=== PATIENT | female | born 1960 | race Caucasian/White ===

== ENCOUNTER 2019-10-12 13:30 | Outpatient (RCR) | payer MEDICARE, BC, SELFPAY ==
--- NOTE | 2019-09-22 13:35 | PTOPEVAL ---
Thank you for referring this patient to [facility]. Please review, sign, date and return this plan of care AVERY. Pt seen for initial physical therapy evaluation to address impairments related to her left shoulder pain. She requires additional skilled therapy 2x/wk x 8 wk to achieve therapy goals and improve UE function. I agree with and certify that the following plan of care is medically necessary. 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 She is Family unable to note a specific injury to her left UE. She reports all movements and position cause increased pain. She reports radiating numbness and tingling of left UE with decreased light touch sensation. 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 The pain is waking her at night. She has tried various position of left UE without relief of symptoms . She is unable to victoria prone position due to shoulder pain. She is unable to sitting or being supine due to bladder pacemaker. She was getting monthly massages, but is unable to to
--- NOTE | 2019-10-03 14:50 | PCPTNOTE ---
Patient called & cancelled scheduled appointment this date.
--- NOTE | 2019-10-10 14:11 | PCPTNOTE ---
Patient called & cancelled scheduled appointment this date due to illness
--- NOTE | 2019-10-17 14:03 | PCPTNOTE ---
Patient called & cancelled scheduled appointment this date due to illness.
--- NOTE | 2019-11-11 10:09 | PCPTNOTE ---
Admitting Provider: Attending Provider: Luigi Mello MD Patient:Jennifer Martinez Date of :1960 Patient has not returned for any further treatments since 10/12/2019, therefore she will be discharged from therapy at this time. The goals have not been achieved due to pt seen for 4 therapy visits. Thank you for referring this patient to [facility]. Please review, sign, date and return this discharge summary AVERY. I have been updated about the patient's current status and I agree with discharge from the above service at this time. Referring Physician Date
== END 2019-11-11 10:43 | disposition home or self-care (01) ==
LOC: ANHPT 13:30
PROVIDERS: PCP Internal Medicine; Visit Provider Internal Medicine
DX: M25.512 Pain in left shoulder (principal)
CPT/HCPCS: 97014; 97110; 97140; 97162; G0283

== ENCOUNTER 2021-02-11 09:27 | Outpatient (CLI) | payer MEDICARE, BC, SELFPAY ==
--- NOTE | ~2021-02-11 | MM_ITS ---
EXAMINATION: MM screening [facility] BI w nga HISTORY: Screening mammogram TECHNIQUE: Craniocaudal and mediolateral oblique 3-D tomosynthesis images were obtained and synthetic 2-D images were generated. CAD analysis was submitted and interpreted. COMPARISON: 11/30/2018, 11/26/2017, 11/24/2016 BREAST PARENCHYMAL COMPOSITION: There are scattered areas of fibroglandular density. FINDINGS: Again noted is a stable mass in the posterior third outer left breast, considered benign gi catrina the lack of interval change. There is no evidence of suspicious mass, calcification, or biztalk architect ural distortion to suggest malignancy in either breast. There has been no suspicious interval change. IMPRESSION: 1. No mammographic evidence of malignancy. 2. Recommend routine screening mammography in one year. BI-RADS Category 2: Benign finding(s). Reviewed, dictated and finalized at location A.
--- NOTE | ~2021-02-11 | CT_ITS ---
EXAMINATION:CT lung screening DATE: 02/11/2021 10:44 INDICATION: Personal history of tobacco dependence. Current smoker with 40 pack year history. TECHNIQUE: Computed tomography (CT) of the chest was performed without intravenous contrast. Automate d exposure control and iterative reconstruction technique were employed. The dose-length product (DLP ) was 79.15 mGy-cm. COMPARISON: Chest CT 07/05/2019 FINDINGS: There is mild scarring at the lung apices. There is mild emphysema. There is mild atelectas is bilaterally. A calcified left lung nodule and calcified left hilar and mediastinal lymph nodes are consistent with old granulomatous disease. No pleural effusion. The heart size is normal. There are coronary artery calcifications. No pericardial effusion. There are changes of anterior fusion procedu re in cervical spine. Calcifications in the spleen are consistent with old granulomatous disease. The re is mild thoracic spondylosis. IMPRESSION: 1. Lung-RADS category 2: Benign appearance or behavior. Continue annual screening with noncontrast lo w-dose chest CT in 12 months. Reviewed, dictated and finalized at location B. IMPRESSION: 1. Lung-RADS category 2: Benign appearance or behavior. Continue annual screeni ng with noncontrast low-dose chest CT in 12 months.
== END 2021-02-11 09:28 | disposition home or self-care (01) ==
LOC: ANHIMG 09:29
PROVIDERS: PCP Internal Medicine; Visit Provider Internal Medicine
DX: Z12.31 Encounter for screening mammogram for malignant neoplasm of breast (principal); Z87.891 Personal history of nicotine dependence
CPT/HCPCS: 71271; 77063; 77067

== ENCOUNTER 2021-08-07 08:06 | Outpatient (CLI) | payer MEDICARE, BC, SELFPAY ==
--- NOTE | 2021-08-26 12:09 | WPDSLEEPSTUD ---
Sleep Study Date of Study: 08/07/21 <Jesusita Washington DO - Last Filed: 08/26/21 13:47> Ordering Provider: Mukesh Mederos APRN <Jesusita Washington DO - Last Filed: 08/26/21 13:47> Interpreting Physician: Jesusita Washington DO <Jesusita Washington DO - Last Filed: 08/26/21 13:47> Sleep Study Type: Polysomnogram <Jesusita Washington DO - Last Filed: 08/26/21 13:47> Height: 1.65 m <Jesusita Washington DO - Last Filed: 08/26/21 13:47> Weight: 66.224 kg <Jesusita Washington DO - Last Filed: 08/26/21 13:47> Body Mass Index: 24.3 <Jesusita Washington DO - Last Filed: 08/26/21 13:47> Neck Circumference (inches): 13.5 <Jesusita Washington DO - Last Filed: 08/26/21 13:47> [place]: 8 <Jesusita Washington DO - Last Filed: 08/26/21 13:47> Reason for Sleep Study Needs new CPAP equipment and Medicare needs her to requalify for PAP. Dancing legs at night. <Jesusita Washington DO - Last Filed: 08/26/21 13:47> Sleep History The patient is a 61-year-old female with non ischemic cardiomyopathy, hypertension, hyperlipidemia, Type 2 DM, Rheumatoid Arthritis, and ANYA on CPAP that needs a new machine. The patient states that she uses her CPAP every night. the patient states that her legs jump throughout the night. She was diagnosed with ANYA in [address] Abdi Lucas at [facility]. The patient states that she rarely awakens from sleep short of breath. She wears early awakens at night with heartburn, belching or cough. She constantly snores loud enough that others complain. She constantly has trouble sleeping when she has a cold. She rarely wakes up gasping for air throughout the night. She frequently has breathing problems at night observed by others. She constantly sweats of sessile E at night. She occasionally notices heart palpitations or irregular heartbeats throughout the night. She denies falling asleep during the day and while driving. She denies sleep paralysis. She rarely experiences loss of muscle tone when extremely emotional. She rarely experiences vivid dreamlike scenes upon awakening or falling asleep. She occasionally has nightmares. She frequently remembers her dreams. She occasionally has thoughts racing through her mind. She occasionally feels sad, depressed and anxious. She constantly notices parts of her body jerk as well as kicking throughout the night. She rarely experiences crawling and aching feelings in her legs. She rarely experiences leg pain during the night. She rarely grinds her teeth during sleep but will occasionally awaken with morning jaw pain. She is frequently bothered by pain during the day and is occasionally awakened by pain during the night. She constantly wakes up feeling stiff in the morning with sore and achy muscles. She does not have a set bedtime on weekdays. She will go to bed around midnight on the weekends. She does unsure how long it takes her to fall asleep. She will wake up 3 times throughout the night. When she wakes up, she will use the restroom or get something to drink. She wakes up between 8 and 9:00 a.m. on the weekdays and between 9 and 10:00 a.m. on the weekends. She typically gets 7 hours of sleep per night. She does not stay in bed after waking up in the morning. She is currently living with her . She is retired. She does not consume any caffeinated beverages within 2 hours of bedtime. She does not engage in physical exercise before bedtime. She will watch television before falling asleep. She does not take naps in the afternoon or the evening. She smokes 5 cigarettes per day. She drinks 2 caffeinated beverages per day. She will drink alcohol once per week. She denies recreational drug use. <Jesusita Washington DO - Last Filed: 08/26/21 13:47> [facility] Past Medical History Medical History: Medical History Abdominal discomf
[2021-08-26 13:45] VITALS: BMI 24.3
== END 2021-08-08 08:11 | disposition home or self-care (01) ==
LOC: ANHCSM 08:16
PROVIDERS: PCP Internal Medicine; Visit Provider Nurse Practitioner Family
DX: G47.10 Hypersomnia, unspecified (principal); G47.33 Obstructive sleep apnea (adult) (pediatric); Z99.89 Dependence on other enabling machines and devices; G47.61 Periodic limb movement disorder
CPT/HCPCS: 95810

== ENCOUNTER → 2021-10-24 02:26 | Outpatient (CLI) | payer MEDICARE, BC, SELFPAY ==
[2021-10-24 14:28] LABS: Influenza A QL RT-PCR Negative (Negative); Influenza B QL RT-PCR Negative (Negative)
[2021-10-24 21:12] LABS: SARS-CoV-2 RNA PCR Negative
== END ==
PROVIDERS: PCP Internal Medicine; Visit Provider Internal Medicine
DX: R68.89 Other general symptoms and signs (principal); Z20.822 Contact with and (suspected) exposure to COVID-19
CPT/HCPCS: 87502; C9803; U0003; U0005

== ENCOUNTER 2021-10-30 14:06 | Outpatient (CLI) | payer MEDICARE, BC, SELFPAY | END 2021-10-30 14:07 | disposition home or self-care (01) | PROVIDERS: PCP Internal Medicine; Visit Provider Nurse Practitioner Family | DX: G47.61 Periodic limb movement disorder (principal) | CPT/HCPCS: 36415; 82728 ==

== ENCOUNTER 2021-11-05 07:42 | Outpatient (CLI) | payer MEDICARE, BC, SELFPAY ==
--- NOTE | 2021-11-12 12:34 | WPDHOMESLEEP ---
Sleep Study - Home Unattended Date of Study: 11/05/21 <Jesusita Washington DO - Last Filed: 11/12/21 12:57> Ordering Provider: Mukesh Mederos APRN <Jesusita Washington DO - Last Filed: 11/12/21 12:57> Interpreting Provider: Jesusita Washington DO <Jesusita Washington, DO - Last Filed: 11/12/21 12:57> Home Sleep Study Type: Apnea Link Air <Jesusita Washington DO - Last Filed: 11/12/21 12:57> Height: 1.65 m <Jesusita Washington DO - Last Filed: 11/12/21 12:57> Weight: 62.142 kg <Jesusita Washington DO - Last Filed: 11/12/21 12:57> Body Mass Index: 22.8 <Jesusita Washington DO - Last Filed: 11/12/21 12:57> Neck Circumference (inches): 13.5 <Jesusita Washington DO - Last Filed: 11/12/21 12:57> [place]: 8 <Jesusita Washington DO - Last Filed: 11/12/21 12:57> Reason for Sleep Study Patient has known ANYA and needs new equipment. <Jesusita Washington DO - Last Filed: 11/12/21 12:57> Sleep History The patient is a 61-year-old female with hypertension, nonischemic cardiomyopathy, GERD, irritable bowel syndrome, rheumatoid arthritis, type 2 diabetes, asthma and known ANYA that had a home sleep test ordered by the pulmonary group so the patient could get new CPAP equipment. The patient states that she uses her CPAP every night. the patient states that her legs jump throughout the night. She was diagnosed with ANYA in [address] Abdi Lucas at [facility]. The patient states that she rarely awakens from sleep short of breath. She wears early awakens at night with heartburn, belching or cough. She constantly snores loud enough that others complain. She constantly has trouble sleeping when she has a cold. She rarely wakes up gasping for air throughout the night. She frequently has breathing problems at night observed by others. She constantly sweats of sessile E at night. She occasionally notices heart palpitations or irregular heartbeats throughout the night. She denies falling asleep during the day and while driving. She denies sleep paralysis. She rarely experiences loss of muscle tone when extremely emotional. She rarely experiences vivid dreamlike scenes upon awakening or falling asleep. She occasionally has nightmares. She frequently remembers her dreams. She occasionally has thoughts racing through her mind. She occasionally feels sad, depressed and anxious. She constantly notices parts of her body jerk as well as kicking throughout the night. She rarely experiences crawling and aching feelings in her legs. She rarely experiences leg pain during the night. She rarely grinds her teeth during sleep but will occasionally awaken with morning jaw pain. She is frequently bothered by pain during the day and is occasionally awakened by pain during the night. She constantly wakes up feeling stiff in the morning with sore and achy muscles. She does not have a set bedtime on weekdays. She will go to bed around midnight on the weekends. She does unsure how long it takes her to fall asleep. She will wake up 3 times throughout the night. When she wakes up, she will use the restroom or get something to drink. She wakes up between 8 and 9:00 a.m. on the weekdays and between 9 and 10:00 a.m. on the weekends. She typically gets 7 hours of sleep per night. She does not stay in bed after waking up in the morning. She is currently living with her . She is retired. She does not consume any caffeinated beverages within 2 hours of bedtime. She does not engage in physical exercise before bedtime. She will watch television before falling asleep. She does not take naps in the afternoon or the evening. She smokes 5 cigarettes per day. She drinks 2 caffeinated beverages per day. She will drink alcohol once per week. She denies recreational drug use. <Jesusita Washington, DO - Last Filed: 11/12/21 12:57> [facility] Past Medical History Medical History: Medical
[2021-11-12 12:40] VITALS: BMI 22.8
== END 2021-11-08 14:28 | disposition home or self-care (01) ==
PROVIDERS: PCP Internal Medicine; Visit Provider Nurse Practitioner Family
DX: G47.33 Obstructive sleep apnea (adult) (pediatric) (principal); G47.10 Hypersomnia, unspecified
CPT/HCPCS: 95806

== ENCOUNTER 2022-01-28 13:25 | Outpatient (CLI) | payer MEDICARE, BC, SELFPAY ==
--- NOTE | ~2022-01-28 | XR_ITS ---
EXAMINATION: XR sacrum coccyx min 2V INDICATION: Pain after fall TECHNIQUE: Three views of the sacrum and coccyx are obtained. COMPARISON: None available FINDINGS: Bone alignment is normal. No fracture is identified. An electronic stability device is impl anted in the posterior subcutaneous tissues on the right. Its lead enters the left pelvis through the left S3 neural foramen. A right pelvic phlebolith is noted. IMPRESSION: 1. No acute osseous abnormality. Reviewed, dictated and finalized at location F.
== END 2022-01-28 13:26 | disposition home or self-care (01) ==
PROVIDERS: PCP Internal Medicine; Visit Provider Internal Medicine
DX: M53.3 Sacrococcygeal disorders, not elsewhere classified (principal)
CPT/HCPCS: 72220

== ENCOUNTER 2022-04-16 10:23 | Outpatient (CLI) | payer MEDICARE, BC, SELFPAY ==
--- NOTE | ~2022-04-16 | DEXA_ITS ---
Bone Density Report Name: SHEILA ESCOBAR Age: 62 Sex: Female Ethnicity: White Date of : 1960 Indication: postmenopausal; screening for osteoporosis; height loss; hysterectomy; rheumatoid arthritis; Referring Provider: JEAN CARLOS CAMPBELL Study: Bone densitometry was performed. Exam Date: April 16, 2022 Accession number: [id number] Bone Density: Region BMD T-score Z-score Classification AP Spine(L1-L4) 1.093 0.4 2.0 Normal Femoral Neck (Left) 0.816 -0.3 1.1 Normal Total Hip (Left) 0.862 -0.7 0.5 Normal Femoral Neck (Right) 0.820 -0.3 1.2 Normal Total Hip (Right) 0.891 -0.4 0.7 Normal Total Hip Mean 0.876 -0.6 0.6 Normal World Health Organization criteria for BMD impression classify patients as: Normal (T-score at or above -1.0), Osteopenia (T-score between -1.0 and -2.5), or Osteoporosis (T-score at or below -2.5). 10-year Fracture Risk: FRAX not reported because: All T-scores for Spine Total, Hip Total, Femoral Neck at or above -1.0 Clinical Information Provided by Patient: Has rheumatoid arthritis Has used the following medications: Vitamin D, Calcium Has the following medical conditions: Hysterectomy Patient maximum height was 65 Menopause Age: 31 No regular weight bearing exercise Drinks caffeinated beverages Onset of menses at age 10 Number of children 1 Impression: The patient has normal bone mass. Discussion: BONE DENSITY IS ABOVE THE MINIMUM DESIRABLE LEVEL AT ALL SKELETAL SITES TESTED. This patient?s bone mineral density is above the minimum desirable level (T-score -1.0 or better) at all sites measured. The patient should follow a healthful lifestyle (good nutrition with adequate calcium and vitamin D, and appropriate weight-bearing exercise). Follow-Up: Consider repeating this study in 5 years or sooner if there is some new clinical indication. Reported by: [facility] on 04/16/2022 11:03:00 AM. Reviewed, dictated and finalized at location ABreann BERNSTEIN
--- NOTE | ~2022-04-16 | MM_ITS ---
EXAMINATION: MM screening [facility] BI w nga HISTORY: Screening mammogram TECHNIQUE: Craniocaudal and mediolateral oblique 3-D tomosynthesis images were obtained and synthetic 2-D images were generated. CAD analysis was submitted and interpreted. COMPARISON: 02/11/2021, 11/30/2018, 11/26/2017 BREAST PARENCHYMAL COMPOSITION: There are scattered areas of fibroglandular density. FINDINGS: A stable mass in the posterior third of the outer left breast is considered benign given th e lack of interval change. There is no suspicious mass, calcification, or architectural distortion to suggest malignancy in either breast. There has been no suspicious interval change. IMPRESSION: 1. No mammographic evidence of malignancy. 2. Recommend routine screening mammography in one year. BI-RADS Category 2: Benign finding(s). Reviewed, dictated and finalized at location A.
== END 2022-04-16 10:24 | disposition home or self-care (01) ==
PROVIDERS: PCP Internal Medicine; Visit Provider Internal Medicine
DX: Z12.31 Encounter for screening mammogram for malignant neoplasm of breast (principal); Z78.0 Asymptomatic menopausal state
CPT/HCPCS: 77063; 77067; 77080

== ENCOUNTER 2022-05-06 13:11 | Outpatient (CLI) | payer MEDICARE, BC, SELFPAY ==
--- NOTE | ~2022-05-06 | CT_ITS ---
EXAMINATION:CT lung screening DATE: 05/06/2022 13:29 INDICATION: Tobacco use. Smoker who quit 2 years ago with 42 pack year history. TECHNIQUE: Computed tomography (CT) of the chest was performed without intravenous contrast. Automate d exposure control and iterative reconstruction technique were employed. The dose-length product (DLP ) was 69.18 mGy-cm. COMPARISON: Chest CT 02/11/2021 FINDINGS: There is mild emphysema. There is chronic mild scarring at the lung apices. There is chroni c peripheral septal thickening in the lungs. Calcified left lung nodules and calcified left hilar and mediastinal lymph nodes are consistent with old granulomatous disease. There is a 2 mm nodule in rig ht upper lobe. No pleural effusion. The heart size is normal. There are coronary artery calcification s. No pericardial effusion. Calcifications in the liver and spleen are consistent with old granulomat ous disease. There is mild thoracic spondylosis. There are changes of anterior fusion procedure in ce rvical spine. IMPRESSION: 1. Lung-RADS category 2: Benign appearance or behavior. Continue annual screening with noncontrast lo w-dose chest CT in 12 months. Reviewed, dictated and finalized at location A. IMPRESSION: 1. Lung-RADS category 2: Benign appearance or behavior. Continue annual screeni ng with noncontrast low-dose chest CT in 12 months.
== END 2022-05-06 13:12 | disposition home or self-care (01) ==
PROVIDERS: PCP Internal Medicine; Visit Provider Physician Assistant
DX: Z12.2 Encounter for screening for malignant neoplasm of respiratory organs (principal); Z87.891 Personal history of nicotine dependence
CPT/HCPCS: 71271

== ENCOUNTER 2022-06-24 00:04 | Day surgery (SDC) | payer MEDICARE, BC, SELFPAY ==
--- NOTE | 2022-06-06 14:16 | PC.NURSE ---
pt denies any changes in medication or medical hx since last PAT phone call. verified new date and time of procedure. pt denies any questions.
[2022-06-24 07:13] VITALS: BP 117/76; PULSE 108; RESP 20; TEMP 36.7; O2SAT 99
[2022-06-24] MEDS: LACTATED RINGERS 1,000 ML 150 ML IV CONT (07:15)
[2022-06-24 07:22] LABS: Glucose Point of Care 182 mg/dl (65-105)
--- NOTE | 2022-06-24 07:41 | WPDANESEPPF ---
Anes - Initial Pre Proc Eval Procedure: Operation Date: 06/24/22 08:30 Proposed Procedures p Esophagogastroduodenoscopy & Screening Colonoscopy - Felix Easley MD Date/Time: 06/24/22 07:41 Surgeon: Felix Easley MD Pre Op Diagnosis: nausea, hx of colon polyps Patient Data Age: 62 Gender: F Height: 1.65 m Weight: 62.2 kg Last Vital Signs Temp 36.7 C 06/24/22 07:13 Pulse 108 H 06/24/22 07:13 Resp 20 06/24/22 07:13 BP 117/76 06/24/22 07:13 Pulse Ox 99 06/24/22 07:13 O2 Del Method Room Air 06/24/22 07:13 Allergies Allergy/AdvReac Type Severity Reaction Status Date / Time adhesive tape Allergy Intermediate Blister Verified 06/24/22 07:10 ALEERGY MEDS W DECONGESTANT Allergy Intermediate Palpitation Uncoded 05/14/22 10:48 s Home Medications Medication Instructions Recorded Confirmed Type metoprolol succinate 100 mg 100 mg PO DAILY #90 tabs 01/11/21 05/14/22 Rx tablet,extended release 24 hr alprazolam 0.5 mg tablet,extended 0.5 mg PO DAILY PRN anxiety #30 07/23/21 05/14/22 Rx release 24 hr (Xanax XR) tabs losartan 25 mg tablet 25 mg PO DAILY #1 tablet 07/23/21 05/14/22 Rx multivitamin (Multiple Vitamins 1 tablet PO DAILY 07/23/21 05/14/22 History tablet) vitamin B complex (B 1 tablet PO DAILY 07/23/21 05/14/22 History Complex-Vitamin B12 tablet) gabapentin 300 mg capsule 300 mg PO TID 90 days #270 caps 03/10/22 05/14/22 Rx atorvastatin 40 mg tablet 40 mg PO DAILY #90 tabs 03/25/22 05/14/22 Rx duloxetine 60 mg capsule,delayed 60 mg PO BID #180 caps 03/31/22 05/14/22 Rx release potassium chloride 20 mEq 20 meq PO BID #180 tabs 04/17/22 05/14/22 Rx tablet,extended release hydroxychloroquine 200 mg tablet 200 mg PO DAILY #90 tabs 05/12/22 05/14/22 Rx (Plaquenil) leflunomide 20 mg tablet 20 mg PO DAILY #90 tabs 05/12/22 05/14/22 Rx amlodipine 10 mg tablet 10 mg PO DAILY 05/14/22 05/14/22 History omeprazole 40 mg capsule,delayed 40 mg PO DAILY 05/14/22 05/14/22 History release Laboratory Tests 06/24/22 07:19 POC Capillary Glucose 182 mg/dl H mg/dl (65-105) Patient hx anesthesia problems: none Family hx anesthesia problems: none Results Review: All pre-operative results and documents have been reviewed as part of the pre-operative evaluation. [facility] Past Medical History Medical History Abdominal discomfort Abnormal echocardiogram Abnormal findings on esophagogastroduodenoscopy (EGD) Acute recurrent sinusitis Adenomatous polyp of colon Allergies RUMA positive Anxiety Arthralgia of both hands Arthritis Bilateral impacted cerumen Chronic diarrhea Colitis COPD exacerbation Diabetes Diarrhea, unspecified Dietary counseling and surveillance (01/08/17) Encounter for medication counseling Essential (primary) hypertension Establishing care with new doctor, encounter for Gastroesophageal reflux Health counseling HTN (hypertension) Irritable bowel syndrome with diarrhea Left anterior shoulder pain Loose stools Lung nodule Microscopic colitis Microscopic hematuria Nausea ANYA (obstructive sleep apnea) Osteoarthritis involving multiple joints on both sides of body Other chronic pain Other specified diabetes mellitus with diabetic polyneuropathy Pain in left hand (03/22/19) Pain in right hand (03/22/19) Postmenopausal Potassium (K) deficiency Rheumatoid arthritis (~1999) Rheumatoid arthritis involving multiple sites with positive rheumatoid factor Screening mammogram, encounter for Seropositive rheumatoid arthritis of hand Systolic dysfunction Systolic murmur Tobacco use Type 2 diabetes mellitus with complication, without long-term current use of insulin Type 2 diabetes mellitus with hyperglycemia Unspecified asthma, uncomplicated Weight loss Yeast infection Surgical History Surgical History (Updated 06/24/22 @ 07:44 by Jayjay Gao MD) H/O col
--- NOTE | 2022-06-24 08:17 | PM.HPGS ---
History of Present Illness History of Present Illness Consent: Risks, benefits, and alternatives have been discussed and questions answered. Patient agrees to proceed with procedure. Chief complaint: nausea, hx of colon polyps Narrative: Jennifer Martinez is a 62 year old female here for another egd and colonoscopy. She has h/o RA and SLE, she is not longer on rituxamab because weight loss 2018, now on leflunamide and plaquenil. I saw her on 2019 when had EGD that showed gastritis, normal duodenal bx, random colon bx with mild colitis and had 2cm TA polyp remover over submucosal injection with dysplasia. She has chronic diarrhea but worsened with accidents, last office visit prescribed budesonide. Review of Systems Constitutional: Constitutional: Denies headache(s) and Denies weakness Eyes: Eyes: Denies blurry vision ENT: Reports Normal hearing present, Denies headache(s) and Denies neck pain Cardiovascular: Cardiovascular: Denies chest pain and Denies dyspnea Respiratory: Respiratory: Denies dyspnea Gastrointestinal: Gastrointestinal: Reports no additional gastrointestinal complaints Genitourinary: Genitourinary: Denies dysuria Musculoskeletal: Musculoskeletal: Denies neck pain Integumentary/Breasts: Skin/Breast: Denies dry skin Neurologic: Reports Normal hearing present, Denies headache(s) and Denies weakness Psychiatric: Psychiatric: Denies anxiety Endocrine: Endocrine: Denies change in body appearance Hematologic/Lymphatic: Hematologic/Lymphatic: Denies easy bleeding Allergic/Immunologic: Allergic/Immunologic: Denies urticaria PMFSH Past Medical History Medical History Abdominal discomfort Abnormal echocardiogram Abnormal findings on esophagogastroduodenoscopy (EGD) Acute recurrent sinusitis Adenomatous polyp of colon Allergies RUMA positive Anxiety Arthralgia of both hands Arthritis Bilateral impacted cerumen Chronic diarrhea Colitis COPD exacerbation Diabetes Diarrhea, unspecified Dietary counseling and surveillance (01/08/17) Encounter for medication counseling Essential (primary) hypertension Establishing care with new doctor, encounter for Gastroesophageal reflux Health counseling HTN (hypertension) Irritable bowel syndrome with diarrhea Left anterior shoulder pain Loose stools Lung nodule Microscopic colitis Microscopic hematuria Nausea ANYA (obstructive sleep apnea) Osteoarthritis involving multiple joints on both sides of body Other chronic pain Other specified diabetes mellitus with diabetic polyneuropathy Pain in left hand (03/22/19) Pain in right hand (03/22/19) Postmenopausal Potassium (K) deficiency Rheumatoid arthritis (~1999) Rheumatoid arthritis involving multiple sites with positive rheumatoid factor Screening mammogram, encounter for Seropositive rheumatoid arthritis of hand Systolic dysfunction Systolic murmur Tobacco use Type 2 diabetes mellitus with complication, without long-term current use of insulin Type 2 diabetes mellitus with hyperglycemia Unspecified asthma, uncomplicated Weight loss Yeast infection Surgical History Surgical History (Updated 06/24/22 @ 07:44 by Jayjay Gao MD) H/O colonoscopy History of esophagogastroduodenoscopy (EGD) Family History Family History Mother Diabetes mellitus Family history of osteoporosis Family history of malignant neoplasm Father Cerebrovascular accident Family history of congestive heart failure Other Family history of cardiovascular disease Family history of mental disorder Hypertension Social History Social History Social History: Quit smoking 2019. Smoking packs per day: 0.5 Smoking cigarettes per day: 10.0 Years smoked: 40 Smoking pack-years: 20.00 Smoking status: Former smoker Tobacco type: cigarettes Second hand tobacco smok
--- NOTE | 2022-06-24 08:43 | SUR.OPER ---
EGD ended at 836. Colonoscopy started at 08.
[2022-06-24 08:53] VITALS: BP 86/56; PULSE 87; RESP 24; O2SAT 95
[2022-06-24 09:03] VITALS: BP 74/47; PULSE 80; RESP 24; O2SAT 96
--- NOTE | 2022-06-24 09:04 | SUR.PHASEII ---
Notified Dr. Gao that patient not responding and BP 70s/40s. Dr. Gao assessed patient and found response to painful stimuli. 0910 - patient responding to verbal stimuli now.
[2022-06-24 09:13] VITALS: BP 104/74; PULSE 82; RESP 24; O2SAT 99
== END 2022-06-24 09:38 | disposition home or self-care (01) ==
PROVIDERS: PCP Internal Medicine; Visit Provider Internal Medicine Gastroenterology
PROC: 0DJ08ZZ Inspection of Upper Intestinal Tract, Via Natural or Artificial Opening Endoscopic (ICD-10-PCS; CPT 43235; principal; 2022-06-24 08:30)
DX: K52.832 Lymphocytic colitis (principal); D12.3 Benign neoplasm of transverse colon; K64.8 Other hemorrhoids; K21.9 Gastro-esophageal reflux disease without esophagitis; K22.70 Barrett's esophagus without dysplasia; K29.70 Gastritis, unspecified, without bleeding; J44.9 Chronic obstructive pulmonary disease, unspecified; F41.9 Anxiety disorder, unspecified; G47.33 Obstructive sleep apnea (adult) (pediatric); E11.42 Type 2 diabetes mellitus with diabetic polyneuropathy; M06.9 Rheumatoid arthritis, unspecified; I11.9 Hypertensive heart disease without heart failure; Z87.891 Personal history of nicotine dependence
CPT/HCPCS: 45380; 45385; 43239; 82948; 88305; J2001; J2704; J7120

== ENCOUNTER 2022-09-06 20:24 | Emergency (ER) | payer MEDICARE, BC, SELFPAY ==
--- NOTE | ~2022-09-06 | XR_ITS ---
EXAMINATION: XR chest 1V portable Exam Date/Time: 09/06/2022 20:52 DIGITAL PHOTOGRAPHER HISTORY: flu like symptoms; hx of HTN, COPD, DM, prev smoker Comparison: 07/14/2019. RESULT: Lines, tubes, and devices: Cervical fusion hardware. Lungs and pleura: Clear. Cardiomediastinal silhouette: Stable. Other: No acute osseous or upper abdominal finding. IMPRESSION: No acute cardiopulmonary process. Reviewed, dictated and finalized at location K. TAL PHOTOGRAPHER
[2022-09-06 20:23] VITALS: BP 132/89; PULSE 100; RESP 20; TEMP 37.1; O2SAT 96
--- NOTE | 2022-09-06 20:35 | ECG_ITS ---
Measurements Intervals [place] Rate: 83 P: 2 IA: 141 QRS: 73 QRSD: 88 T: 100 QT: 383 QTc: 451 Interpretive Statements SINUS RHYTHM BASELINE ARTIFACT ST DEVIATION AND MODERATE T-WAVE ABNORMALITY, CONSIDER ANTEROLATERAL ISCHEMIA ABNORMAL ECG COMPARED TO ECG 07/14/2019 13:55:35 NO SIGNIFICANT CHANGES Electronically Signed On 09-07-2022 13:35:10 MOWING MACHINE OPERATOR by Michael Flores M.D.
--- NOTE | 2022-09-06 20:48 | ED.GENADULT ---
HPI - General Adult General Chief complaint: Dizziness Stated complaint: N/V, FEVER, BODYACHES 3 DAYS History of Present Illness HPI narrative: this is a 62-year-old female presenting ED with 3 days of flu-like symptoms. Symptoms included headache, body aches nausea vomiting diarrhea fever and chills. She has also had some diffuse abdominal pain that is related to her vomiting. Patient has been able to tolerate liquid but has not been able to tolerate food. She did get vaccinated against the flu on Thursday. She denies sick contacts at home. She is vaccinated induced against COVID. She denies chest pain, difficulty breathing or urinary symptoms. Related Data Home Medications Medication Instructions Recorded Confirmed multivitamin (Multiple Vitamins 1 tablet PO DAILY 07/23/21 08/05/22 tablet) vitamin B complex (B 1 tablet PO DAILY 07/23/21 08/05/22 Complex-Vitamin B12 tablet) Allergies Allergy/AdvReac Type Severity Reaction Status Date / Time adhesive tape Allergy Intermediate Blister Verified 08/05/22 10:12 ALEERGY MEDS W DECONGESTANT Allergy Intermediate Palpitation Uncoded 08/05/22 10:12 s Review of Systems Review of Systems: CONSTITUTIONAL: Denies night sweats. EYES: No eye pain ENT: Denies rhinorrhea CARDIOVASCULAR: Denies palpitations RESPIRATORY: Denies hemoptysis GASTROINTESTINAL: Denies hematemesis GENITOURINARY: Denies hematuria. SKIN: Denies rash MUSCULOSKELETAL: Denies myalgia. NEUROLOGIC: Denies weakness. PSYCHIATRIC: Denies delusions PMFSH Past Medical History Medical History Abdominal discomfort Abnormal echocardiogram Abnormal findings on esophagogastroduodenoscopy (EGD) Acute recurrent sinusitis Adenomatous polyp of colon Allergies RUMA positive Anxiety Arthralgia of both hands Arthritis Bilateral impacted cerumen Chronic diarrhea Colitis COPD exacerbation Diabetes Diarrhea, unspecified Dietary counseling and surveillance (01/08/17) Encounter for medication counseling Essential (primary) hypertension Establishing care with new doctor, encounter for Gastroesophageal reflux Health counseling HTN (hypertension) Irritable bowel syndrome with diarrhea Left anterior shoulder pain Loose stools Lung nodule Microscopic colitis Microscopic hematuria Nausea ANYA (obstructive sleep apnea) Osteoarthritis involving multiple joints on both sides of body Other chronic pain Other specified diabetes mellitus with diabetic polyneuropathy Pain in left hand (03/22/19) Pain in right hand (03/22/19) Postmenopausal Potassium (K) deficiency Rheumatoid arthritis (~1999) Rheumatoid arthritis involving multiple sites with positive rheumatoid factor Screening mammogram, encounter for Seropositive rheumatoid arthritis of hand Systolic dysfunction Systolic murmur Tobacco use Type 2 diabetes mellitus with complication, without long-term current use of insulin Type 2 diabetes mellitus with hyperglycemia Unspecified asthma, uncomplicated Weight loss Yeast infection Surgical History Surgical History H/O colonoscopy History of esophagogastroduodenoscopy (EGD) Family History Family History Mother Diabetes mellitus Family history of osteoporosis Family history of malignant neoplasm Father Cerebrovascular accident Family history of congestive heart failure Other Family history of cardiovascular disease Family history of mental disorder Hypertension Social History Social History (Updated 08/05/22 @ 10:23 by Trina Sage CMA) Social History: Quit smoking 2019. Smoking packs per day: 0.5 Smoking cigarettes per day: 10.0 Years smoked: 40 Smoking pack-years: 20.00 Smoking status: Former smoker Tobacco type: cigarettes Second hand tobacco smoke exposure: No Alcohol intake: current Drink
[2022-09-06] MEDS: IBUPROFEN 400 MG TABLET 800 MG PO (21:02)
[2022-09-06] MEDS: ACETAMINOPHEN 500 MG TABLET 1000 MG PO (21:02)
[2022-09-06] MEDS: SODIUM CHLORIDE 0.9% IV 2,000 ML 999 ML IV CONT (21:02)
[2022-09-06] MEDS: FAMOTIDINE 20 MG/2 ML VIAL IV PUSH (21:03)
[2022-09-06] MEDS: ONDANSETRON INJ 4 MG/2 ML VIAL IV PUSH (21:03)
[2022-09-06 21:19] LABS: Basophils Percent Auto 0.8 % (0.2-1.2); Eosinophils Percent Auto 0.8 % (0-4.4); Hematocrit 44.6 % (37.0-47.0); Hemoglobin 15.2 g/dL (12.0-15.0); Immature Granulocyte Absolute 0.03 K/mm3 (0.00-0.031); Immature Granulocyte Percent A 0.8 % (0-0.5); Lymphocytes Absolute Auto 0.72 K/mm3 (0.9-3.2); Lymphocytes Percent Auto 18.4 % (18.3-44.2); Mean Corpuscular HGB Conc 34.1 g/dl (32-36); Mean Corpuscular Hemoglobin 31.7 pg (26-34); Mean Corpuscular Volume 93.1 fl (80-100); Mean Platelet Volume 10.9 fl (7.4-10.4); Monocytes Absolute Auto 0.5 K/mm3 (0.1-0.6); Monocytes Percent Auto 12.8 % (2.6-8.5); Neutrophils Absolute Auto 2.6 K/mm3 (1.3-6.7); Neutrophils Percent Auto 66.4 % (45.5-73.1); Platelet Count Result 110 k/mm3 (150-375); Red Blood Count 4.79 M/mm3 (4.2-5.4); White Blood Count 3.9 K/mm3 (4.5-10.0)
[2022-09-06 21:30] LABS: Alanine Aminotransferase 36 U/L (6-35); Albumin Level 4.4 g/dL (3.5-5.1); Alkaline Phosphatase 110 U/L (38-126); Anion Gap 10 mmol/L (8-16); Aspartate Amino Transferase 58 U/L (14-36); Bilirubin,Total 0.7 mg/dL (0.2-1.3); Blood Urea Nitrogen 17 mg/dL (7-17); Carbon Dioxide 25 mmol/L (22-30); Chloride 96 mmol/L (98-107); Estimated CRCL calculation 39 ml/min; Estimated Glomerular Filt Rate 45; Glucose 122 mg/dL (65-110); Lipase 59 U/L (23-300); Magnesium 1.3 mg/dL (1.6-2.3); Sodium 131 mmol/L (137-145)
[2022-09-06 21:54] LABS: Influenza A QL RT-PCR Positive (Negative); Influenza B QL RT-PCR Negative (Negative); SARS-CoV-2 RNA PCR Negative
[2022-09-06] MEDS: POTASSIUM CHLORIDE 20 MEQ TABLET 40 MEQ PO (21:59)
[2022-09-06] MEDS: MAGNESIUM SULF 2 GM/WATER 50ML 2 GM/50 ML BAG IVPB (21:59)
[2022-09-06 22:00] VITALS: BP 121/60; PULSE 90; RESP 18; O2SAT 100
== END 2022-09-06 23:25 | disposition home or self-care (01) ==
PROVIDERS: Emergency Provider Emergency Medicine; PCP Internal Medicine
DX: J10.1 Influenza due to other identified influenza virus with other respiratory manifestations (principal); Z20.822 Contact with and (suspected) exposure to COVID-19; J44.9 Chronic obstructive pulmonary disease, unspecified; E11.42 Type 2 diabetes mellitus with diabetic polyneuropathy; I10 Essential (primary) hypertension; K21.9 Gastro-esophageal reflux disease without esophagitis; K58.0 Irritable bowel syndrome with diarrhea; M05.89 Other rheumatoid arthritis with rheumatoid factor of multiple sites; M19.90 Unspecified osteoarthritis, unspecified site; G47.33 Obstructive sleep apnea (adult) (pediatric); F41.9 Anxiety disorder, unspecified; Z86.010 Personal history of colon polyps; Z87.891 Personal history of nicotine dependence; R94.31 Abnormal electrocardiogram [ECG] [EKG]
CPT/HCPCS: 36415; 71045; 80053; 83690; 83735; 85025; 87636; 93005; 95864; 96361; 96365; 96375; 99284; A9270; J2405; J3475; J7030

== ENCOUNTER 2022-10-08 11:07 | Outpatient (CLI) | payer MEDICARE, BC, SELFPAY ==
--- NOTE | ~2022-10-08 | XR_ITS ---
XR chest 2V DATE: 10/08/2022 11:33 INDICATION: Shortness of breath. Recurrent falls. TECHNIQUE: AP and lateral views COMPARISON: 09/23/2022 portable AP chest at 2055 hours FINDINGS: Bilateral hyperinflation. No pulmonary infiltrate or consolidation, pleural effusion or pul monary vascular congestion or pneumothorax. There is old pulmonary granulomatous disease. No hilar or mediastinal enlargement. Normal heart size. Status post anterior cervical spine surgical fusion. There is osteopenia. IMPRESSION: Bilateral hyperinflation; no active cardiopulmonary disease Reviewed, dictated and finalized at location B. POCKET MACHINE OPERATOR
== END 2022-10-08 11:08 | disposition home or self-care (01) ==
PROVIDERS: PCP Internal Medicine; Visit Provider Nurse Practitioner
DX: R06.02 Shortness of breath (principal); R91.8 Other nonspecific abnormal finding of lung field
CPT/HCPCS: 71046

== ENCOUNTER 2022-10-10 13:36 | Outpatient (CLI) | payer MEDICARE, BC, SELFPAY ==
--- NOTE | ~2022-10-10 | CT_ITS ---
Non-contrast Head CT History: Head injury COMPARISON: 09/07/2017 Technique: Axial non-contrast imaging of the brain was performed. Dose reduction technique was used on this scan by utilizing automated exposure control and iterative reconstruction technique. The dose -length product (DLP) was 605.33 mGy-cm. Findings: There is no evidence of intracranial hemorrhage, mass lesion, or acute infarct. Brain par enchyma appears normal. The ventricles and subarachnoid spaces are normal in size. The calvarium ap pears normal. The visualized paranasal sinuses and mastoid air cells are clear. Impression: No significant abnormality seen. Reviewed, dictated and finalized at [facility]. REEL OPERATOR Impression: No significant abnormality seen.
== END 2022-10-10 13:37 | disposition home or self-care (01) ==
LOC: ANHIMG 13:38
PROVIDERS: PCP Internal Medicine; Visit Provider Nurse Practitioner
DX: S09.90XA Unspecified injury of head, initial encounter (principal); X58.XXXA Exposure to other specified factors, initial encounter
CPT/HCPCS: 70450

== ENCOUNTER 2022-10-11 03:16 | Inpatient (IN) | payer MEDICARE, BC, SELFPAY ==
[2022-10-11] VITALS (12 sets, daily range): BP systolic 90–143; BP diastolic 50–81; PULSE 58–74; RESP 15–20; TEMP 35.8–36.6; O2SAT 96–100; BMI 22.1
--- NOTE | ~2022-10-11 | US_ITS ---
EXAMINATION: US carotid duplex BI DATE: 10/12/2022 20:50 INDICATION: Syncope. TECHNIQUE: Grayscale, color Doppler, and pulsed Doppler images of the cervical carotid arteries were obtained. The degree of vessel stenosis is placed in one of the following categories: normal, <50%, 5 0-69%, >=70% but less than near-occlusion, near-occlusion, or total occlusion. Note that percent sten osis relative to normal distal artery lumen diameter is indirectly measured from velocity measurement s as described by Luis M, et al. Radiology 2003; 229:340-346. COMPARISON: Ultrasound 09/13/2018 FINDINGS: RIGHT: The right common carotid artery (CCA) peak systolic velocity (PSV) is 73 cm/s. The right internal car otid artery (ICA) PSV is 67 cm/s. The right ICA end-diastolic velocity (EDV) is 22 cm/s. The right IC A/CCA PSV ratio is 0.9. Grayscale and color Doppler images yield an estimate of <50% diameter reducti on from plaque in the ICA. There is antegrade flow in the right vertebral artery. LEFT: The left CCA PSV is 63 cm/s. The left ICA PSV is 68 cm/s. The left ICA EDV is 22 cm/s. The left ICA/C CA PSV ratio is 1.1. Grayscale and color Doppler images yield an estimate of <50% diameter reduction from plaque in the ICA. There is antegrade flow in the left vertebral artery. IMPRESSION: 1. <50% stenosis in the right internal carotid artery. 2. <50% stenosis in the left internal carotid artery. Reviewed, dictated and finalized at location A. [employer] ACCOUNT MANAGER
--- NOTE | 2022-10-11 03:32 | ECG_ITS ---
Measurements Intervals [place] Rate: 61 P: 40 MN: 168 QRS: 49 QRSD: 101 T: 66 QT: 436 QTc: 441 Interpretive Statements SINUS RHYTHM NONSPECIFIC T-WAVE ABNORMALITY- HIGH LATERAL LEADS BASELINE ARTIFACT- I, II, AVR, AVL, AVF BORDERLINE ECG COMPARED TO ECG 09/06/2022 21:13:29 ST-T WAVE ABNORMALITY RESOLVED Electronically Signed On 10-11-2022 9:46:06 LEGISLATIVE ANALYST by Navneet Gonzales D.O.
[2022-10-11] MEDS: SODIUM CHLORIDE 0.9% IV 1,000 ML 150 ML IV CONT (03:55)
[2022-10-11 03:56] LABS: Basophils Absolute Auto 0.1 K/mm3 (0.0-0.1); Basophils Percent Auto 0.9 % (0.2-1.2); Eosinophils Absolute Auto 0.6 K/mm3 (0-0.3); Eosinophils Percent Auto 10.2 % (0-4.4); Hematocrit 33.3 % (37.0-47.0); Hemoglobin 10.9 g/dL (12.0-15.0); Immature Granulocyte Absolute 0.02 K/mm3 (0.00-0.031); Immature Granulocyte Percent A 0.4 % (0-0.5); Lymphocytes Absolute Auto 1.66 K/mm3 (0.9-3.2); Lymphocytes Percent Auto 29.1 % (18.3-44.2); Mean Corpuscular HGB Conc 32.7 g/dl (32-36); Mean Corpuscular Hemoglobin 30.6 pg (26-34); Mean Corpuscular Volume 93.5 fl (80-100); Mean Platelet Volume 10.5 fl (7.4-10.4); Monocytes Absolute Auto 0.8 K/mm3 (0.1-0.6); Monocytes Percent Auto 13.9 % (2.6-8.5); Neutrophils Absolute Auto 2.6 K/mm3 (1.3-6.7); Neutrophils Percent Auto 45.5 % (45.5-73.1); Platelet Count Result 196 k/mm3 (150-375); Red Blood Count 3.56 M/mm3 (4.2-5.4); Red Cell Distribution Width 14.1 % (11.5-14.5); White Blood Count 5.7 K/mm3 (4.5-10.0)
[2022-10-11 04:08] LABS: Alanine Aminotransferase 27 U/L (6-35); Albumin Level 3.8 g/dL (3.5-5.1); Alkaline Phosphatase 94 U/L (38-126); Anion Gap 10 mmol/L (8-16); Aspartate Amino Transferase 37 U/L (14-36); Bilirubin,Total 0.7 mg/dL (0.2-1.3); Blood Urea Nitrogen 14 mg/dL (7-17); Carbon Dioxide 21 mmol/L (22-30); Chloride 106 mmol/L (98-107); Estimated Glomerular Filt Rate 30; Glucose 107 mg/dL (65-110); Potassium 3.1 mmol/L (3.4-5.0); Sodium 137 mmol/L (137-145)
--- NOTE | 2022-10-11 04:25 | ED.GENADULT ---
HPI - General Adult General Chief complaint: Recheck/Abnormal Lab/Rx Stated complaint: dizziness Time Seen by Provider: 10/11/22 03:31 Source: patient and family Mode of arrival: ambulatory Limitations: no limitations History of Present Illness HPI narrative: 62-year-old with a history of hypertension, diabetes, recurrent history of hypokalemia and hypomagnesemia was sent by her primary doctor for recurrent syncopal episodes. Patient states that for past several weeks she has been passing out. Patient states that ever since she was diagnosed with influenza and month of September 2022 she has been not feeling well. Complains of extreme fatigue. She states that gets headache with just sudden onset and followed by she loses her strength in her lower extremities. Patient mentions that she had a CAT scan of her head yesterday which was unremarkable. She was called by her primary care doctor last night and was told to go to the emergency room for admission. She presently denies any headache, chest pain or abdominal pain. No history of nausea or vomiting. Patient also mentions that she is unable to get a Holter monitor till Thursday of next week Related Data Home Medications Medication Instructions Recorded Confirmed multivitamin (Multiple Vitamins 1 tablet PO DAILY 07/23/21 10/08/22 tablet) vitamin B complex (B 1 tablet PO DAILY 07/23/21 10/08/22 Complex-Vitamin B12 tablet) Allergies Allergy/AdvReac Type Severity Reaction Status Date / Time adhesive tape Allergy Intermediate Blister Verified 10/07/22 14:00 ALEERGY MEDS W DECONGESTANT Allergy Intermediate Palpitation Uncoded 10/07/22 14:00 s Review of Systems Constitutional: Constitutional: Reports as per HPI Eyes: Eyes: Reports no additional eye complaints ENT: Reports system reviewed and no additional complaints, except as documented Cardiovascular: Cardiovascular: Reports no additional cardiovascular complaints Respiratory: Respiratory: Reports no additional respiratory complaints Gastrointestinal: Gastrointestinal: Reports no additional gastrointestinal complaints Musculoskeletal: Musculoskeletal: Reports no additional musculoskeletal complaints Integumentary/Breasts: Skin/Breast: Reports system reviewed and no additional complaints, except as docu Neurologic: Reports system reviewed and no additional complaints, except as documented Psychiatric: Psychiatric: Reports no additional psychiatric complaints PMFSH Past Medical History Medical History Abdominal discomfort Abnormal echocardiogram Abnormal findings on esophagogastroduodenoscopy (EGD) Acute recurrent sinusitis Adenomatous polyp of colon Allergies RUMA positive Anxiety Arthralgia of both hands Arthritis Bilateral impacted cerumen Chronic diarrhea Colitis COPD exacerbation Diabetes Diarrhea, unspecified Dietary counseling and surveillance (01/08/17) Encounter for medication counseling Essential (primary) hypertension Establishing care with new doctor, encounter for Gastroesophageal reflux Health counseling HTN (hypertension) Irritable bowel syndrome with diarrhea Left anterior shoulder pain Loose stools Lung nodule Microscopic colitis Microscopic hematuria Nausea ANYA (obstructive sleep apnea) Osteoarthritis involving multiple joints on both sides of body Other chronic pain Other specified diabetes mellitus with diabetic polyneuropathy Pain in left hand (03/22/19) Pain in right hand (03/22/19) Postmenopausal Potassium (K) deficiency Rheumatoid arthritis (~1999) Rheumatoid arthritis involving multiple sites with positive rheumatoid factor Screening mammogram, encounter for Seropositive rheumatoid arthritis of hand Systolic dysfunction Systolic murmur Tobacco use Type 2 diabetes mellitus with complication, without long-term current use of insulin Type 2 diabetes mellitus with hyperglycemia Unspecified asthma, uncomplicated Justice
[2022-10-11] MEDS: POTASSIUM CHLORIDE 20 MEQ PACKET (FOR LIQUID) 40 MEQ PO (04:27)
[2022-10-11] MEDS: MAGNESIUM SULF 1 GM/D5W 100 ML 1 GM/100 ML BAG IVPB (04:30)
[2022-10-11] MEDS: MAGNESIUM SULFATE 3GM/D5W100ML 3 GM/100 ML BAG IVPB (05:29)
[2022-10-11 05:47] LABS: Influenza A QL RT-PCR Negative (Negative); Influenza B QL RT-PCR Negative (Negative); SARS-CoV-2 RNA PCR Negative
--- NOTE | 2022-10-11 06:26 | PM.IMHP ---
H&P: HPI History of Present Illness Date/Time: 10/11/22 06:26 Chief Complaint: Weakness, fall Narrative: 62-year-old female with past medical history of rheumatoid arthritis, lupus, lymphocytic colitis result in chronic diarrhea and chronic immunosuppressive therapy who presented to the ER with diarrhea, weakness and multiple falls since she had the flu September 07. The patient reports that for the last several weeks when she is up and walking she will disc fall and does not realize that she fell. She does not realize that she has passed out in will wake up on the floor. She denies having any injury. But whenever she actually gets up off the floor she will hurt all over. She reports that this is been ongoing since she had influenza she has never returned back to her baseline. She has had extreme fatigue in feels as if her muscles are shaking when she stands up. She stands up and and has a headache and a rushing sensation to her head and her lower extremities and arms will collapsed. She does not recall actually falling. Her says that she has the floor quite hard. She she had a CT of her head as outpatient which was negative for any acute process. Her primary care physician had ordered outpatient labs which demonstrated hypokalemia and hypomagnesia. She was directed to come to the ER. She does have some abdominal cramping when she has diarrhea but otherwise has no abdominal pain. She denies any headache or chest pain. She denies any shortness of breath. She has not had any cough or congestion. She stated that when she had the flu she did have some sensation of having a catch her breath for 4 5 days but those symptoms resolved. Her primary care physician ordered a Holter monitor as outpatient but she could not arrange until next Thursday. She has not had any lower extremity swelling, orthopnea or paroxysmal nocturnal dyspnea. She reports multiple watery brown stools a day. Her stools are sometimes mucousy. Review of Systems Review of Systems: 12 systems were reviewed with pertinent positives and negatives per HPI. Except as documented in the HPI, all other systems were reviewed and are negative. [facility] Past Medical History Medical History (Updated 10/12/22 @ 09:20 by Sarahy Rockwell DO) Anxiety Arthritis Batres's esophagus Diabetic neuropathy Diastolic dysfunction Echocardiogram 11/2020: Normal left ventricular systolic function, mild concentric left ventricular hypertrophy, impaired diastolic relaxation grade 1, EF of 55-60, mild tricuspid regurgitation Essential (primary) hypertension Essential hypertension Gastroesophageal reflux Lung nodule Lupus (systemic lupus erythematosus) Lymphocytic colitis Resulting in chronic diarrhea Microscopic hematuria Nonischemic cardiomyopathy Mild left ventricular enlargement ANYA (obstructive sleep apnea) Polysomnogram 11/2021: Mild obstructive sleep apnea with a HI 12.1. CPAP with previous settings versus auto PAP 5-15 Postmenopausal Rheumatoid arthritis (~1999) Tobacco use Type 2 diabetes mellitus Surgical History Surgical History History of colonoscopy with polypectomy (06/2022) Tubular adenoma History of esophagogastroduodenoscopy (EGD) (06/2022) Family History Family History Mother Diabetes mellitus Family history of osteoporosis Family history of malignant neoplasm Father Cerebrovascular accident Family history of congestive heart failure Other Family history of cardiovascular disease Family history of mental disorder Hypertension Social History Social History (Updated 10/12/22 @ 09:16 by Sarahy Rockwell DO) Social History: Code status: Full code Surrogate decision maker: Smoking packs per day: 0.5 Smoking cigarettes per day: 10.0 Years smoked: 40 Smoking pack-years: 20.00 Smoking status: Former smoker
--- NOTE | 2022-10-11 06:35 | PC.NURSE ---
This patient, Jennifer Martinez, was admitted to [facility] Surg Room 314-01. Patient/family oriented to hospital policies and general routines including ID bracelet, bed and alarms, visiting hours, pain management, procedures, bathroom and other care routines, personal items, smoking policy, room service/diet, and visiting hours. Information on how to activate the Rapid Response Team has been discussed. Patient/Family are encouraged to report perceived risks to care and to ask questions if they do not understand what they are told or what they should do.
[2022-10-11 08:26] LABS: Glucose Point of Care 97 mg/dl (65-105)
[2022-10-11 08:29] LABS: Iron 123 ug/dL (37-170)
[2022-10-11 08:40] LABS: Percent Iron Saturation 35 % (20-50)
[2022-10-11 08:45] LABS: Folic Acid 6.5 ng/mL (2.76->20)
[2022-10-11] MEDS: WATER FOR IRRIGATION, STERILE 1,000 ML BOTTLE 1000 ML (11:05)
[2022-10-11 11:38] LABS: Glucose Point of Care 121 mg/dl (65-105)
--- NOTE | 2022-10-11 15:54 | PM.IMPN ---
Progress Note: A&P Assessment and Plan (1) Recurrent syncope: Code(s): R55 - Syncope and collapse Status: Acute Assessment and Plan: Suspect due to recent influenza A causing poor p.o. intake with continued use of antihypertensives in the presence of weight loss and lower blood pressure symptoms have improve since holding antihypertensives at admission October 10 monitor orthostatic blood pressures and symptoms with increased p.o. intake (2) Hypomagnesemia: Code(s): E83.42 - Hypomagnesemia Status: Acute Assessment and Plan: due to poor oral intake hydrochlorothiazide and chronic diarrhea (3) Hypokalemia: Code(s): E87.6 - Hypokalemia Status: Acute Assessment and Plan: due to poor oral intake hydrochlorothiazide and chronic diarrhea (4) Anemia: Qualifiers: Anemia type: unspecified type Qualified Code(s): D64.9 - Anemia, unspecified Code(s): D64.9 - Anemia, unspecified Status: Acute Assessment and Plan: appears to be anemia of chronic disease with normal iron B12 folic acid and indices (5) Acute kidney injury: Code(s): N17.9 - Acute kidney failure, unspecified Status: Acute Assessment and Plan: likely due to dehydration caused by poor oral intake during influenza a, chronic diarrhea, diuretic use, hypotension, and NSAID use 10/11 creatinine 1.7 continue to monitor with increased oral intake Plan Multiple episodes of syncope versus near-syncope. The patient does have acute kidney injury and electrolyte abnormalities. I suspect that the patient's symptoms are due to volume depletion and dehydration resulting in orthostatic changes. Orthostatic blood pressures and pulses have been ordered. Will monitor urine output closely and avoid nephrotoxic medications. The patient also has chronic diarrhea which would contribute to the symptoms. A total of 4 g of magnesium sulfate was given in the ER. The patient also received 40 mEq of potassium chloride to replace electrolyte abnormalities. Patient does have type 2 diabetes mellitus but glucoses are currently stable. Patient's home med rec is not yet available for my review to determine the patient's home medication regimen. But it appears the patient is likely diet-controlled diabetes. Consistent carbohydrate diet has been ordered. The patient does have acute on chronic anemia. Will check stool for occult blood. Patient did have recent ferritin in October that was normal. Will also check iron and TIBC as well as B12 and folic acid. Subjective Date/time seen: 10/11/22 15:54 Interval history: 62-year-old female admitted October 10 with orthostatic syncope. Had influenza a diagnosed in emergency department September 07. Lost about 10-15 lb since then. Was not eating or drinking well. Was on 3 antihypertensives. Blood pressure was low at presentation. Patient states that she only fainted when she stood up and she felt weak and shaking her legs will give out and she would not what happened wake up with bruising and injuries. She has had 7 such episodes. Since hospitalization she has been eating and drinking well and says no further episodes. She has occasional heart palpitations that her chronic. She takes metoprolol ER for that. She has no chest pain. No shortness of breath. No history of seizures. No incontinence with the episodes. She has chronic diarrhea 3 to 4 times a day last colonoscopy was in August 2022 and was unrevealing. She is treated symptomatically with loperamide. She has no blood in the stool or black tarry stools. 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 She has not been on steroids for over 10 years likely closer to 20 years. Review of Systems Review of Systems: All systems reviewed & are unremarkable except as noted in HPI and below Exam Narrative: HEENT: PERRL, sclerae efra
[2022-10-11 16:53] LABS: Glucose Point of Care 98 mg/dl (65-105)
[2022-10-11 16:59] LABS: IFOB Positive Control Positive; Immunochemical Fecal Occult Bl Positive (N)
[2022-10-11] MEDS: POTASSIUM CHLORIDE 20 MEQ TABLET.ER PO (17:19)
[2022-10-11] MEDS: MAGNESIUM OXIDE 400 MG TABLET PO (17:19)
[2022-10-11] MEDS: DULoxetine HCL 60 MG CAPSULE.DR PO (17:20)
[2022-10-11] MEDS: ACETAMINOPHEN 500 MG TABLET 1000 MG PO (18:46)
--- NOTE | 2022-10-11 19:22 | PCRCNOTE ---
Transport arrived, pt 34-RR, SP02 100%, OPTIFLOW 25L/ 100% Fi02.
[2022-10-11 19:27] LABS: IFOB Positive Control Positive; Immunochemical Fecal Occult Bl Positive (N)
[2022-10-11] MEDS: GABAPENTIN 300 MG CAPSULE PO (21:07)
[2022-10-11 21:14] LABS: Glucose Point of Care 108 mg/dl (65-105)
[2022-10-12] VITALS (12 sets, daily range): BP systolic 82–145; BP diastolic 51–69; PULSE 70–115; RESP 14–18; TEMP 36.4–37.1; O2SAT 95–100
[2022-10-12 06:34] LABS: Hematocrit 30.3 % (37.0-47.0); Hemoglobin 10.1 g/dL (12.0-15.0); Mean Corpuscular HGB Conc 33.3 g/dl (32-36); Mean Corpuscular Hemoglobin 30.5 pg (26-34); Mean Corpuscular Volume 91.5 fl (80-100); Platelet Count Result 181 k/mm3 (150-375); Red Blood Count 3.31 M/mm3 (4.2-5.4); Red Cell Distribution Width 14.2 % (11.5-14.5); White Blood Count 4.9 K/mm3 (4.5-10.0)
[2022-10-12 06:54] LABS: Albumin Level 3.5 g/dL (3.5-5.1); Anion Gap 5 mmol/L (8-16); Blood Urea Nitrogen 15 mg/dL (7-17); Calcium 8.7 mg/dL (8.4-10.2); Carbon Dioxide 24 mmol/L (22-30); Chloride 109 mmol/L (98-107); Estimated CRCL calculation 39 ml/min; Estimated Glomerular Filt Rate 45; Glucose 85 mg/dL (65-110); Magnesium 1.9 mg/dL (1.6-2.3); Phosphorus 2.9 mg/dL (2.5-4.5); Potassium 3.3 mmol/L (3.4-5.0); Sodium 138 mmol/L (137-145)
[2022-10-12 08:18] LABS: Cortisol Random 7.98 ug/dL
[2022-10-12 08:19] LABS: Glucose Point of Care 68 mg/dl (65-105)
[2022-10-12] MEDS: LEFLUNOMIDE 20 MG TABLET PO (08:31)
[2022-10-12] MEDS: MAGNESIUM OXIDE 400 MG TABLET PO ×2 (08:31→16:25)
[2022-10-12] MEDS: POTASSIUM CHLORIDE 20 MEQ TABLET.ER PO ×3 (08:31→16:25)
[2022-10-12] MEDS: PANTOPRAZOLE 40 MG TABLET PO (08:32)
[2022-10-12] MEDS: HYDROXYCHLOROQUINE SULFATE 200 MG TABLET PO (08:32)
[2022-10-12] MEDS: MULTIVITAMINS THERAPEUTIC TAB (*BKC) 1 TABLET PO (08:32)
[2022-10-12] MEDS: VITAMIN B COMPLEX CAPSULE 1 CAP PO (08:32)
[2022-10-12] MEDS: ATORVASTATIN 40 MG TABLET PO (08:32)
[2022-10-12] MEDS: DULoxetine HCL 60 MG CAPSULE.DR PO ×2 (08:47→16:25)
--- NOTE | 2022-10-12 09:32 | PM.IMPN ---
Progress Note: A&P Assessment and Plan (1) Recurrent syncope: Code(s): R55 - Syncope and collapse Status: Acute Assessment and Plan: Etiology unknown Possibly secondary to viral infection versus dehydration versus orthostatic blood pressure Continue daily orthostatic blood pressure readings I&Os review more than likely results are incorrect Patient hydrated patient's p.o. intake has improved has discontinue IV and hydration will encourage fluid intake Echo and ultrasound of the carotid arteries pending Her manager plan has been consulted (2) Hypomagnesemia: Code(s): E83.42 - Hypomagnesemia Status: Acute Assessment and Plan: Magnesium 1.0>1.9 Patient will more than likely have to go magnesium supplements Patient appears to be chronically low (3) Hypokalemia: Code(s): E87.6 - Hypokalemia Status: Acute Assessment and Plan: Potassium3.1>3.3 Continue supplements (4) Acute kidney injury: Code(s): N17.9 - Acute kidney failure, unspecified Status: Acute Assessment and Plan: Possibly secondary to dehydration versus viral illness Creatinine 1.70>1.20 baseline appears to be between1.20-1.30 Avoid nephrotoxins agents Will renal dose all medication (5) Acute anemia: Code(s): D64.9 - Anemia, unspecified Status: Acute Assessment and Plan: H&H10.9/33.3 , 10.1/ 30.0 baseline appears to be within normal limits Patient occult blood positive x2 Will consult GI after iron study has been completed No active bleeding noted Subjective Date/time seen: 10/12/22 09:32 Interval history: Patient is really concerned that she has had syncopal episode for approximately 1 month. Patient notes that she continues to experience dizziness and lightheadedness when she stands. Patient is also requesting to see her manager plan Dr. Sánchez. A consult has been placed. The patient denies SOB, CP, palpitation, extremity numbness, constipation, diarrhea, chills, or fever. Patient had a restless night she notes that she usually takes melatonin at home to assist with sleeping. Will add this medication to her regimen. Review of Systems Review of Systems: A 14 organ system Review of Systems was performed and pertinent positives included in the HPI, otherwise remaining ROS is negative. Exam Narrative: GENERAL: This is a well-nourished, well-developed patient, in no apparent distress. HEAD: normocephalic, atraumatic. EYES: PERRL. Sclera clear/white. Vision is grossly intact. EARS: External ears normal, auditory canals clear and without drainage, TMs normal without perforation. Hearing grossly intact. NOSE: External nose normal with no obvious nasal discharge, nares without redness, no rhinorrhea. THROAT: Mucous membranes moist, posterior pharynx clear. NECK: Neck supple, non-tender without lymphadenopathy, masses or thyromegaly. CARDIOVASCULAR: Regular rate and rhythm without murmurs, gallops, or rubs. RESPIRATORY: Clear to auscultation. Breath sounds equal bilaterally. No wheezes, rales, or rhonchi. GASTROINTESTINAL: Abdomen soft, non-tender, nondistended. Bowel sounds are active. No hepato-splenomegaly, or palpable masses. No guarding. SKIN: warm, intact with no suspicious lesions or rash, good texture and turgor. NEURO: awake, alert, and oriented to person, place and time. There were no obvious focal neurologic abnormalities. EXTREMITIES: Normal range of motion. No edema. No calf tenderness. Objective Data Vital Signs Vital Signs: Vital Signs - 24 hr 10/11/22 11:41 10/11/22 11:42 10/11/22 12:00 Temperature 96.8 F L 96.8 F L Pulse Rate 63 66 61 Respiratory Rate 16 16 Blood Pressure 104/70 90/65 L Pulse Oximetry 99 100 Oxygen Delivery 10/11/22 14:00 10/11/22 16:00 10/11/22 20:00 Temperature 96.5 F L Pulse Rate 61 65 Respiratory Rate 16 Blood Pressure 118/56 L Pulse Oximetry 96 Oxygen Delivery Room Air
[2022-10-12 11:28] LABS: Immature Reticulocyte Fraction 9.1 % (3.0-15.9); Reticulocyte Hemoglobin Conten 34.1 pg (28.2-35.7); Reticulocytes Absolute 0.06 B/L (32.2-175.7)
[2022-10-12 11:41] LABS: Bilirubin,Total 0.8 mg/dL (0.2-1.3)
[2022-10-12 11:48] LABS: Transferrin 273 mg/dL (206-381)
[2022-10-12 12:08] LABS: Glucose Point of Care 51 mg/dl (65-105)
[2022-10-12 12:13] LABS: Iron 128 ug/dL (37-170)
[2022-10-12 12:23] LABS: Percent Iron Saturation 35 % (20-50)
[2022-10-12 13:14] LABS: Toxigenic C. Diff NEGATIVE (NEGATIVE)
[2022-10-12] MEDS: GABAPENTIN 300 MG CAPSULE PO ×2 (14:05→21:27)
[2022-10-12 17:16] LABS: Glucose Point of Care 108 mg/dl (65-105)
[2022-10-12 20:02] LABS: Glucose Point of Care 133 mg/dl (65-105)
[2022-10-12] MEDS: MELATONIN 5 MG TABLET 10 MG PO (21:27)
[2022-10-13] VITALS (13 sets, daily range): BP systolic 90–141; BP diastolic 56–88; PULSE 86–113; RESP 14–18; TEMP 36.3–36.6; O2SAT 96–100; BMI 22.1
--- NOTE | 2022-10-13 | ECHO_ITS ---
Patient Info Name: Jennifer Martinez Age: 62 years : 1960 Gender: Female Ht: 65 in Wt: 133 lbs BSA: 1.67 m2 HR: 78 bpm BP: 123 / 56 mmHg Heart Rhythm: Sinus Rhythm Technical Quality: Good Exam Date: 10/13/2022 10:33 AM Exam Location: [facility] Exam Room: 314 Patient Status: Inpatient Admit Date: 10/12/2022 Staff Ordering Physician: Shubham Dorman Construction Pit Worker: Mahsa Zepeda RCS Attending Provider: Jesusita Davis Referring Physician: Dandy CONLEY; Exam Type: CA echo doppler color flow Study Info Complete two-dimensional, color flow and Doppler transthoracic echocardiogram is performed. Summary 1. Complete two-dimensional, color flow and Doppler transthoracic echocardiogram is performed. 2. Normal left ventricular size thickness and systolic contractility with grade 1 diastolic noncompliance. 3. Otherwise unremarkable echocardiogram. Left Ventricle Left ventricular chamber dimension is normal. Left ventricular systolic function is normal, estimated at 60-65%. The left ventricular diastolic function is grade I diastolic dysfunction. Right Ventricle Right ventricular chamber dimension is normal. Left Atria Left atrial chamber dimension is normal. Right Atria Right atrial chamber dimension is normal. Aortic Valve The aortic valve is normal. Pulmonic Valve The pulmonic valve is normal. Mitral Valve The mitral valve has normal leaflets. Tricuspid Valve The tricuspid valve leaflets are normal. Pericardium/Pleural The pericardium appears normal. Aorta The aortic root size at the sinus of Valsalva is normal. Left Ventricular Outflow Tract Name Value Normal LVOT 2D LVOT Diameter 2.0 cm LVOT Doppler LVOT Peak Gradient 7 mmHg LVOT Mean Gradient 4 mmHg LVOT VTI 21 cm LVOT VTI/AV VTI Ratio 0.7 LVOT Stroke Volume 66 ml LVOT CO 17.7 l/min LVOT CI 10.6 l/min/m2 Pulmonic Valve Name Value Normal PV Doppler PV Peak Gradient 3 mmHg Mitral Valve Name Value Normal MV Doppler MV Decel [place] 328 cm/s2 MV PHT 65 ms MV Area (PHT) 3.4 cm2 4.0-5.0 MV Diastolic Function MV E Peak Velocity 74 cm/s MV A Peak Velocity 100
[2022-10-13] MEDS: ALPRAZolam (*CRX) 0.5 MG TABLET PO ×2 (02:32→16:46)
[2022-10-13 06:39] LABS: Hematocrit 28.4 % (37.0-47.0); Hemoglobin 9.4 g/dL (12.0-15.0); Mean Corpuscular HGB Conc 33.1 g/dl (32-36); Mean Corpuscular Hemoglobin 30.5 pg (26-34); Mean Corpuscular Volume 92.2 fl (80-100); Mean Platelet Volume 10.4 fl (7.4-10.4); Platelet Count Result 181 k/mm3 (150-375); Red Blood Count 3.08 M/mm3 (4.2-5.4); Red Cell Distribution Width 14.3 % (11.5-14.5); White Blood Count 4.5 K/mm3 (4.5-10.0)
[2022-10-13 06:43] LABS: Albumin Level 3.3 g/dL (3.5-5.1); Anion Gap 4 mmol/L (8-16); Blood Urea Nitrogen 11 mg/dL (7-17); Calcium 8.9 mg/dL (8.4-10.2); Carbon Dioxide 24 mmol/L (22-30); Chloride 109 mmol/L (98-107); Estimated CRCL calculation 39 ml/min; Estimated Glomerular Filt Rate 45; Glucose 98 mg/dL (65-110); Magnesium 1.7 mg/dL (1.6-2.3); Phosphorus 2.7 mg/dL (2.5-4.5); Potassium 3.3 mmol/L (3.4-5.0); Sodium 137 mmol/L (137-145)
[2022-10-13] MEDS: GABAPENTIN 300 MG CAPSULE PO ×3 (06:59→22:13)
[2022-10-13 08:09] LABS: Glucose Point of Care 96 mg/dl (65-105)
[2022-10-13] MEDS: DULoxetine HCL 60 MG CAPSULE.DR PO ×2 (09:16→18:06)
[2022-10-13] MEDS: PANTOPRAZOLE 40 MG TABLET PO (09:16)
[2022-10-13] MEDS: POTASSIUM CHLORIDE 20 MEQ TABLET.ER PO ×3 (09:16→18:06)
[2022-10-13] MEDS: VITAMIN B COMPLEX CAPSULE 1 CAP PO (09:16)
[2022-10-13] MEDS: LEFLUNOMIDE 20 MG TABLET PO (09:17)
[2022-10-13] MEDS: ATORVASTATIN 40 MG TABLET PO (09:17)
[2022-10-13] MEDS: MAGNESIUM OXIDE 400 MG TABLET PO ×2 (09:17→18:06)
[2022-10-13] MEDS: HYDROXYCHLOROQUINE SULFATE 200 MG TABLET PO (09:17)
[2022-10-13] MEDS: MULTIVITAMINS THERAPEUTIC TAB (*BKC) 1 TABLET PO (09:17)
--- NOTE | 2022-10-13 10:27 | PM.CNCAR ---
Assessment and Plan Assessment and plan (1) Recurrent syncope: Code(s): R55 - Syncope and collapse Status: Acute Assessment and Plan: her syncopal episodes most surely related to orthostatic hypotension. Blood pressures dropping by 40 points systolic upon standing. The rule question is why she sore status. She has had chronic diarrhea for years. She had recent influenza And has felt very weak since that time. she is likely markedly dehydrated. this is also coupled with marked electrolyte imbalance with severe hypokalemia and hypomagnesemia on top of previous BP regimen. At this point I recommend that she hold all of her blood pressure medications. Will a 2D echocardiogram with Doppler. I will have IV fluid started and initiate normal saline at 100 cc Per hour. I do not think that this is arrhythmogenic will have her wear a surveillance system monitor GI should see her again to give an opinion recommend regarding her chronic diarrhea. (2) Hypomagnesemia: Code(s): E83.42 - Hypomagnesemia Status: Acute Assessment and Plan: Will replacement additional 2 g of IV magnesium x1 now (3) Hypokalemia: Code(s): E87.6 - Hypokalemia Status: Acute Assessment and Plan: KCL 40 mg p.o. x1 (4) Chronic diarrhea: Code(s): K52.9 - Noninfective gastroenteritis and colitis, unspecified Status: Acute Assessment and Plan: unexplained. GI to see (5) HTN (hypertension): Qualifiers: Hypertension type: essential hypertension Qualified Code(s): I10 - Essential (primary) hypertension Code(s): I10 - Essential (primary) hypertension Status: Acute Assessment and Plan: will hold (6) Tobacco use: Code(s): Z72.0 - Tobacco use Status: Acute (7) Nonischemic cardiomyopathy: Code(s): I42.8 - Other cardiomyopathies Status: Acute Assessment and Plan: last EF was 55% in the office. Will repeat a 2D echocardiogram with Doppler. History of Present Illness History of Present Illness Consult date/time: 10/13/22 10:27 Requesting physician: Shubham Dorman, CHECKER-C Consult reason: Other ( syncope) Reason For Visit: Recurrent Syncope,Hypokalemia,Hypomagnesemia Narrative: date of service 10/13/2022 Reason consultation syncope Requesting provider: matilde Dorman history: Patient is a 62-year-old female who has a history of not giving cardiomyopathy with echocardiogram most recent showing ejection fraction 55%. She also has a history of tobacco use, hypertension, rheumatoid arthritis, ANYA and PVCs. She also has hypertension hyperlipidemia and diabetes. She presented hospital with worsening episodes of syncope. Patient stated that she started to feel poorly in early September. She felt sick and had diarrhea as well as dry heaves. She felt a couple of times and eventually came to the hospital where she tested positive for influenza a. She was given some IV fluids and sent home. Since that time she has continued to feel very poorly. She has had diarrhea up to 60 times daily. She has felt very weak. She will became extremely dizzy and shaky prior to falling . She does not remember hitting the ground. She has lost 14 lb since September. She denies any chest pain but does have a headache. She has shortness of breath with activity. She does describe some paroxysmal nocturnal dyspnea. No edema. She has occasional palpitations which is not new or different. She has noticed today that if she is able to sit down quickly or even lay down she can abort her syncopal episodes. She only has these episodes upon standing. She has had diarrhea for about 3 years and reportedly has had GI evaluation without diagnosis. Review of Systems Review of Systems: All systems reviewed & are unremarkable except as noted in HPI and below Constitutional: Constitutional: Denies body ache(s), Reports fatigue, Reports lethargy and Report
[2022-10-13] MEDS: SODIUM CHLORIDE 0.9% IV 1,000 ML 100 ML IV CONT (11:57)
[2022-10-13] MEDS: POTASSIUM CHLORIDE 20 MEQ TABLET 40 MEQ PO (11:58)
[2022-10-13 12:03] LABS: Glucose Point of Care 105 mg/dl (65-105)
[2022-10-13] MEDS: MAGNESIUM SULF 2 GM/WATER 50ML 2 GM/50 ML BAG IVPB (12:34)
--- NOTE | 2022-10-13 12:59 | PM.IMPN ---
Progress Note: A&P Assessment and Plan (1) Recurrent syncope: Code(s): R55 - Syncope and collapse Status: Acute Assessment and Plan: Exact etiology is unknown, but Cardiology has opinion that it is most likely secondary to Orthostatic Hypotension and has recommended discontinuing her BP meds. Continue daily orthostatic blood pressure readings, she does appear to continue to be Orthostatic. IVF ordered per Cardiology. ECHO results pending. Carotid doppler demonstrates <50% bilaterally in the internal carotid arteries. (2) Hypomagnesemia: Code(s): E83.42 - Hypomagnesemia Status: Acute Assessment and Plan: Magnesium 1.0>1.9 Magnesium supplementation IV ordered. (3) Hypokalemia: Code(s): E87.6 - Hypokalemia Status: Acute Assessment and Plan: Potassium3.1>3.3 Continue supplements Still at 3.3, but is slowly rising. (4) Acute kidney injury: Code(s): N17.9 - Acute kidney failure, unspecified Status: Acute Assessment and Plan: Possibly secondary to dehydration versus viral illness Creatinine stable today at 1.2 with BUN of 11 and GFR of 45. Avoid nephrotoxins agents (5) Acute anemia: Code(s): D64.9 - Anemia, unspecified Status: Acute Assessment and Plan: H&H10.9/33.3 , 10.1/ 30.0 baseline appears to be within normal limits Patient occult blood positive x2 Will consult GI as she has had two positive occult blood. No active bleeding noted Time Spent With Patient Time with patient: 15 - 25 minutes Subjective Date/time seen: 10/13/22 12:45 This pt. was examined at the bedside today in interval assessment. She has complaints of continued weakness. She does not any longer feel that she is going to syncopize as she has previously. She reports that she has no headache but does still have some dizziness and lightheadedness. Movement and changing positions makes it worse. ECHO results are pending. Pt. has been evaluated by Cardiology and they have ordered fluid resuscitation and further monitoring along with Magnesium replacement. She has been evaluated by PT who recommends that she discharge to a SNF when she is ready, but she does not want to. She prefers to go home on discharge with her spouse. Review of Systems Review of Systems: All systems reviewed & are unremarkable except as noted in HPI and below Exam Const: General: comfortable and no acute distress Other: Appears frail HENMT: Mouth: Yes moist mucous membranes Eyes: General: appearance normal, both eyes and all related structures Sclera: sclerae normal Pupils: Equal, round and reactive pupils present EOM: EOMs intact bilaterally Neck: Neck: supple and no JVD Resp: Effort & Inspection: normal respiratory effort Auscultation: clear to auscultation bilaterally Cardio: Rate: regular rate Rhythm: regular rhythm Heart sounds: no gallops, no murmurs and no rubs GI: Inspection: non-distended GI Palp: Yes Soft to palpation and No Tenderness to palpation present (GI) Auscultation: normal bowel sounds Skin: General skin exam: normal color, no rashes or lesions noted and no erythema Lesions: no lesions noted Rashes: no rashes noted Wounds: no wounds Neuro: Speech: normal speech Motor exam (neuro): Abnormal motor strength present (3/5 throughout all four extremities.) Sensory Exam: normal sensation Extrem: General: normal to inspection, no edema and no pedal edema Psych: Mental Status: mental status grossly normal Affect: normal affect Objective Data Vital Signs Vital Signs: Vital Signs - 24 hr 10/12/22 15:00 10/12/22 15:00 10/12/22 15:03 Temperature 98.2 F 98.2 F 98.2 F Pulse Rate 85 85 88 Respiratory Rate 18 18 18 Blood Pressure 145/66 H 145/66 H 125/62 Pulse Oximetry 98 98 98 10/12/22 15:24 10/12/22 16:00 10/12/22 19:25 Temperature 98.2 F Pulse Rate 106 H 104 H 96 Respiratory Rate 18 Blood Pressure 83/54 L 126/69 Puls
--- NOTE | 2022-10-13 15:13 | PCPTNOTE ---
The patient treatment was not able to be completed this afternoon. Attempted to see patient 2x this afternoon and patient sleeping soundly. Will plan to continue treatment per plan of care.
[2022-10-13 17:26] LABS: Glucose Point of Care 99 mg/dl (65-105)
[2022-10-13 21:01] LABS: Glucose Point of Care 111 mg/dl (65-105)
[2022-10-13] MEDS: MELATONIN 5 MG TABLET 10 MG PO (21:20)
[2022-10-14] VITALS (15 sets, daily range): BP systolic 116–149; BP diastolic 67–99; PULSE 78–98; RESP 18–20; TEMP 36.3–36.8; O2SAT 93–100
[2022-10-14] MEDS: SODIUM CHLORIDE 0.9% IV 1,000 ML 100 ML IV CONT ×2 (00:15→12:04)
[2022-10-14] MEDS: ALPRAZolam (*CRX) 0.5 MG TABLET PO ×3 (00:15→21:25)
[2022-10-14] MEDS: GABAPENTIN 300 MG CAPSULE PO ×3 (06:08→21:26)
[2022-10-14 07:33] LABS: Hematocrit 27.4 % (37.0-47.0); Hemoglobin 9.1 g/dL (12.0-15.0); Mean Corpuscular HGB Conc 33.2 g/dl (32-36); Mean Corpuscular Hemoglobin 30.8 pg (26-34); Mean Corpuscular Volume 92.9 fl (80-100); Mean Platelet Volume 9.9 fl (7.4-10.4); Platelet Count Result 163 k/mm3 (150-375); Red Blood Count 2.95 M/mm3 (4.2-5.4); Red Cell Distribution Width 14.6 % (11.5-14.5)
[2022-10-14 07:45] LABS: Alanine Aminotransferase 23 U/L (6-35); Alkaline Phosphatase 85 U/L (38-126); Anion Gap 1 mmol/L (8-16); Aspartate Amino Transferase 31 U/L (14-36); Bilirubin,Total 0.7 mg/dL (0.2-1.3); Blood Urea Nitrogen 8 mg/dL (7-17); Calcium 8.4 mg/dL (8.4-10.2); Carbon Dioxide 23 mmol/L (22-30); Chloride 111 mmol/L (98-107); Estimated CRCL calculation 51 ml/min; Estimated Glomerular Filt Rate > 60; Glucose 81 mg/dL (65-110); Magnesium 1.9 mg/dL (1.6-2.3); Phosphorus 2.7 mg/dL (2.5-4.5); Potassium 3.4 mmol/L (3.4-5.0); Sodium 135 mmol/L (137-145)
[2022-10-14 08:23] LABS: Glucose Point of Care 83 mg/dl (65-105)
[2022-10-14] MEDS: VITAMIN B COMPLEX CAPSULE 1 CAP PO (09:45)
[2022-10-14] MEDS: DULoxetine HCL 60 MG CAPSULE.DR PO ×2 (09:45→17:21)
[2022-10-14] MEDS: LEFLUNOMIDE 20 MG TABLET PO (09:45)
[2022-10-14] MEDS: POTASSIUM CHLORIDE 20 MEQ TABLET.ER PO ×3 (09:46→17:20)
[2022-10-14] MEDS: MAGNESIUM OXIDE 400 MG TABLET PO ×2 (09:46→17:21)
[2022-10-14] MEDS: ATORVASTATIN 40 MG TABLET PO (09:46)
[2022-10-14] MEDS: MULTIVITAMINS THERAPEUTIC TAB (*BKC) 1 TABLET PO (09:46)
[2022-10-14] MEDS: PANTOPRAZOLE 40 MG TABLET PO (09:46)
[2022-10-14] MEDS: HYDROXYCHLOROQUINE SULFATE 200 MG TABLET PO (09:46)
--- NOTE | 2022-10-14 10:01 | PM.PNCARD ---
Progress Note: A&P Assessment and Plan (1) Recurrent syncope: Code(s): R55 - Syncope and collapse Status: Acute Assessment and Plan: her syncopal episodes most surely related to orthostatic hypotension. Blood pressures dropping by 40 points systolic upon standing. She is still orthostatic by vitals from yesterday. Awaiting orthostatic BP today. Will start midodrine 2.5 mg p.o. t.i.d. Continue IV fluids. Hold BP meds. Echocardiogram showed preserved ejection fraction 60-65% and no valvular pathology. GI should see her again to give an opinion recommend regarding her chronic diarrhea. (2) Hypomagnesemia: Code(s): E83.42 - Hypomagnesemia Status: Acute Assessment and Plan: Electrolytes are better (3) Hypokalemia: Code(s): E87.6 - Hypokalemia Status: Acute Assessment and Plan: Still hypokalemic but better. Will again replace with KCL 40 mg p.o. x1 (4) Chronic diarrhea: Code(s): K52.9 - Noninfective gastroenteritis and colitis, unspecified Status: Acute Assessment and Plan: unexplained. GI to see (5) HTN (hypertension): Qualifiers: Hypertension type: essential hypertension Qualified Code(s): I10 - Essential (primary) hypertension Code(s): I10 - Essential (primary) hypertension Status: Acute Assessment and Plan: will hold BP meds (6) Tobacco use: Code(s): Z72.0 - Tobacco use Status: Acute (7) Nonischemic cardiomyopathy: Code(s): I42.8 - Other cardiomyopathies Status: Acute Assessment and Plan: Echocardiogram from yesterday showed preserved ejection fraction 60 65%. No valvular pathology Subjective Date/time seen: 10/14/22 10:01 Interval history: 62-year-old admitted for recurrent syncope Date of service 10/14/2022: She denies any chest pain, shortness of breath. Has not been up much to evaluate for dizziness. Review of Systems Review of Systems: All systems reviewed & are unremarkable except as noted in HPI and below Constitutional: Constitutional: Denies body ache(s), Denies excessive sweating, Reports fatigue, Reports lethargy and Reports weakness Eyes: Eyes: Denies blurry vision ENT: Reports Normal hearing present Cardiovascular: Cardiovascular: Denies chest pain, Denies pedal edema and Reports dyspnea Respiratory: Respiratory: Reports dyspnea Gastrointestinal: Gastrointestinal: Denies abdominal pain and Reports diarrhea Genitourinary: Genitourinary: Denies hematuria Musculoskeletal: Musculoskeletal: Denies back pain and Denies arthralgias Integumentary/Breasts: Skin/Breast: Denies dry skin Neurologic: Reports Normal hearing present, Denies Abnormal speech present, Denies behavioral changes and Reports weakness Psychiatric: Psychiatric: Denies anxiety and Denies behavioral changes Endocrine: Endocrine: Denies excessive sweating and Reports fatigue Hematologic/Lymphatic: Hematologic/Lymphatic: Denies easy bleeding Allergic/Immunologic: Allergic/Immunologic: Denies GI upset with certain foods Exam Narrative: Awake alert and oriented appears stated age Const: General: comfortable and no acute distress HENMT: Face/Nose/Sinus: Normal nares present Mouth: Yes moist mucous membranes Eyes: Sclera: sclerae normal Neck: Neck: supple Carotids: no bruits Chest: Other: no reproducible chest wall pain to palpation Resp: Effort & Inspection: normal respiratory effort Auscultation: clear to auscultation bilaterally Cardio: Rate: regular rate Rhythm: regular rhythm Heart sounds: no murmurs GI: Inspection: non-distended Auscultation: normal bowel sounds Skin: General skin exam: normal color and no rashes or lesions noted Neuro: Cranial nerves: Yes Normal hearing present Speech: normal speech and No Abnormal speech present Motor exam (neuro): Normal motor muscle tone present throughout Sensory Exam: normal sensation Extr
[2022-10-14] MEDS: POTASSIUM CHLORIDE 20 MEQ TABLET 40 MEQ PO (12:05)
[2022-10-14 12:13] LABS: Glucose Point of Care 85 mg/dl (65-105)
[2022-10-14] MEDS: MIDODRINE HCL 2.5 MG TABLET PO ×2 (13:27→17:21)
--- NOTE | 2022-10-14 15:19 | PM.IMPN ---
Progress Note: A&P Assessment and Plan (1) Recurrent syncope: Code(s): R55 - Syncope and collapse Status: Acute Assessment and Plan: (1) Recurrent syncope: ?Code(s): R55 - Syncope and collapse ?Status:?Acute ?Assessment and Plan: Exact etiology is unknown, but Cardiology has opinion that it is most likely secondary to Orthostatic Hypotension and has recommended discontinuing her BP meds. Continue daily orthostatic blood pressure readings, she does appear to continue to be Orthostatic. IVF ordered per Cardiology. ECHO results pending. Carotid doppler demonstrates <50% bilaterally in the internal carotid arteries. 10/14/2022 interval history: patient with some recurrent syncopal episode and collapse seen by Cardiology suspect orthostatic hypotension recommended to hold blood pressure medication and started the patient on midodrine, patient cardiac echo is essentially normal with preserved LV function ejection fraction of 65% and no valvular pathology, also stats she has several loose BM daily causing her dehydration and hypotension and syncope, patient will be seen by GI and further recommendation to follow. (2) Hypomagnesemia: Code(s): E83.42 - Hypomagnesemia Status: Acute Assessment and Plan: will monitor and supplement (3) Hypokalemia: Code(s): E87.6 - Hypokalemia Status: Acute Assessment and Plan: will monitor and supplement (4) Acute kidney injury: Code(s): N17.9 - Acute kidney failure, unspecified Status: Acute Assessment and Plan: most likely secondary dehydration will gently hydrate the patient and monitor Subjective Date/time seen: 10/14/22 15:19 (1) Recurrent syncope: ?Code(s): R55 - Syncope and collapse ?Status:?Acute ?Assessment and Plan: Exact etiology is unknown, but Cardiology has opinion that it is most likely secondary to Orthostatic Hypotension and has recommended discontinuing her BP meds. Continue daily orthostatic blood pressure readings, she does appear to continue to be Orthostatic. IVF ordered per Cardiology. ECHO results pending. Carotid doppler demonstrates <50% bilaterally in the internal carotid arteries. 10/14/2022 interval history: patient with some recurrent syncopal episode and collapse seen by Cardiology suspect orthostatic hypotension recommended to hold blood pressure medication and started the patient on midodrine, patient cardiac echo is essentially normal with preserved LV function ejection fraction of 65% and no valvular pathology, also stats she has several loose BM daily causing her dehydration and hypotension and syncope, patient will be seen by GI and further recommendation to follow. Review of Systems Review of Systems: All systems reviewed & are unremarkable except as noted in HPI and below Constitutional: Constitutional: Denies body ache(s), Denies excessive sweating, Reports fatigue, Reports lethargy and Reports weakness Eyes: Eyes: Denies blurry vision ENT: Reports Normal hearing present Cardiovascular: Cardiovascular: Denies chest pain, Denies pedal edema and Reports dyspnea Respiratory: Respiratory: Reports dyspnea Gastrointestinal: Gastrointestinal: Denies abdominal pain and Reports diarrhea Genitourinary: Genitourinary: Denies hematuria Musculoskeletal: Musculoskeletal: Denies back pain and Denies arthralgias Integumentary/Breasts: Skin/Breast: Denies dry skin Neurologic: Reports Normal hearing present, Denies Abnormal speech present, Denies behavioral changes and Reports weakness Psychiatric: Psychiatric: Denies anxiety and Denies behavioral changes Endocrine: Endocrine: Denies excessive sweating and Reports fatigue Hematologic/Lymphatic: Hematologic/Lymphatic: Denies easy bleeding Allergic/Immunologic: Allergic/Immunologic: Denies GI upset with certain foods Exam Narrative: Patient is comfortable, NAD HEENT: eyes are clear and none ict
--- NOTE | 2022-10-14 16:07 | WPDGICN ---
Assessment and Plan Assessment and plan (1) Chronic diarrhea: Code(s): K52.9 - Noninfective gastroenteritis and colitis, unspecified Status: Acute Assessment and Plan: had colonoscopy last year, confirmed dx of lymphocytic colitis (she also has other autoimmune condition RA and she is on immunosupressive treatment) will start budesonide, ok to use imodium prn fobt + but no need to repeat another colonoscopy (2) Microscopic colitis: Code(s): K52.839 - Microscopic colitis, unspecified Status: Acute Assessment and Plan: start budesonide (3) Recurrent syncope: Code(s): R55 - Syncope and collapse Status: Acute Assessment and Plan: orthostasis, BP med on hold, also h/o cardiomyopathy and probably aggravated by diarrhea (4) Anemia: Qualifiers: Anemia type: unspecified type Qualified Code(s): D64.9 - Anemia, unspecified Code(s): D64.9 - Anemia, unspecified Status: Acute Assessment and Plan: monitor had recent scopes denies overt gib (5) Nonischemic cardiomyopathy: Code(s): I42.8 - Other cardiomyopathies Status: Acute (6) Occult blood in stools: Code(s): R19.5 - Other fecal abnormalities Status: Acute (7) Rheumatoid arthritis involving multiple sites with positive rheumatoid factor: Code(s): M05.79 - Rheumatoid arthritis with rheumatoid factor of multiple sites without organ or systems involvement Status: Acute GI Consult Note Consult date/time: 10/14/22 16:07 Reason for consult: diarrhea, FOBT + HPI: Jennifer Martinez is a 62 year old female with h/o RA and SLE, she is not longer on rituxamab because weight loss 2018, now on leflunamide and plaquenil.she had EGD 2019 that showed gastritis, normal duodenal bx, random colon bx with mild colitis and had 2cm TA polyp remover over submucosal injection with dysplasia repeat scopes again 06/2022 showed lymphocytic colitis, small colon polyp removed. She has chronic diarrhea for over 2 years and occasionally accidents, previously tried budesonide. She is here with persistent diarrhea 7-8 times a day, progressive weakness and multiple falls since she had the flu early September, also few occasions with syncope probably hypotensive related, evaluated by cardiology because non ischemic cardiomyopathy (EF 55%). Review of Systems Review of Systems: All systems reviewed & are unremarkable except as noted in HPI and below Constitutional: Constitutional: Denies body ache(s), Denies excessive sweating, Reports fatigue, Reports lethargy and Reports weakness Eyes: Eyes: Denies blurry vision ENT: Reports Normal hearing present Cardiovascular: Cardiovascular: Denies chest pain, Denies pedal edema and Reports dyspnea Respiratory: Respiratory: Reports dyspnea Gastrointestinal: Gastrointestinal: Denies abdominal pain and Reports diarrhea Genitourinary: Genitourinary: Denies hematuria Musculoskeletal: Musculoskeletal: Denies back pain and Denies arthralgias Integumentary/Breasts: Skin/Breast: Denies dry skin Neurologic: Reports Normal hearing present, Denies Abnormal speech present, Denies behavioral changes and Reports weakness Psychiatric: Psychiatric: Denies anxiety and Denies behavioral changes Endocrine: Endocrine: Denies excessive sweating and Reports fatigue Hematologic/Lymphatic: Hematologic/Lymphatic: Denies easy bleeding Allergic/Immunologic: Allergic/Immunologic: Denies GI upset with certain foods PMFSH Past Medical History Medical History (Updated 10/14/22 @ 16:13 by Felix Easley MD) Anxiety Arthritis Batres's esophagus Diabetic neuropathy Diastolic dysfunction Echocardiogram 11/2020: Normal left ventricular systolic function, mild concentric left ventricular hypertrophy, impaired diastolic relaxation grade 1, EF of 55-60, mild tricuspid regurgitation Essential (primary) hypertension Essential hypertension Gastroesophageal
[2022-10-14 16:56] LABS: Glucose Point of Care 95 mg/dl (65-105)
[2022-10-14] MEDS: MELATONIN 5 MG TABLET 10 MG PO (21:26)
[2022-10-15] VITALS (14 sets, daily range): BP systolic 115–160; BP diastolic 49–89; PULSE 65–95; RESP 16–18; TEMP 35.8–36.7; O2SAT 95–99
[2022-10-15 01:17] LABS: Glucose Point of Care 110 mg/dl (65-105)
[2022-10-15 06:29] LABS: Hematocrit 28.5 % (37.0-47.0); Hemoglobin 9.1 g/dL (12.0-15.0); Mean Corpuscular HGB Conc 31.9 g/dl (32-36); Mean Corpuscular Volume 96.9 fl (80-100); Mean Platelet Volume 10.1 fl (7.4-10.4); Platelet Count Result 162 k/mm3 (150-375); Red Blood Count 2.94 M/mm3 (4.2-5.4); Red Cell Distribution Width 14.7 % (11.5-14.5); White Blood Count 3.4 K/mm3 (4.5-10.0)
[2022-10-15] MEDS: GABAPENTIN 300 MG CAPSULE PO ×3 (06:45→21:37)
[2022-10-15 06:56] LABS: Anion Gap 0 mmol/L (8-16); Blood Urea Nitrogen 6 mg/dL (7-17); Calcium 8.9 mg/dL (8.4-10.2); Carbon Dioxide 24 mmol/L (22-30); Chloride 112 mmol/L (98-107); Estimated CRCL calculation 51 ml/min; Estimated Glomerular Filt Rate > 60; Glucose 84 mg/dL (65-110); Magnesium 1.6 mg/dL (1.6-2.3); Phosphorus 3.1 mg/dL (2.5-4.5); Potassium 3.6 mmol/L (3.4-5.0); Sodium 136 mmol/L (137-145)
[2022-10-15 07:48] LABS: Glucose Point of Care 92 mg/dl (65-105)
[2022-10-15] MEDS: LEFLUNOMIDE 20 MG TABLET PO (08:33)
[2022-10-15] MEDS: MAGNESIUM OXIDE 400 MG TABLET PO ×2 (08:33→16:57)
[2022-10-15] MEDS: HYDROXYCHLOROQUINE SULFATE 200 MG TABLET PO (08:33)
[2022-10-15] MEDS: BUDESONIDE 3 MG CAP.SR.24H 6 MG PO (08:33)
[2022-10-15] MEDS: DULoxetine HCL 60 MG CAPSULE.DR PO ×2 (08:34→16:57)
[2022-10-15] MEDS: PANTOPRAZOLE 40 MG TABLET PO (08:34)
[2022-10-15] MEDS: ATORVASTATIN 40 MG TABLET PO (08:34)
[2022-10-15] MEDS: MIDODRINE HCL 2.5 MG TABLET PO ×2 (08:34→16:57)
[2022-10-15] MEDS: VITAMIN B COMPLEX CAPSULE 1 CAP PO (08:34)
[2022-10-15] MEDS: POTASSIUM CHLORIDE 20 MEQ TABLET.ER PO ×3 (08:34→16:57)
[2022-10-15] MEDS: MULTIVITAMINS THERAPEUTIC TAB (*BKC) 1 TABLET PO (08:35)
--- NOTE | 2022-10-15 09:13 | PM.PNCARD ---
Progress Note: A&P Assessment and Plan (1) Recurrent syncope: Code(s): R55 - Syncope and collapse Status: Acute Assessment and Plan: her syncopal episodes most surely related to orthostatic hypotension. Blood pressures dropping by 40 points systolic upon standing. blood pressures are better. Will change midodrine to b.i.d.. I will also DC IV fluids. holding BP meds for now. If blood pressure medication is needed, would avoid HCTZ. Echocardiogram showed preserved ejection fraction 60-65% and no valvular pathology. GI should see her again to give an opinion recommend regarding her chronic diarrhea. (2) Hypomagnesemia: Code(s): E83.42 - Hypomagnesemia Status: Acute Assessment and Plan: Magnesium is low today. Will give 3 g IV x1 (3) Hypokalemia: Code(s): E87.6 - Hypokalemia Status: Acute Assessment and Plan: Still hypokalemic but better. Will again replace with KCL 40 mg p.o. x1 (4) Chronic diarrhea: Code(s): K52.9 - Noninfective gastroenteritis and colitis, unspecified Status: Acute Assessment and Plan: unexplained. GI to see (5) HTN (hypertension): Qualifiers: Hypertension type: essential hypertension Qualified Code(s): I10 - Essential (primary) hypertension Code(s): I10 - Essential (primary) hypertension Status: Acute Assessment and Plan: will hold BP meds (6) Tobacco use: Code(s): Z72.0 - Tobacco use Status: Acute (7) Nonischemic cardiomyopathy: Code(s): I42.8 - Other cardiomyopathies Status: Acute Assessment and Plan: Echocardiogram from yesterday showed preserved ejection fraction 60 65%. No valvular pathology Subjective Date/time seen: 10/15/22 09:13 Interval history: 62-year-old admitted for recurrent syncope Date of service 10/14/2022: She denies any chest pain, shortness of breath. Has not been up much to evaluate for dizziness. Date of service 10/15/2022: She is feeling better. Less dizzy upon standing. Blood pressure is better also. No chest pain or shortness of breath Review of Systems Review of Systems: All systems reviewed & are unremarkable except as noted in HPI and below Constitutional: Constitutional: Denies body ache(s), Denies excessive sweating, Reports fatigue, Reports lethargy and Reports weakness Eyes: Eyes: Denies blurry vision ENT: Reports Normal hearing present Cardiovascular: Cardiovascular: Denies chest pain, Denies pedal edema and Reports dyspnea Respiratory: Respiratory: Reports dyspnea Gastrointestinal: Gastrointestinal: Denies abdominal pain and Reports diarrhea Genitourinary: Genitourinary: Denies hematuria Musculoskeletal: Musculoskeletal: Denies back pain and Denies arthralgias Integumentary/Breasts: Skin/Breast: Denies dry skin Neurologic: Reports Normal hearing present, Denies Abnormal speech present, Denies behavioral changes and Reports weakness Psychiatric: Psychiatric: Denies anxiety and Denies behavioral changes Endocrine: Endocrine: Denies excessive sweating and Reports fatigue Hematologic/Lymphatic: Hematologic/Lymphatic: Denies easy bleeding Allergic/Immunologic: Allergic/Immunologic: Denies GI upset with certain foods Exam Narrative: Awake alert and oriented appears stated age Const: General: comfortable and no acute distress HENMT: Face/Nose/Sinus: Normal nares present Mouth: Yes moist mucous membranes Eyes: Sclera: sclerae normal Neck: Neck: supple Carotids: no bruits Chest: Other: no reproducible chest wall pain to palpation Resp: Effort & Inspection: normal respiratory effort Auscultation: clear to auscultation bilaterally Cardio: Rate: regular rate Rhythm: regular rhythm Heart sounds: no murmurs GI: Inspection: non-distended Auscultation: normal bowel sounds Skin: General skin exam: normal color and no rashes or lesions noted Neuro: Cranial
[2022-10-15] MEDS: MAGNESIUM SULFATE 3GM/D5W100ML 3 GM/100 ML BAG IVPB (11:24)
[2022-10-15] MEDS: POTASSIUM CHLORIDE 20 MEQ TABLET 40 MEQ PO (11:26)
--- NOTE | 2022-10-15 11:26 | PM.IMPN ---
Progress Note: A&P Assessment and Plan (1) Recurrent syncope: Code(s): R55 - Syncope and collapse Status: Acute Assessment and Plan: Exact etiology is unknown, but Cardiology has opinion that it is most likely secondary to Orthostatic Hypotension and has recommended discontinuing her BP meds. Continue daily orthostatic blood pressure readings, she does appear to continue to be Orthostatic. Midodrine ECHO noted (2) Hypomagnesemia: Code(s): E83.42 - Hypomagnesemia Status: Acute Assessment and Plan: Magnesium 1.0>1.9 Magnesium supplementation IV ordered. (3) Hypokalemia: Code(s): E87.6 - Hypokalemia Status: Acute Assessment and Plan: Potassium3.1>3.3 Continue supplements Still at 3.3, but is slowly rising. (4) Acute kidney injury: Code(s): N17.9 - Acute kidney failure, unspecified Status: Acute Assessment and Plan: Possibly secondary to dehydration versus viral illness Creatinine stable today at 1.2 with BUN of 11 and GFR of 45. Avoid nephrotoxins agents (5) Acute anemia: Code(s): D64.9 - Anemia, unspecified Status: Acute Assessment and Plan: H&H10.9/33.3 , 10.1/ 30.0 baseline appears to be within normal limits Patient occult blood positive x2 Will consult GI as she has had two positive occult blood. No active bleeding noted Subjective Date/time seen: 10/15/22 11:26 Blood pressures have improved. Patient is relatively asymptomatic. Exam Narrative: Patient is comfortable, NAD HEENT: eyes are clear and none icteric LUNGS: normal respiratory effort ABD: Lower extremities: no edema SKIN: nonjaundiced Neuro: grossly intact. Const: General: comfortable and no acute distress Other: Appears frail HENMT: Mouth: Yes moist mucous membranes Eyes: General: appearance normal, both eyes and all related structures Sclera: sclerae normal Pupils: Equal, round and reactive pupils present EOM: EOMs intact bilaterally Neck: Neck: supple and no JVD Resp: Effort & Inspection: normal respiratory effort Auscultation: clear to auscultation bilaterally Cardio: Rate: regular rate Rhythm: regular rhythm Heart sounds: no gallops, no murmurs and no rubs GI: Inspection: non-distended Auscultation: normal bowel sounds Skin: General skin exam: normal color, no rashes or lesions noted, no erythema, No lesion and No rashes Lesions: no lesions noted Rashes: no rashes noted Wounds: no wounds Neuro: Cranial nerves: Yes Equal, round and reactive pupils present and Yes Normal hearing present Speech: normal speech and No Abnormal speech present Motor exam (neuro): Abnormal motor strength present (3/5 throughout all four extremities.) Sensory Exam: normal sensation Extrem: General: normal to inspection, no edema and no pedal edema Psych: Mental Status: mental status grossly normal Affect: normal affect Objective Data Vital Signs Vital Signs: Vital Signs - 24 hr 10/14/22 12:00 10/14/22 13:48 10/14/22 16:00 Temperature 97.6 F Pulse Rate 91 84 78 Respiratory Rate 18 Blood Pressure 117/73 Pulse Oximetry 99 Oxygen Delivery 10/14/22 15:00 10/14/22 22:00 10/14/22 22:05 Temperature 97.3 F L Pulse Rate 83 80 Respiratory Rate 18 18 Blood Pressure 144/67 H 138/81 149/79 H Pulse Oximetry 98 100 Oxygen Delivery 10/14/22 22:10 10/14/22 21:26 10/14/22 20:00 Temperature Pulse Rate 98 81 Respiratory Rate 20 Blood Pressure 135/99 H Pulse Oximetry 99 Oxygen Delivery Room Air 10/15/22 00:00 10/15/22 04:00 10/15/22 06:00 Temperature 98.1 F Pulse Rate 80 65 78 Respiratory Rate 18 Blood Pressure 143/76 H Pulse Oximetry 95 Oxygen Delivery 10/15/22 08:26 10/15/22 08:27 10/15/22 08:27 Temperature 96.5 F L Pulse Rate 78 Respiratory Rate 18 Blood Pressure 155/82 H 155/84 H 142/85 H Pulse Oximetry 99 Oxygen Delivery 10/15/22 10:54
[2022-10-15 11:31] LABS: Glucose Point of Care 140 mg/dl (65-105)
--- NOTE | 2022-10-15 15:59 | WPDGIPROGNO ---
Progress Note: A&P Assessment and Plan (1) Microscopic colitis: Code(s): K52.839 - Microscopic colitis, unspecified Status: Acute Assessment and Plan: denies diarrhea today and feeling better will need to continue using budesonide- will send prescription to her pharmacy she can follow-up office in 6-8 weeks (2) Chronic diarrhea: Code(s): K52.9 - Noninfective gastroenteritis and colitis, unspecified Status: Acute Assessment and Plan: probably from lymphocytic colitis, on treatment now (3) Recurrent syncope: Code(s): R55 - Syncope and collapse Status: Acute Assessment and Plan: no more episodes (4) Nonischemic cardiomyopathy: Code(s): I42.8 - Other cardiomyopathies Status: Acute (5) Occult blood in stools: Code(s): R19.5 - Other fecal abnormalities Status: Acute Assessment and Plan: had recent colonoscopy, no need to repeat another one Subjective Date/time seen: 10/15/22 15:59 Interval history: much better today, only one BM- yesterday started on budesonide, she is feeling much better Review of Systems Review of Systems: All systems reviewed & are unremarkable except as noted in HPI and below Exam Const: General: comfortable and no acute distress HENMT: Face/Nose/Sinus: Normal nares present Eyes: General: appearance normal, both eyes and all related structures Neck: Neck: no JVD Resp: Auscultation: clear to auscultation bilaterally Cardio: Rate: regular rate Rhythm: regular rhythm GI: Inspection: non-distended GI Palp: Yes Soft to palpation and No Tenderness to palpation present (GI) Auscultation: normal bowel sounds Skin: General skin exam: normal color Neuro: Speech: normal speech Extrem: General: normal to inspection Psych: Mental Status: mental status grossly normal Objective Data Vital Signs Vital Signs: Vital Signs - 24 hr 10/14/22 16:00 10/14/22 22:00 10/14/22 22:05 Temperature 97.3 F L Pulse Rate 78 83 80 Respiratory Rate 18 18 Blood Pressure 138/81 149/79 H Pulse Oximetry 98 100 Oxygen Delivery 10/14/22 22:10 10/14/22 21:26 10/14/22 20:00 Temperature Pulse Rate 98 81 Respiratory Rate 20 Blood Pressure 135/99 H Pulse Oximetry 99 Oxygen Delivery Room Air 10/15/22 00:00 10/15/22 04:00 10/15/22 06:00 Temperature 98.1 F Pulse Rate 80 65 78 Respiratory Rate 18 Blood Pressure 143/76 H Pulse Oximetry 95 Oxygen Delivery 10/15/22 08:26 10/15/22 08:27 10/15/22 08:27 Temperature 96.5 F L Pulse Rate 78 Respiratory Rate 18 Blood Pressure 155/82 H 155/84 H 142/85 H Pulse Oximetry 99 Oxygen Delivery 10/15/22 10:54 10/15/22 13:00 10/15/22 13:29 Temperature 96.7 F L 96.7 F L Pulse Rate 95 95 Respiratory Rate 18 18 Blood Pressure 122/89 122/89 Pulse Oximetry 97 98 98 Oxygen Delivery Room Air 10/15/22 13:28 Temperature Pulse Rate Respiratory Rate Blood Pressure 144/79 H Pulse Oximetry Oxygen Delivery Intake/Output Intake/Output: Intake & Output 10/12/22 10/13/22 10/14/22 10/15/22 23:59 23:59 23:59 23:59 Intake Total 1170 2480 6305 1230 Output Total 450 Balance 1170 2030 6305 1230 Meds/Results Medications: Active Medications Generic Name Dose Route Start Last Admin Trade Name Freq PRN Reason Stop Dose Admin Acetaminophen 1,000 mg 10/11/22 15:26 10/11/22 18:46 Acetaminophen 500 Mg Tablet PO 1,000 mg TID PRN Administration Pain Alprazolam 0.5 mg 10/13/22 02:07 10/14/22 21:25 Alprazolam (*Crx) 0.5 Mg Tablet PO 0.5 mg TID PRN Administration Anxiety Atorvastatin Calcium 40 mg 10/12/22 09:00 10/15/22 08:34 Atorvastatin 40 Mg Tablet PO 40 mg DAILY SMITH Administration Budesonide 6 mg 10/15/22 09:00 10/15/22 08:33 Budesonide 3 Mg Cap.Sr.24h PO 6 mg QAM SMITH Administration Duloxetine HCl 60 mg 10/11/22 17:00 10/15/22 08:34 Duloxet
[2022-10-15 16:44] LABS: Glucose Point of Care 87 mg/dl (65-105)
[2022-10-15 21:01] LABS: Glucose Point of Care 120 mg/dl (65-105)
[2022-10-15] MEDS: MELATONIN 5 MG TABLET 10 MG PO (21:38)
[2022-10-15] MEDS: ALPRAZolam (*CRX) 0.5 MG TABLET PO (23:35)
[2022-10-16] VITALS: PULSE 87; O2SAT 98
[2022-10-16 05:03] VITALS: PULSE 85; O2SAT 96
[2022-10-16] MEDS: GABAPENTIN 300 MG CAPSULE PO (05:53)
[2022-10-16 06:00] VITALS: BP 185/88; PULSE 84; RESP 18; TEMP 35.9; O2SAT 99
[2022-10-16 06:16] LABS: Hematocrit 28.9 % (37.0-47.0); Hemoglobin 9.6 g/dL (12.0-15.0); Mean Corpuscular HGB Conc 33.2 g/dl (32-36); Mean Corpuscular Hemoglobin 30.6 pg (26-34); Platelet Count Result 181 k/mm3 (150-375); Red Blood Count 3.14 M/mm3 (4.2-5.4); Red Cell Distribution Width 14.7 % (11.5-14.5); White Blood Count 3.9 K/mm3 (4.5-10.0)
[2022-10-16 06:31] LABS: Albumin Level 3.3 g/dL (3.5-5.1); Anion Gap 3 mmol/L (8-16); Blood Urea Nitrogen 6 mg/dL (7-17); Calcium 9.1 mg/dL (8.4-10.2); Carbon Dioxide 26 mmol/L (22-30); Chloride 108 mmol/L (98-107); Estimated CRCL calculation 46 ml/min; Estimated Glomerular Filt Rate 56; Glucose 92 mg/dL (65-110); Magnesium 2.2 mg/dL (1.6-2.3); Phosphorus 3.2 mg/dL (2.5-4.5); Potassium 3.9 mmol/L (3.4-5.0); Sodium 137 mmol/L (137-145)
[2022-10-16 07:42] LABS: Glucose Point of Care 98 mg/dl (65-105)
[2022-10-16] MEDS: MULTIVITAMINS THERAPEUTIC TAB (*BKC) 1 TABLET PO (09:13)
[2022-10-16] MEDS: BUDESONIDE 3 MG CAP.SR.24H 6 MG PO (09:13)
[2022-10-16] MEDS: DULoxetine HCL 60 MG CAPSULE.DR PO (09:13)
[2022-10-16] MEDS: LEFLUNOMIDE 20 MG TABLET PO (09:13)
--- NOTE | 2022-10-16 09:13 | PM.PNCARD ---
Progress Note: A&P Assessment and Plan (1) Recurrent syncope: Code(s): R55 - Syncope and collapse Status: Acute Assessment and Plan: Her syncopal episodes most surely related to orthostatic hypotension. BP is better, still dropping SBP upon standing but drops are not as significant. Continue midodrine 2.5mg p.o. b.i.d. Holding BP meds for now. If blood pressure medication is needed, would avoid HCTZ. Echocardiogram showed preserved ejection fraction 60-65% and no valvular pathology. Cardiology will sign off please do not hesitate to contact us with any questions. (2) Hypomagnesemia: Code(s): E83.42 - Hypomagnesemia Status: Acute Assessment and Plan: 2.2 today. (3) Hypokalemia: Code(s): E87.6 - Hypokalemia Status: Acute Assessment and Plan: Improved today, 3.9. (4) Chronic diarrhea: Code(s): K52.9 - Noninfective gastroenteritis and colitis, unspecified Status: Acute Assessment and Plan: GI following has known dx of lymphocytic colitis. (5) HTN (hypertension): Qualifiers: Hypertension type: essential hypertension Qualified Code(s): I10 - Essential (primary) hypertension Code(s): I10 - Essential (primary) hypertension Status: Acute Assessment and Plan: Continue to hold BP meds (6) Tobacco use: Code(s): Z72.0 - Tobacco use Status: Acute (7) Nonischemic cardiomyopathy: Code(s): I42.8 - Other cardiomyopathies Status: Acute Assessment and Plan: Echocardiogram from yesterday showed preserved ejection fraction 60 65%. No valvular pathology Subjective Date/time seen: 10/16/22 09:13 Cardiology follow up for orthostatic hypotension She has no complaints this morning. Denies any syncope, presyncope, chest pain, or palpitations. Review of Systems Review of Systems: All systems reviewed & are unremarkable except as noted in HPI and below Constitutional: Constitutional: Denies body ache(s), Denies excessive sweating, Reports fatigue, Reports lethargy and Reports weakness Eyes: Eyes: Denies blurry vision ENT: Reports Normal hearing present Cardiovascular: Cardiovascular: Denies chest pain, Denies pedal edema and Reports dyspnea Respiratory: Respiratory: Reports dyspnea Gastrointestinal: Gastrointestinal: Denies abdominal pain and Reports diarrhea Genitourinary: Genitourinary: Denies hematuria Musculoskeletal: Musculoskeletal: Denies back pain and Denies arthralgias Integumentary/Breasts: Skin/Breast: Denies dry skin Neurologic: Reports Normal hearing present, Denies Abnormal speech present, Denies behavioral changes and Reports weakness Psychiatric: Psychiatric: Denies anxiety and Denies behavioral changes Endocrine: Endocrine: Denies excessive sweating and Reports fatigue Hematologic/Lymphatic: Hematologic/Lymphatic: Denies easy bleeding Allergic/Immunologic: Allergic/Immunologic: Denies GI upset with certain foods Exam Narrative: Awake alert and oriented appears stated age Const: General: comfortable and no acute distress HENMT: Face/Nose/Sinus: Normal nares present Mouth: Yes moist mucous membranes Eyes: Sclera: sclerae normal Neck: Neck: supple Carotids: no bruits Chest: Other: no reproducible chest wall pain to palpation Resp: Effort & Inspection: normal respiratory effort Auscultation: clear to auscultation bilaterally Cardio: Rate: regular rate Rhythm: regular rhythm Heart sounds: no murmurs GI: Inspection: non-distended Auscultation: normal bowel sounds Skin: General skin exam: normal color and no rashes or lesions noted Neuro: Cranial nerves: Yes Normal hearing present Speech: normal speech and No Abnormal speech present Motor exam (neuro): Normal motor muscle tone present throughout Sensory Exam: normal sensation Extrem: General: normal to inspection Psych: Mental Status: mental status grossly normal Aff
[2022-10-16] MEDS: PANTOPRAZOLE 40 MG TABLET PO (09:14)
[2022-10-16] MEDS: HYDROXYCHLOROQUINE SULFATE 200 MG TABLET PO (09:14)
[2022-10-16] MEDS: VITAMIN B COMPLEX CAPSULE 1 CAP PO (09:14)
[2022-10-16] MEDS: POTASSIUM CHLORIDE 20 MEQ TABLET.ER PO ×2 (09:14→12:39)
[2022-10-16] MEDS: MIDODRINE HCL 2.5 MG TABLET PO (09:14)
[2022-10-16] MEDS: MAGNESIUM OXIDE 400 MG TABLET PO (09:14)
[2022-10-16] MEDS: ATORVASTATIN 40 MG TABLET PO (09:14)
--- NOTE | 2022-10-16 11:00 | WPDGIPROGNO ---
Progress Note: A&P Assessment and Plan (1) Microscopic colitis: Code(s): K52.839 - Microscopic colitis, unspecified Status: Acute Assessment and Plan: denies diarrhea, continue with budesonide- already sent prescription to her pharmacy she can follow-up office in 6-8 weeks (2) Chronic diarrhea: Code(s): K52.9 - Noninfective gastroenteritis and colitis, unspecified Status: Acute Assessment and Plan: probably from lymphocytic colitis, on treatment now and much better (3) Recurrent syncope: Code(s): R55 - Syncope and collapse Status: Acute Assessment and Plan: no more episodes (4) Nonischemic cardiomyopathy: Code(s): I42.8 - Other cardiomyopathies Status: Acute (5) Occult blood in stools: Code(s): R19.5 - Other fecal abnormalities Status: Acute Assessment and Plan: had recent colonoscopy, no need to repeat another one Subjective Date/time seen: 10/16/22 11:00 Interval history: only 1 BM today, no more diarrhea and she is going home today Review of Systems Review of Systems: All systems reviewed & are unremarkable except as noted in HPI and below Exam Const: General: comfortable and no acute distress HENMT: Face/Nose/Sinus: Normal nares present Eyes: General: appearance normal, both eyes and all related structures Neck: Neck: no JVD Resp: Auscultation: clear to auscultation bilaterally Cardio: Rate: regular rate Rhythm: regular rhythm GI: Inspection: non-distended GI Palp: Yes Soft to palpation and No Tenderness to palpation present (GI) Auscultation: normal bowel sounds Skin: General skin exam: normal color Neuro: Speech: normal speech Extrem: General: normal to inspection Psych: Mental Status: mental status grossly normal Objective Data Vital Signs Vital Signs: Vital Signs - 24 hr 10/15/22 17:00 10/15/22 17:18 10/15/22 17:18 Temperature 97.3 F L Pulse Rate 91 Respiratory Rate 16 Blood Pressure 143/85 H 141/71 H 115/49 L Pulse Oximetry 97 Oxygen Delivery 10/15/22 20:00 10/15/22 22:00 10/15/22 22:00 Temperature 97.4 F L Pulse Rate 85 85 Respiratory Rate 18 18 Blood Pressure 118/82 118/82 Pulse Oximetry 98 98 Oxygen Delivery Room Air 10/15/22 22:05 10/15/22 22:10 10/16/22 00:00 Temperature Pulse Rate 87 88 87 Respiratory Rate Blood Pressure 160/81 H 129/81 Pulse Oximetry 99 98 98 Oxygen Delivery CPAP 10/16/22 05:03 10/16/22 06:00 10/16/22 09:14 Temperature 96.7 F L Pulse Rate 85 84 Respiratory Rate 18 Blood Pressure 185/88 H Pulse Oximetry 96 99 Oxygen Delivery CPAP Room Air Intake/Output Intake/Output: Intake & Output 10/13/22 10/14/22 10/15/22 10/16/22 23:59 23:59 23:59 23:59 Intake Total 2480 6305 1730 1772 Output Total 450 2500 Balance 2030 6305 1730 -115 Meds/Results Radiology Results: ITS Impressions Carotid Doppler Study 10/13/22 06:05 IMPRESSION: 1. <50% stenosis in the right internal carotid artery. 2. <50% stenosis in the left internal carotid artery. Labs Labs: Laboratory Results - last 24 hr 10/15/22 10/15/22 10/16/22 16:42 20:17 05:55 WBC 3.9 L RBC 3.14 L Hgb 9.6 L Hct 28.9 L MCV 92.0 D MCH 30.6 MCHC 33.2 RDW 14.7 H Plt Count 181 MPV 10.0 Sodium Potassium Chloride Carbon Dioxide Anion Gap BUN Creatinine Estim Creat Clear Calc Estimated GFR Glucose POC Capillary Glucose 87 120 H Calcium Phosphorus Magnesium Albumin 10/16/22 10/16/22 10/16/22 05:55 07:36 11:07 WBC RBC Hgb Hct MCV MCH MCHC RDW Plt Count MPV Sodium 137 Potassium 3.9 Chloride 108 H Carbon Dioxide 26 Anion Gap 3 L BUN 6 L Creatinine 1.00 Estim Creat Clear Calc 46 Estimated GFR 56 L Glucose 92 POC Capillary Glucose 98 101 Calcium 9.1 Phosph
[2022-10-16 11:25] LABS: Glucose Point of Care 101 mg/dl (65-105)
--- NOTE | 2022-10-16 13:12 | PM.DS ---
DS: Admitting Diagnosis Discharge Date October 16, 2022 Admitting Diagnosis Recurrent syncope DS: Discharge Diagnosis Discharge Diagnosis (1) Recurrent syncope: Code(s): R55 - Syncope and collapse Status: Acute Assessment and Plan: Exact etiology is unknown, but Cardiology has opinion that it is most likely secondary to Orthostatic Hypotension and has recommended discontinuing her BP meds. Continue daily orthostatic blood pressure readings, she does appear to continue to be Orthostatic. Midodrine ECHO noted (2) Hypomagnesemia: Code(s): E83.42 - Hypomagnesemia Status: Acute Assessment and Plan: Magnesium 1.0>1.9 Magnesium supplementation IV ordered. (3) Hypokalemia: Code(s): E87.6 - Hypokalemia Status: Acute Assessment and Plan: Potassium3.1>3.3 Continue supplements Still at 3.3, but is slowly rising. (4) Acute kidney injury: Code(s): N17.9 - Acute kidney failure, unspecified Status: Acute Assessment and Plan: Possibly secondary to dehydration versus viral illness Creatinine stable today at 1.2 with BUN of 11 and GFR of 45. Avoid nephrotoxins agents (5) Acute anemia: Code(s): D64.9 - Anemia, unspecified Status: Acute Assessment and Plan: H&H10.9/33.3 , 10.1/ 30.0 baseline appears to be within normal limits Patient occult blood positive x2 Will consult GI as she has had two positive occult blood. No active bleeding noted DS: Summary Hospital Course Hospital Course: Admitted for orthostatic hypotension recurrent syncope. Blood pressure medications have been stopped patient started on midodrine. Appreciate Cardiology. Patient is much improved now blood pressure has improved she is no longer symptomatic when she stands up. Patient can be discharged Time Spent with Patient Time attestation: Total time spent providing and/or coordinating discharge services: Exam Narrative: Patient is comfortable, NAD HEENT: eyes are clear and none icteric LUNGS: normal respiratory effort ABD: Lower extremities: no edema SKIN: nonjaundiced Neuro: grossly intact. Const: General: comfortable and no acute distress Other: Appears frail HENMT: Mouth: Yes moist mucous membranes Eyes: General: appearance normal, both eyes and all related structures Sclera: sclerae normal Pupils: Equal, round and reactive pupils present EOM: EOMs intact bilaterally Neck: Neck: supple and no JVD Resp: Effort & Inspection: normal respiratory effort Auscultation: clear to auscultation bilaterally Cardio: Rate: regular rate Rhythm: regular rhythm Heart sounds: no gallops, no murmurs and no rubs GI: Inspection: non-distended Auscultation: normal bowel sounds Skin: General skin exam: normal color, no rashes or lesions noted, no erythema, No lesion and No rashes Lesions: no lesions noted Rashes: no rashes noted Wounds: no wounds Neuro: Cranial nerves: Yes Equal, round and reactive pupils present and Yes Normal hearing present Speech: normal speech and No Abnormal speech present Motor exam (neuro): Abnormal motor strength present (3/5 throughout all four extremities.) Sensory Exam: normal sensation Extrem: General: normal to inspection, no edema and no pedal edema Psych: Mental Status: mental status grossly normal Affect: normal affect DS: Data Data Completed and Pending Labs on day of discharge: Labs from last 24 hours 10/16/22 10/16/22 10/16/22 11:07 07:36 05:55 WBC RBC Hgb Hct MCV MCH MCHC RDW Plt Count MPV Sodium 137 Potassium 3.9 Chloride 108 H Carbon Dioxide 26 Anion Gap 3 L BUN 6 L Creatinine 1.00 Estim Creat Clear Calc 46 Estimated GFR 56 L Glucose 92 POC Capillary Glucose 101 98 Calcium 9.1 Phosphorus 3.2 Magnesium 2.2 Albumin 3.3 L 10/16/22 10/15/22 10/15/22 05:55 20:17 16:42 WBC 3.9 L RBC
== END 2022-10-16 14:05 | disposition home health service (06) | DRG 312 ==
LOC: ANHED 04:00 → ANH3MEDSUR 05:56
PROVIDERS: Internal Medicine; Nurse Practitioner; Nurse Practitioner Adult Health; Admitting Provider Internal Medicine; Emergency Provider Family Medicine; PCP Internal Medicine; Visit Provider Chiropractor
DX: I95.1 Orthostatic hypotension (principal); N17.9 Acute kidney failure, unspecified; I42.8 Other cardiomyopathies; E83.42 Hypomagnesemia; E87.6 Hypokalemia; Z20.822 Contact with and (suspected) exposure to COVID-19; E11.9 Type 2 diabetes mellitus without complications; I10 Essential (primary) hypertension; K52.832 Lymphocytic colitis; R19.5 Other fecal abnormalities; M06.9 Rheumatoid arthritis, unspecified; M32.9 Systemic lupus erythematosus, unspecified; G47.33 Obstructive sleep apnea (adult) (pediatric); K21.9 Gastro-esophageal reflux disease without esophagitis; E11.42 Type 2 diabetes mellitus with diabetic polyneuropathy; D63.1 Anemia in chronic kidney disease; E86.0 Dehydration; Z87.891 Personal history of nicotine dependence
CPT/HCPCS: 36415; 70450; 80053; 80069; 82247; 82248; 82274; 82533; 82607; 82728; 82746; 82948; 83540; 83550; 83735; 84100; 84443; 84466; 85025; 85027; 85046; 87493; 87636; 93005; 93306; 93880; 96365; 96376; 97110; 97116; 97161; 97165; 97530; 97535; 99285; A9270; G0378; J3475; J7030

== ENCOUNTER 2023-05-07 13:19 | Outpatient (CLI) | payer MEDICARE, BC, SELFPAY ==
--- NOTE | ~2023-05-07 | CT_ITS ---
CT Scan of the Chest without Contrast: Clinical Indication: Lung cancer screening, personal history of nicotine dependence Technique: Contiguous sections were acquired throughout the chest without intravenous contrast. Dose reduction technique was used on this scan by utilizing automated exposure control and iterative recon struction technique. The dose-length product (DLP) was 60.45 mGy-cm. COMPARISON: 05/06/2022 and 02/11/2021 Findings: There is no evidence of any significant mediastinal, hilar or axillary lymphadenopathy. Calcified sub carinal and left hilar lymph nodes are present. The mediastinal soft tissues otherwise appear normal. There is no evidence of pleural or pericardial effusion. Calcified left lower lobe granuloma noted. Lungs are otherwise clear. Images through the upper abdomen reveal calcified splenic granulomas. Impression: Lung RADS 2: Benign appearance. 12 month follow-up screening CT advised. Reviewed, dictated and finalized at [facility]. Impression: Lung RADS 2: Benign appearance. 12 month follow-up screening CT advised.
== END 2023-05-07 13:20 | disposition home or self-care (01) ==
LOC: ANHIMG 13:22
PROVIDERS: PCP Family Medicine; Visit Provider Physician Assistant
DX: Z12.2 Encounter for screening for malignant neoplasm of respiratory organs (principal); Z87.891 Personal history of nicotine dependence
CPT/HCPCS: 71271

== ENCOUNTER 2023-07-31 02:05 | Day surgery (SDC) | payer MEDICARE, BC, SELFPAY ==
[2023-07-30 11:44] VITALS: BMI 23.0
[2023-07-31 10:02] VITALS: BP 165/78; PULSE 70; RESP 20; TEMP 36.4; O2SAT 95; BMI 23.4
[2023-07-31 10:30] VITALS: BP 175/73; PULSE 82; RESP 21; O2SAT 94
[2023-07-31 10:35] VITALS: BP 161/75; PULSE 74; RESP 22; O2SAT 94
--- NOTE | 2023-07-31 10:45 | P.PCNCC_ITS ---
Cardiac Cath Procedure Note Date of procedure:: 07/31/23 Performing physician:: Gucci Valdes MD Indication:: Recurrent syncope Brief clinical history:: This is a 63-year-old woman with recurrent intermittent syncopal episodes without a diagnosis. Loop recorder implant has been recommended Procedure Procedure performed:: Implantation of loop recur Sedation/Medication given:: No sedation Access site:: Left anterior chest wall Procedure note:: Patient was brought to the cardiac catheterization lab holding area in the postabsorptive state. The left anterior chest wall was inspected a stephany was made in the 6th intercostal space in the superior aspect of the left breast. The patient on x-ray has significant COPD and evidence of hyperinflation with inferior and vertical displacement of the heart. For this reason the device was placed somewhat lower in the chest wall than would be routine. 1% lidocaine was infiltrated in this location with 20 cc given. Following this the supplied insertion kit for the Medtronic LINQ device was used to create a puncture/stab wound in the skin. The insertion device was then inserted in the puncture in inferior direction. The insertion tool was then used to deploy the device subcutaneously. The telemetry demonstrated very good R-wave sensing. The pressure was being held for small amount of oozing at the puncture site this was then dressed with bio glue and a Band-Aid. Following this the patient will be discharged. Follow-up will be in the office with her established desktop engineer Findings:: As above Conclusion:: Patient received a Medtronic LINQ 2 Loop recorder [id number]. Serial number [id number] for ongoing surveillance of her rhythm with history of intermittent syncopal events. Gucci Valdes MD [facility] Assessment and Plan Assessment and plan (1) Near syncope: Code(s): R55 - Syncope and collapse Status: Acute Plan Uneventful implantation Medtronic LINQ loop recorder as described above Gucci Valdes MD [facility]
[2023-07-31 11:01] VITALS: BP 154/89; PULSE 79; RESP 15; O2SAT 94
== END 2023-07-31 12:00 | disposition home or self-care (01) ==
PROVIDERS: PCP Family Medicine; Visit Provider Specialist
PROC: (CPT 33285; principal; 2023-07-31 10:30)
DX: R55 Syncope and collapse (principal)
CPT/HCPCS: 33285; C1764

== ENCOUNTER 2023-08-13 14:47 | Outpatient (CLI) | payer MEDICARE, BC, SELFPAY ==
--- NOTE | ~2023-08-13 | MM_ITS ---
EXAMINATION: MM screening trey BI w nga HISTORY: Screening TECHNIQUE: Craniocaudal and mediolateral oblique 3-D tomosynthesis images were obtained and synthetic 2-D images were generated. CAD analysis was submitted and interpreted. COMPARISON: Comparison to multiple prior studies sequentially, with oldest reviewed study dated 02/2014. BREAST PARENCHYMAL COMPOSITION: There are scattered areas of fibroglandular density. FINDINGS: There is no evidence of suspicious mass, calcification, or architectural distortion to sugg est malignancy in either breast. There has been no suspicious interval change. IMPRESSION: 1. No mammographic evidence of malignancy. 2. Recommend routine screening mammography in one year. BI-RADS Category 1: Negative Reviewed, dictated and finalized at [facility]. HANGER
== END 2023-08-13 14:48 | disposition home or self-care (01) ==
PROVIDERS: PCP Family Medicine; Visit Provider Family Medicine
DX: Z12.31 Encounter for screening mammogram for malignant neoplasm of breast (principal)
CPT/HCPCS: 77063; 77067

== ENCOUNTER 2023-11-16 13:43 | Outpatient (CLI) | payer MEDICARE, SELFPAY ==
--- NOTE | ~2023-11-16 | CT_ITS ---
EXAMINATION: CT abdomen pelvis w con DATE: 11/16/2023 14:07 INDICATION: Unspecified abdominal pain. Nausea with vomiting. TECHNIQUE: Computed tomography (CT) of the abdomen and pelvis was performed with 100 CC Omnipaque 350 intravenous contrast. Automated exposure control and iterative reconstruction technique were employe d. Exam dose: 328.54 mGy-cm total exam DLP. COMPARISON: 04/29/2019 complete abdominal ultrasound examination FINDINGS: Minimal dependent atelectasis in the lingula and lower lobes. Normal heart size. No pericar dial or pleural effusion. The liver, gallbladder, bile ducts, pancreas and pancreatic duct as well as adrenal glands and kidney s are unremarkable. Numerous splenic calcified granulomas. No splenomegaly or splenic mass lesion. Abdominal aortic calcification without aneurysm or dissection. No intraperitoneal or retroperitoneal or pelvic mass lesion or adenopathy or ascites. Status post hysterectomy. The urinary bladder is relatively evacuated and not optimally evaluated as result. No evidence of appendicitis. No bowel obstruction, bowel wall thickening, pneumatosis or intraperiton eal free air. Right gluteal battery pack with neurotransmitter lead extending posterior anteriorly through a left s acral neural foramen. No suspicious osteolytic or osteoblastic lesions. IMPRESSION: Status post hysterectomy No bowel obstruction or free air Reviewed, dictated and finalized at [facility]. Reviewed, dictated and finalized at [facility]. ICE WRITER
== END 2023-11-16 13:44 | disposition home or self-care (01) ==
PROVIDERS: PCP Family Medicine; Visit Provider Nurse Practitioner Family
DX: R10.9 Unspecified abdominal pain (principal); R11.2 Nausea with vomiting, unspecified; R19.7 Diarrhea, unspecified
CPT/HCPCS: 74177; Q9967

== ENCOUNTER 2024-04-06 14:15 | Outpatient (RCR) | payer MEDICARE, SELFPAY ==
--- NOTE | 2024-03-15 09:57 | OPREHPOC ---
Outpatient Therapy Plan of Care This is a Multidisciplinary Plan of Care that may contain components documented by all disciplines (PT, OT, and ST.) PT Problem 1 PT Problem #1 Knowledge Deficit PT Goal 1 Goal *indep with HEP Target Visit 8 PT Problem 2 PT Problem #2 Pain PT Goal 1 Goal 1* monitor back pain with increased activity, at worst rating of 4/10 2* Oswestry self assessment functional score of 26% limitation in activity level Target Visit 8 PT Problem 3 PT Problem #3 Impaired Strength PT Goal 1 Goal * increase trunk and hip strength to improve walking and mobility skills 1* with walking 300'- path straight 2* with walking 300'- hip rotation in neutral/ no IR 3* 5 reps sit/stand time of 15 seconds 4* side lying hip abduction on R and L x 20 reps Target Visit 8 PT Problem 4 PT Problem #4 Impaired Functional Mobility PT Goal 1 Goal 1* 2 minute walking test distance of 460' 2* pt report going out into the community and doing her shopping Target Visit 8
--- NOTE | 2024-03-15 10:00 | PTOPEVAL1 ---
Assessment and note entered by Valerie Paige, PT Evaluation Information Assessment Status Evaluation Diagnosis low back pain, weakness Onset about past year Subjective Information in the past year- got sick, was passing out, potassium out of whack---to ER, hospitalized for one week; BP issues; issues with stomach-- nausea, vomitting and diarrhea-- have had testing and all has been negative; it seems to get worse when back hurts and eases with lying down; Activity: not working outside of home; do not use assistive device, have not had any falls in the past 6 months; has to help with home chores due to her weakness. have a basement and she does go down there, but not often--not need to ; can do light grocery shopping, does lifting; from previous PT is doing exercises for legs- sitting and standing ankle PF; Goal: get stronger overall and walk better Reported Pain Level Pain Score 0: Self Report Additional Pain Score Comments pain range in the past week: 0-6/10; increase nausea with back pain; decrease pain: lie down, sit down Assessment PT Clinical Summary Jennifer has 2 diagnosis'- low back pain and weakness. She reports weakness is more of a concern for her. Onset of weakness about 1 year ago with hospitalization and medical issues with abdomen. Her is assisting with home tasks and she has decreased activity/walking tolerance. With the evaluation: 5 reps sit/stand time of 20 seconds; 2 minute walking test distance of 410'; with gait, does not walk a straight path and holds hips with IR; weakness of hips and trunk, with hip abduction the most weakness. Skilled PT services are indicated for therapeutic exercises to increase trunk and hip strength, balance and gait skills, with education for HEP; monitor pain in back with treatment of modalities PRN.
--- NOTE | 2024-03-17 10:28 | PCPTNOTE ---
No call, no show. Reason unknown. KALIA
--- NOTE | 2024-03-17 10:29 | PCPTNOTE ---
Pt seen this date, 15 min lillie.
--- NOTE | 2024-03-29 14:51 | PCPTNOTE ---
Patient called & cancelled scheduled appointment this date due to falling after getting out of her pool.
--- NOTE | 2024-04-06 16:39 | PTOPDC ---
Assessment and note entered by Denise Palmer, PT Discharge Information Assessment Status Discharge Diagnosis low back pain, weakness Onset about past year Subjective Information Pt reports she is feeling great and is doing her exercises at home, no pain in the back, she states she is able to sleep and move around much better and states therapy has helped her get back to her active lifestyle. Reported Pain Level Pain Score 1: Self Report Assessment PT Clinical Summary Pt demos excellent progress with therapy and has met all established goals. HEPs reviewed and updated/upgraded/modified. She reports consistently performing exercises at home and in the pool. Skilled PT services discontinued at this time. Plan of Care PT Services Indicated No
== END 2024-05-30 11:23 | disposition home or self-care (01) ==
LOC: ANHPT 14:15
PROVIDERS: PCP Family Medicine; Visit Provider Family Medicine
DX: M54.50 Low back pain, unspecified (principal); R53.1 Weakness
CPT/HCPCS: 97110; 97140; 97161; 97530; 97750

== ENCOUNTER 2024-05-10 13:36 | Outpatient (CLI) | payer MEDICARE, SELFPAY ==
--- NOTE | ~2024-05-10 | CT_ITS ---
CT Scan of the Chest without Contrast: Clinical Indication: Lung cancer screening, nicotine dependence Technique: Contiguous sections were acquired throughout the chest without intravenous contrast. Dose reduction technique was used on this scan by utilizing automated exposure control and iterative recon struction technique. The dose-length product (DLP) was 76.86 mGy-cm. COMPARISON: 05/07/2023 Findings: There is no evidence of any significant mediastinal, hilar or axillary lymphadenopathy. Calcified sub carinal and left hilar lymph nodes are present. There is no evidence of pleural or pericardial effusion. Calcified left lower lobe granuloma present. Images through the upper abdomen reveal calcified splenic granulomas. Impression: Lung RADS 2: Benign appearance. 12 month follow-up screening CT advised. Reviewed, dictated and finalized at [facility]. Impression: Lung RADS 2: Benign appearance. 12 month follow-up screening CT advised.
== END 2024-05-10 13:37 | disposition home or self-care (01) ==
PROVIDERS: PCP Family Medicine; Visit Provider Physician Assistant
DX: Z12.2 Encounter for screening for malignant neoplasm of respiratory organs (principal); Z87.891 Personal history of nicotine dependence
CPT/HCPCS: 71271

== ENCOUNTER 2025-04-12 15:13 | Emergency (ER) | payer MEDICARE, SELFPAY ==
--- NOTE | ~2025-04-12 | XR_ITS ---
EXAM/PROCEDURE: XR chest 2V - 04/12/2025 15:36 CDT HISTORY: 65 years old Female with cough/sob 1.5 months worse last 1.5 week. former smoker TECHNIQUE: Two view(s) of the chest. COMPARISON: None available. FINDINGS: LUNGS/ PLEURA: No focal consolidation. No appreciable pneumothorax or large pleural effusion. HEART/ MEDIASTINUM: Heart appears normal in size. BONES: Degenerative changes. OTHER: Visualized upper abdomen is unremarkable. Epicardial pacemaker seen. Partially visualized ACDF . IMPRESSION: No acute process. Reviewed, dictated and finalized at location A. IMPRESSION: No acute process.
--- NOTE | 2025-04-12 15:15 | ED_ITS ---
HPI - URI/Sore Throat General Chief Complaint: Upper Respiratory Infection Stated Complaint: Cold Like Time Seen by Provider: 04/12/25 15:15 Source: patient, RN notes reviewed and old records reviewed Mode of arrival: ambulatory Limitations: no limitations History of Present Illness HPI Narrative: Arabella is a 65-year-old female patient presenting to the clinic today with complaints of chest congestion, sinus congestion, productive cough with yellow phlegm, and shortness of breath. She reports symptoms started on February 23 with a sore throat and has gradually gotten worse. Has had Augmentin prescribed by her primary care and azithromycin prescribed by her vertica architect and she states that this not has not helped her symptoms. She has not received any steroids. No history of COPD. 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 Former smoker. Denies any chest pain. Oxygenation is 99% on room air. Patient is shaking and not able to speak in full sentences. Related Data Home Medications ?Medication ?Instructions ?Recorded ?Confirmed ?Last Taken ?Type multivitamin (Multiple Vitamins 1 tablet PO DAILY 07/23/21 06/20/24 07/30/23 History tablet) vitamin B complex (B 1 tablet PO DAILY 07/23/21 06/20/24 07/30/23 History Complex-Vitamin B12 tablet) losartan 25 mg tablet 25 mg PO DAILY 12/03/22 06/20/24 07/31/23 07:00 History amlodipine 10 mg tablet 10 mg PO DAILY 07/30/23 06/20/24 07/31/23 07:00 History metoprolol succinate 25 mg 25 mg PO DAILY 07/30/23 06/20/24 07/31/23 07:00 History tablet,extended release 24 hr abatacept 125 mg/mL subcutaneous mg subcut 04/12/25 Unknown History auto-injector (Orencia ClickJect) Allergies Allergy/AdvReac Type Severity Reaction Status Date / Time adhesive tape Allergy Intermediate Blister Verified 06/20/24 13:30 ALEERGY MEDS W DECONGESTANT Allergy Intermediate Palpitation Uncoded 06/20/24 13:30 s Review of Systems Review of Systems: Pertinent positives per HPI. Patient denies any fever, chills, rash, headache, visual changes, dizziness, chest pain, palpitations, nausea, vomiting, diarrhea, constipation, abdominal pain, or any urinary issues. [facility] Past Medical History Medical History Abdominal pain Occult blood in stools Lupus (systemic lupus erythematosus) Nonischemic cardiomyopathy Mild left ventricular enlargement Diastolic dysfunction Echocardiogram 11/2020: Normal left ventricular systolic function, mild concentric left ventricular hypertrophy, impaired diastolic relaxation grade 1, EF of 55-60, mild tricuspid regurgitation Type 2 diabetes mellitus Batres's esophagus Diabetic neuropathy Essential hypertension Lymphocytic colitis Resulting in chronic diarrhea Essential (primary) hypertension Gastroesophageal reflux Lung nodule Microscopic hematuria ANYA (obstructive sleep apnea) Polysomnogram 11/2021: Mild obstructive sleep apnea with a HI 12.1. CPAP with previous settings versus auto PAP 5-15 Postmenopausal Tobacco use Anxiety Arthritis Rheumatoid arthritis (~1999) Surgical History Surgical History History of colonoscopy with polypectomy (06/2022) Tubular adenoma History of esophagogastroduodenoscopy (EGD) (06/2022) Family History Family History Mother Diabetes mellitus Family history of osteoporosis Family history of malignant neoplasm Father Cerebrovascular accident Family history of congestive heart failure Other Family history of cardiovascular disease Family history of mental disorder Hypertension Social History Social History Social History: Code status: Full code Surrogate decision maker: Smoking packs per day: 0.5 Smoking cigarettes per day: 10.0 Years smoked: 40 Smoking pack-years: 20.00 Smoking status: Former smoker Tobacco type: cigarettes Second hand tobacco smoke exposure: No Alcohol intake: current Drinks per week: 3 Alcohol use details: 3 glasses of wine per week Substance use: never Substance use type: does not use Lack of Transportation: No Lack of Food: Never True Current Housing: I Have Housing Concerned About Future Housing: No Difficulty Paying Gas/Electric Bills: No Difficulty Paying for Meds: No Currently Unemployed: No Education: High School Diploma/GED Difficulty w/ Childcare or Family Care: No Living arrangements: with family Additional living arrangements comments: Lives with her . Spiritual care concerns: No Comments At the time of my signature, I reviewed and agree with the nursing past medical, surgical, social, and family history. There is no relevant family history pertinent to the patient complaint. Exam Narrative: General: Well-developed, well nourished, acutely ill-increase respirations with mild retractions Head: Normocephalic, atraumatic Eyes: Pupils equally round and reactive to light bilaterally, EOM intact, sclera and conjunctive clear, no discharge, lids normal Ears: TMs intact and clear, ear canals ceruminous no drainage, grossly hearing normal. Nose: Nares patent, clear nasal discharge, moderate inflammation, no sinus tenderness. Mouth: Oral pharynx red without lesions or masses, good dentition, MMM. Postnasal drip Neck: Supple, trachea midline, no enlargement of anterior or posterior cervical nodes, no thyroid masses or goiter palpable. Cardio: Regular rate and rhythm, s1 and s2 normal, no murmur appreciated. Resp: Lung sounds tight with expiratory rhonchi, no rales, wheezing or rubs Course Course Emergency Course: Portions of this record may have been created with voice recognition software. Level of Care: Express Care Visit Vital Signs Vital signs: Vital Signs Temperature 37.3 C 04/12/25 15:22 Pulse Rate 102 H 04/12/25 15:22 Respiratory Rate 24 H 04/12/25 15:22 Blood Pressure 133/77 04/12/25 15:22 Pulse Oximetry 99 04/12/25 15:22 Oxygen Delivery Room Air 04/12/25 15:22 Temperature 37.3 C 04/12/25 15:22 Pulse Rate 102 H 04/12/25 15:22 Respiratory Rate 24 H 04/12/25 15:22 Blood Pressure 133/77 04/12/25 15:22 Pulse Oximetry 99 04/12/25 15:22 Oxygen Delivery Room Air 04/12/25 15:22 Vital signs reviewed MDM - URI/Sore Throat MDM Narrative Medical decision making narrative: At the time of visit patient is resting on the exam table. Patient appears to be nontoxic. Respirations are 24 with mild retractions. Lung sounds diminished with expiratory rhonchi. SpO2 99% on room air. Patient is a former smoker and has a history of illness induced asthma/sleep apnea. No known fevers. Does have productive cough with yellow phlegm. Denies any chest pain. Chest x-ray was ordered. DuoNeb and Solu-Medrol ordered. Past medical history reviewed. Medications: DuoNeb hand-held neb treatment given in the clinic today-symptoms improved after treatment-better aeration with wheezing, Solu-Medrol 125 mg IM given in the clinic today Diagnostics: Chest x-ray is negative for any acute cardiopulmonary process Plan: I suspect patient has acute purulent bronchitis. Other differentials are below. Wells criteria for PE 1.5- low risk group. Will send in prescription for doxycycline, prednisone, and albuterol inhaler. Supportive measures were discussed with the patient and they voiced understanding discharge instructions and agrees to treatment plan. Return precautions reviewed Well criteria for PE: 1.5?points Low risk group: 1.3% chance of PE in an ED population. Another study assigned scores <=4 as ?PE Unlikely? and had a 3% incidence of PE. Differential Diagnosis Differential diagnosis: Likely upper respiratory infection, otitis media, sinusitis, viral infection, bronchitis, influenza, pharyngitis and other (COVID, COPD exacerbation, PE, CHF) Imaging Data Radiologist's impression: ITS Impressions Chest X-Ray 04/12/25 15:48 IMPRESSION: No acute process. Discharge Plan Discharge Clinical Impression: Acute purulent bronchitis Patient Disposition: Home Condition: Stable Instructions: Antibiotic Form, Acute Bronchitis (ED) Additional Instructions: DuoNeb treatment given in the clinic today Chest x-rays negative for any acute cardiopulmonary process. No evidence of pneumonia or pleural effusion Solu-Medrol 25 mg IM given in the clinic today Take prescription medications only as prescribed-doxycycline, prednisone, and albuterol inhaler with spacer Start prednisone on 04/12/25 Increase fluids and stay well hydrated Tylenol/motrin for pain/fever Flonase and OTC antihistamines as directed Vicks vapor rub to open sinuses Sinus rinses for congestion Cepacol spray, cough drops, throat lozenges, warm tea with honey/lemon, gargle salt water to soothe throat BRAT diet for diarrhea Clear liquids x 24 hours then advance as tolerated for nausea/vomiting Go to the ED if you develop a worsening in your condition- high fever not controlled by Tylenol or Motrin, dehydration, weakness, lethargy, shortness of breath, or chest pain. Follow up with your PCP in 3-5 days if symptoms persist. Patient Language: Peruvian Prescriptions: New albuterol sulfate 90 mcg/actuation HFA aerosol inhaler 2 puff inhalation Q4-6H PRN (Reason: shortness of breath or wheezing) 30 Days Qty: 8.5 0RF (DME) Space Chamber Spacer See Rx Instructions .ROUTE .MEDSUPPLY Qty: 1 0RF Rx Instructions: As directed doxycycline hyclate 100 mg capsule 100 mg PO BID 7 Days Qty: 14 0RF prednisone 20 mg tablet 40 mg PO DAILY 5 Days Qty: 10 0RF No Action Orencia ClickJect 125 mg/mL auto-injector SUBCUT losartan 25 mg tablet 25 mg PO DAILY magnesium oxide 500 mg magnesium tablet 500 mg PO DAILY Qty: 90 1RF budesonide 3 mg capsule,delayed,extend.release 9 mg PO DAILY 30 Days Qty: 90 5RF multivitamin [Multiple Vitamins] Tablet 1 tablet PO DAILY vitamin B complex [B Complex-Vitamin B12] Tablet 1 tablet PO DAILY amlodipine 10 mg tablet 10 mg PO DAILY metoprolol succinate 25 mg tablet extended release 24 hr 25 mg PO DAILY atorvastatin 40 mg tablet 40 mg PO DAILY Qty: 90 1RF potassium chloride 20 mEq tablet extended release 20 meq PO TID Qty: 180 1RF prochlorperazine maleate 5 mg tablet 5 mg PO Q8H PRN (Reason: nausea and vomiting) Qty: 20 0RF colestipol 1 gram tablet 1 g PO BID Qty: 60 3RF leflunomide 20 mg tablet 20 mg PO DAILY Qty: 90 1RF hydroxychloroquine [Plaquenil] 200 mg tablet 200 mg PO DAILY Qty: 90 1RF hyoscyamine sulfate 0.375 mg tablet extended release 12 hr See Rx Instructions .ROUTE .COMPLEX Qty: 60 5RF Dose Instruction: TAKE 1 TABLET EVERY 12 HOURS NEEDED FOR ABDOMINAL PAIN Rx Instructions: TAKE 1 TABLET EVERY 12 HOURS NEEDED FOR ABDOMINAL PAIN cholecalciferol (vitamin D3) 1,250 mcg (50,000 unit) tablet 1,250 mcg PO WEEKLY Qty: 14 1RF buspirone 5 mg tablet 5 mg PO BID Qty: 180 1RF duloxetine 60 mg capsule,delayed release(DR/EC) 60 mg PO BID Qty: 180 1RF gabapentin 300 mg capsule See Rx Instructions .ROUTE .COMPLEX Qty: 270 1RF Dose Instruction: TAKE 1 CAPSULE BY MOUTH THREE TIMES A DAY FOR 90 DAYS Rx Instructions: TAKE 1 CAPSULE BY MOUTH THREE TIMES A DAY FOR 90 DAYS trazodone 50 mg tablet See Rx Instructions .ROUTE .COMPLEX Qty: 90 1RF Dose Instruction: TAKE 1 TABLET BY MOUTH EVERY DAY AT BEDTIME Rx Instructions: TAKE 1 TABLET BY MOUTH EVERY DAY AT BEDTIME omeprazole 40 mg capsule,delayed release(DR/EC) See Rx Instructions .ROUTE .COMPLEX Qty: 90 0RF Dose Instruction: TAKE 1 CAPSULE BY MOUTH EVERY DAY Rx Instructions: TAKE 1 CAPSULE BY MOUTH EVERY DAY Follow-up/Referrals: Luis Finch MD [Primary Care Provider] - Time of Disposition: 15:56 Quality NIHSS Nursing Documentation ED NIHSS nursing documentation: reviewed/agree
--- OUTSIDE RECORDS SUMMARY | 2025-04-12 15:15 | XMS_ITS | Clinical Summary ---
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 09/18/20 17 Active gabapentin (NEURONTIN) 300 mg capsule TAKE 2 CAPSULES po at night for restless legs syndrome. 02/15/20 15 Active multivitamin tabletIndicatio ns:Vitamin Deficiency Prevention Active cyanocobalamin (Vitamin B-12) 100 mcg tabletIndicatio ns:Prevention of Vitamin B12 Deficiency Active vit B complex 100 no.3-herbs 100 mg tablet daily. 09/18/20 17 Active omeprazole (PriLOSEC) 40 mg capsule 07/09/20 20 Active ALPRAZolam XR (XANAX XR) 0.5 mg 24 hr tablet alprazolam ER 0.5 mg tablet,extende d release 24 hr Active leflunomide (ARAVA) 20 mg tablet 05/28/20 21 Active budesonide EC (ENTOCORT EC) 3 mg 24 hr capsule 10/15/19 23 Active hydrOXYchloroQU INE (PLAQUENIL) 200 mg tablet 08/19/20 22 Active loperamide (IMODIUM) 2 mg capsule 10/07/19 23 Active Orencia ClickJect 125 mg/mL auto-injector Inject under the skin once a week 07/13/20 24 Active atorvastatin (LIPITOR) 40 mg tablet TAKE 1 TABLET BY MOUTH EVERY DAY 90 tablet 2 11/28/19 25 Active potassium chloride ER (Klor-Con M20) 20 mEq CR tabletIndicatio ns:Hypokalemia TAKE 1 TABLET BY MOUTH 3 TIMES A DAY. 270 tablet 1 11/30/19 25 Active amLODIPine (NORVASC) 5 mg tablet TAKE 1 TABLET (5 MG TOTAL) BY MOUTH DAILY. 90 tablet 02/22/20 25 026 Active metoprolol XL (TOPROL-XL) 25 mg extended release tabletIndicatio ns:PAC (premature atrial contraction),PV C (premature ventricular contraction) TAKE 1/2 TABLET BY MOUTH EVERY DAY 45 tablet 3 03/02/20 25 Active losartan (COZAAR) 25 mg tablet TAKE 1 TABLET (25 MG TOTAL) BY MOUTH DAILY. 90 tablet 3 04/03/20 25 Active losartan (COZAAR) 25 mg tablet Take 1 tablet (25 mg total) by mouth daily 90 tablet 3 01/14/20 24 025 Discontinued Active Problems Problem Noted Date Diagnosed Date Systolic ejection murmur 02/23/2025 Status post placement of implantable loop record er 07/31/2023 Overview (07/31/2023): Medtronic [id number] Loop Recorder. Dx; Syncope. DOI 07/31/2023-[employer]. Cherri Espino. Carelink remote. Recurrent syncope 07/10/2023 Preoperative cardiovascular examination 07/25/20 20 Hypokalemia 04/29/2019 Abnormal echocardiogram 09/06/2018 NICM (nonischemic cardiomyopathy) 09/06/2018 Obstructive sleep apnea 09/06/2018 Burning chest pain 09/06/2018 ORO (dyspnea on exertion) 09/06/2018 PVC (premature ventricular contraction) 09/06/20 18 PAC (premature atrial contraction) 09/06/2018 Palpitations 09/06/2018 Bilateral carotid bruits 09/06/2018 Hypertension associated with diabetes 09/06/2018 Hyperlipidemia associated with type 2 diabetes m ellitus 09/06/2018 Other rheumatoid arthritis w ith rheumatoid factor of multiple sites 03/03/2018 Disorder of the genitourinary system 04/18/2014 Overview (01/08/2017): ACQ ABSNCE GENITAL ORGAN Tension headache 02/18/2014 Overview (01/08/2017): TENSION HEADACHE Microscopic hematuria 02/18/2014 Overview (01/08/2017): MICROSCOPIC HEMATURIA Tobacco dependence syndrome 02/18/2014 Overview (01/08/2017): TOBACCO USE DISORDER Depression 02/18/2014 Overview (01/08/2017): DEPRESSIVE DISORDER NEC Rheumatoid arthritis 02/18/2014 Overview (01/09/2017): RHEUMATOID ARTHRITIS Hypertension 02/18/2014 Overview (01/09/2017): HYPERTENSION NOS Recurrent sinusitis 02/18/2014 Overview (01/09/2017): RECURRENT SINUSITIS Restless legs syndrome 02/18/2014 Overview (01/09/2017): RESTLESS LEGS SYNDROME Encounters Date Type Department Care Team Description 04/03/2025 11:30 AM CDT Ancillary Procedure [facility] [address] [facility] [facility] [address] [place] [phone] Recurrent syncope; Status post placement of implantable loop recorder 03/31/2025 Results Follow-Up [facility] [address] [facility] [address] [place] [address] Johnathan Espino MD Transthoracic Echo (TTE) Complete W Doppler/CF 03/29/2025 2:00 PM CDT Ancillary Procedure [facility] at [address] [place] [address] NICM (nonischemic cardiomyopathy) (HCC); Hypertension associated with diabetes (HCC); Systolic ejection murmur 02/23/2025 2:30 PM CDT Office Visit [facility] at [address] [place] [address] Johnathan Espino MD Hyperlipidemia associated with type 2 diabetes mellitus (HCC) (Primary Dx); NICM (nonischemic cardiomyopathy) (HCC); Hypertension associated with diabetes (HCC); Recurrent syncope; Obstructive sleep apnea; Systolic ejection murmur 02/20/2025 11:15 AM CDT Ancillary Procedure [facility] Medical [facility] [address], [place] [address] Recurrent syncope; Status post placement of implantable loop recorder from Last 3 Months Immunizations Immunization Administration Dates Next Due Influenza, Trivalent, IM (MDV) 07/16/2007 Tdap 01/21/2008 Surgical History Surgery Date Site/Laterality Comments OTHER SURGICAL HISTORY SLING URETHROPEXY C/B NON-HEALING TOTAL ABDOMINAL HYSTERECTOMY W/ BILATERAL SALPINGOOPHORECTOMY PAULINA/BSO SALPINGOOPHORECTOMY Salpingo-oophorectomy Bilateral - (Added by TW Conv) ND TONSILLECTOMY & ADENOIDEC TAL <AGE 12 Tonsillectomy With Adenoidectomy - (Added by TW Conv) INCISIONAL BREAST BIOPSY Incisional Breast Biopsy - (Added by TW Conv) Medical History Medical History Date Comments Endometritis ENDOMETRIOSIS Endometriosis Endometriosis - (Added by TW Conv) Rheumatoid arthritis (HCC) Rheum atoid arthritis - (Added by TW Conv) Chronic sinusitis Chronic sinusi tis - (Added by TW Conv) Personal history of other di seases of the circulatory system History of hypertension - (A dded by TW Conv) Personal history of other me ntal and behavioral disorders History of depression - (Add ed by TW Conv) Personal history of other sp ecified conditions History of tension headache - (Added by TW Conv) Benign neoplasm of sigmoid colon Polyp of sigmoid colon - (Added by TW Conv) Personal history of other in fectious and parasitic diseases History of herpes zoster - ( Added by TW Conv) Family History Medical History Relation Name Comments Heart disease Brother Family history of cardiac disorder - (Added by TW Conv) Cardiac Bypass x7 Father Heart disease Father Family history of cardiac disorder - (Added by TW Conv) Cancer Mother Family history of malignant neoplasm - (Added by TW Conv) Diabetes Mother Family history of diabetes mellitus - (Added by TW Conv) Relation Name Status Comments Brother Father (Age 85) Mother (Age 70) Social History Tobacco Use Types Packs/Day Years Used Date Smoking Tobacco: Former Cigarettes Q uit: 09/06/2016 Smokeless Tobacco: Never Tobacco Cessation:Counseling Given: Not Answered Alcohol Use Standard Drinks/Week Comments Yes 1 (1 standard drink = 0.6 oz pur e alcohol) Comments Unknown Sex and Gender Information Value Date Recorded Sex Assigned at Not on file Legal Sex Female 11:31 PM [employer]INTED [employer]AR[employer] Gender Identity Not on file Sexual Orientation Not on file Obstetrics History Last Filed Vital Signs Vital Sign Reading Time Taken Comments Blood Pressure 138/80 02/23/2025 3:05 PM CDT Pulse 73 02/23/2025 2:41 PM CDT Temperature 36.7 C (98 F) 11/14/2020 10:38 AM [employer] Respiratory Rate 15 07/25/2020 2:16 PM CDT Oxygen Saturation 98% 02/23/2025 2:41 PM CDT Inhaled Oxygen Concentration - - Weight 67.6 kg (149 lb) 02/23/2025 2:41 PM CDT Height 165.1 cm (5' 5) 02/23/2025 2:41 PM CDT Body Mass Index 24.79 02/23/2025 2:41 PM CDT Plan of Treatment Health Maintenance Due Date Last Done Comments Albumin Creatinine Ratio, Urine 1960 Breast Cancer Screening-Mammogram 1960 Depression Screening 1960 Hemoglobin A1C 1960 Hepatitis C Screening 1960 Dilated Eye Exam 1960 Foot Exam 1960 Hepatitis B Screening 1977 Pneumococcal vaccine 65+ (2 of 2 - PPSV23) 03/08/2015 01/11/2015 Osteoporosis Screening-Bone Density Scan 03/08/2017 03/08/2015 eGFR 07/27/2019 07/27/2018 Fall Risk Assessment 07/25/2021 07/25/2020 Colon Cancer Screening-Colonoscopy 02/23/2024 02/22/2014 Well Visit 65+ 2024 Influenza Vaccine (#1) 2025 0, 08/09/2019, 07/24/2018, Additional history exists Lipid Panel 02/23/2026 02/23/2025, 01/03, 11/03/2022, Additional history exists DTaP/Tdap/Td Vaccine (3 - Td or Tdap) 02/15/2029 02/15/2019, 01/21/2008 Colon Cancer Screening-CT Colonography Discontinued 02/22/2014 Colon Cancer Screening-DNA Stool Discontinued 02/23/20 Colon Cancer Screening-FIT Discontinued 02/22/2014 Colon Cancer Screening-Sigmoidoscopy Discontinued 02/22/2014 Zoster Vaccine Completed 02/21/2018, 12/14/2017 Procedures Procedure Name Priority Date/Time Associated Diagnosis Comments TRANSTHORACIC ECHO (TTE) COMPLETE W DOPPLER/CF WO CONTRAST Routine 03/29/2025 2:34 PM CDT NICM (nonischemic cardiomyopathy) (HCC) Hypertension associated with diabetes (HCC) Systolic ejection murmur POCT LIPID PANEL Routine 02/23/2025 2:35 PM CDT Hyperlipidemia associated with type 2 diabetes mellitus (HCC) COMPREHENSIVE METABOLIC PANEL Routine 07/27/2018 12:01 PM CDT DEXA AXIAL SKELETON BONE DENSITY 1 OR MORE SITES Routine 03/08/2015 2:17 PM CDT COLONOSCOPY REPORT 02/22/2014 from Last 3 Months or Most Recently Relevant to Health Maintenance Results * TRANSTHORACIC ECHO (TTE) COMPLETE W DOPPLER/CF WO CONTRAST (03/29/2025 2:34 PM CDT) Estimated EF 60 % CONS SCIMAGE EF Mod BP 63 % CONS SCIMAGE Anatomical Region Laterality Modality Ultrasound 03/29/2025 2:00 PM CDT Narrative 03/29/2025 4:38 PM CDT [facility] [address], [address], [place] [address] P:[phone] P:[phone] Echocardiographic Report Patient Name: SHEILA MARTINEZ L : 1960 Study Date: 03/29/2025 2:00:46 PM Gender: F Running Rigger: CALIN Location: [facility] Ref Provider: JOHNATHAN ESPINO Height(Cm): 165 BSA: 1.76 Weight(Kg): 67.6 Heart Rate: 78 BP: 138 / 80 Quality: Good Order Provider: JOHNATHAN ESPINO PROCEDURES: Echocardiographic Report: Transthoracic echocardiogram with complete 2D, M-Mode, and color Doppler examination. With Strain Analysis. INDICATIONS: NICM, HTN, Diabetes, Systolic Ejection Murmur. MEASUREMENTS: 2D/MM Value Range Doppler Value Range EF Mod BP 63 % [ 54 - 74 ] MANUEL Vmax 1.65 cm2 [ 2.00 - 4.00 ] EF Teich MM 52 % [ 54 - 74 ] AV Mean PG 8 mmHg Estimated EF 60 % AV Peak Yosef 1.93 m/s [ 1.00 - 1.70 ] LVIDd 2D 4.68 cm [ 3.80 - 5.20 ] AV Peak PG 15 mmHg LVIDd MM 4.74 cm [ 3.80 - 5.20 ] AV VTI 27.84 cm LVIDs 2D 3.42 cm [ 2.20 - 3.50 ] LVOT Diam 2.00 cm [ 1.70 - 2.10 ] LVIDs MM 3.48 cm [ 2.20 - 3.50 ] LVOT Peak Yosef 1.02 m/s [ 0.70 - 1.10 ] LVPWd 2D 0.88 cm [ 0.60 - 0.90 ] LVOT VTI 16.54 cm LVPWd MM 0.88 cm [ 0.60 - 0.90 ] MV E Peak Yosef 0.56 m/s [ 0.60 - 1.30 ] IVSd 2D 0.79 cm [ 0.60 - 0.90 ] MV A Peak Yosef 1.03 m/s [ 1.00 - 1.20 ] IVSd MM 0.91 cm [ 0.60 - 0.90 ] MV Decel Time 168 msec [ 104 - 258 ] LA Dimension MM 3.41 cm [ 2.70 - 3.80 ] PV Peak Yosef 1.29 m/s [ 0.40 - 0.80 ] AoR Diam MM 2.90 cm [ 2.70 - 3.70 ] Lateral E` 0.07 m/s [ 0.10 - 0.15 ] LA Volume Index 16 cc/m2 [ 16 - 34 ] E/E` 8 ACS MM 1.56 cm 2D/MM Value Range Doppler Value Range - FINDINGS: Interpretation Site: Exam was interpreted at [facility]. Left Ventricle: Normal left ventricular systolic function. No focal wall motion abnormalities. Normal left ventricular wall thickness. Left ventricle cavity is upper limits of normal in size. Impaired diastolic relaxation Grade I. Ejection fraction is measured at 63 %. Ejection Fraction is visually estimated to be 60 %. Global Longitudinal Strain is -14 %. GLS is abnormal. Right Ventricle: Normal right ventricular size. Normal right ventricular systolic function. Left Atrium: The left atrium is normal in size. Right Atrium: The right atrium is normal in size. Atrial Septum: Normal atrial septum. Mitral Valve: Normal appearance of the mitral valve. Mild mitral valve regurgitation. There is no hemodynamically significant mitral stenosis by Doppler. Aortic Valve: Mild aortic stenosis. Mean gradient of 8.0 mmHg. Valve area of 1.7 cm2. Aortic cusps appear mildly calcified. Trileaflet aortic valve. Mild aortic valve regurgitation. Tricuspid Valve: Normal appearance of the tricuspid valve. Right ventricular systolic pressure could not be estimated due to inadequate visualization of the tricuspid regurgitation jet. Trivial regurgitation in the tricuspid valve. Pulmonic Valve: Normal appearance of the pulmonic valve. No pulmonic stenosis. Trivial regurgitation in the pulmonic valve. Pericardium: Normal pericardium with no significant pericardial effusion. Aorta: Normal aortic root. IVC: Normal size and normal respiratory collapse consistent with normal right atrial pressure (<5 mmHg). CONCLUSIONS: Normal left ventricular systolic function. No focal wall motion abnormalities. Normal left ventricular wall thickness. Left ventricle cavity is upper limits of normal in size. Impaired diastolic relaxation Grade I. Ejection fraction is measured at 63 %. Ejection Fraction is visually estimated to be 60 %. Global Longitudinal Strain is -14 %. GLS is abnormal. Mild mitral valve regurgitation. Mild aortic stenosis. Mean gradient of 8.0 mmHg. Valve area of 1.7 cm2. Aortic cusps appear mildly calcified. Trileaflet aortic valve. Mild aortic valve regurgitation. Normal sinus rhythm. Electronically Signed By: Johnathan Espino MD 03/29/2025 4:38:20 PM CDT Procedure Note Johnathan Espino MD - 03/29/2025 [facility] [address] [facility] [address] [facility], [address], [place] [address] P:[phone] P:[phone] Echocardiographic Report Patient Name: SHEILA MARTINEZ L : 1960 Study Date: 03/29/2025 2:00:46 PM Gender: F Running Rigger: Location: [facility] Ref Provider: JOHNATHAN ESPINO Height(Cm): 165 BSA: 1.76 Weight(Kg): 67.6 Heart Rate: 78 BP: 138 / 80 Quality: Good Order Provider: JOHNATHAN ESPINO PROCEDURES: Echocardiographic Report: Transthoracic echocardiogram with complete 2D, M-Mode, and color Dopplerexamination. With Strain Analysis. INDICATIONS: NICM, HTN, Diabetes, Systolic Ejection Murmur. MEASUREMENTS: 2D/MM Value Range Doppler ValueRange EF Mod BP 63 % [ 54 - 74 ] MANUEL Vmax 1.65cm2 [ 2.00 - 4.00 ] EF Teich MM 52 % [ 54 - 74 ] AV Mean PG 8mmHg Estimated EF 60 % AV Peak Yosef 1.93m/s [ 1.00 - 1.70 ] LVIDd 2D 4.68 cm [ 3.80 - 5.20 ] AV Peak PG 15mmHg LVIDd MM 4.74 cm [ 3.80 - 5.20 ] AV VTI 27.84cm LVIDs 2D 3.42 cm [ 2.20 - 3.50 ] LVOT Diam 2.00 cm[ 1.70 - 2.10 ] LVIDs MM 3.48 cm [ 2.20 - 3.50 ] LVOT Peak Yosef 1.02m/s [ 0.70 - 1.10 ] LVPWd 2D 0.88 cm [ 0.60 - 0.90 ] LVOT VTI 16.54cm LVPWd MM 0.88 cm [ 0.60 - 0.90 ] MV E Peak Yosef 0.56m/s [ 0.60 - 1.30 ] IVSd 2D 0.79 cm [ 0.60 - 0.90 ] MV A Peak Yosef 1.03m/s [ 1.00 - 1.20 ] IVSd MM 0.91 cm [ 0.60 - 0.90 ] MV Decel Time 168msec [ 104 - 258 ] LA Dimension MM 3.41 cm [ 2.70 - 3.80 ] PV Peak Yosef 1.29m/s [ 0.40 - 0.80 ] AoR Diam MM 2.90 cm [ 2.70 - 3.70 ] Lateral E` 0.07m/s [ 0.10 - 0.15 ] LA Volume Index 16 cc/m2 [ 16 - 34 ] E/E` 8 ACS MM 1.56cm 2D/MM Value Range Doppler ValueRange - FINDINGS: Interpretation Site: Exam was interpreted at [facility]. Left Ventricle: Normal left ventricular systolic function. No focal wall motionabnormalities. Normal left ventricular wall thickness. Left ventricle cavity is upper limits ofnormal in size. Impaired diastolic relaxation Grade I. Ejection fraction is measured at 63%. Ejection Fraction is visually estimated to be 60 %. Global Longitudinal Strain is-14 %. GLS is abnormal. Right Ventricle: Normal right ventricular size. Normal right ventricular systolicfunction. Left Atrium: The left atrium is normal in size. Right Atrium: The right atrium is normal in size. Atrial Septum: Normal atrial septum. Mitral Valve: Normal appearance of the mitral valve. Mild mitral valve regurgitation.There is no hemodynamically significant mitral stenosis by Doppler. Aortic Valve: Mild aortic stenosis. Mean gradient of 8.0 mmHg. Valve area of 1.7 cm2.Aortic cusps appear mildly calcified. Trileaflet aortic valve. Mild aortic valveregurgitation. Tricuspid Valve: Normal appearance of the tricuspid valve. Right ventricular systolicpressure could not be estimated due to inadequate visualization of the tricuspidregurgitation jet. Trivial regurgitation in the tricuspid valve. Pulmonic Valve: Normal appearance of the pulmonic valve. No pulmonic stenosis. Trivialregurgitation in the pulmonic valve. Pericardium: Normal pericardium with no significant pericardial effusion. Aorta: Normal aortic root. IVC: Normal size and normal respiratory collapse consistent with normal rightatrial pressure (<5 mmHg). CONCLUSIONS: Normal left ventricular systolic function. No focal wall motionabnormalities. Normal left ventricular wall thickness. Left ventricle cavity is upper limits ofnormal in size. Impaired diastolic relaxation Grade I. Ejection fraction is measured at 63%. Ejection Fraction is visually estimated to be 60 %. Global Longitudinal Strain is-14 %. GLS is abnormal. Mild mitral valve regurgitation. Mild aortic stenosis. Mean gradient of 8.0 mmHg. Valve area of 1.7 cm2.Aortic cusps appear mildly calcified. Trileaflet aortic valve. Mild aortic valveregurgitation. Normal sinus rhythm. Electronically Signed By: Johnathan Espino MD 03/29/2025 4:38:20 PM CDT Johnathan Espino MD CV ECHO PROCEDURES Final Result * (ABNORMAL) POCT lipid panel (02/23/2025 2:35 PM CDT) Cholesterol, POC 205 <200 MG/DL HDL, POC 100 >=40 mg/dL Triglycerides, POC 259(A) <=149 mg/dL LDL Cholesterol POC 71 <=129 mg/dL Chol/HDL Ratio, POC 7.6 NONE Non-HDL Cholesterol, POC 105 NONE mg/dL Cholesterol Total, POC 205(A) 30 - 199 mg/dL Capillary blood 02/23/2025 2 :35 PM CDT Johnathan Espino MD POINT OF CARE TEST ORDERA BLES Final Result * (ABNORMAL) Comprehensive metabolic panel (07/27/2018 12:01 PM CDT) Glucose 126(H) 65 - 99 mg/dL [facility] [place] Comment: Fasting reference interval For someone without known diabetes, a glucose value >125 mg/dL indicates that they may have diabetes and this should be confirmed with a follow-up test. BUN 13 7 - 25 mg/dL [facility] Creatinine 0.57 0.50 - 1.05 mg/dL [facility] Comment: For patients >49 years of age, the reference limit for Creatinine is approximately 13% higher for people identified as -Finnish. eGFR NON-AFR. KENYAN 101 > OR = 60 mL/min/1 .73m2 [facility] [place] EGFR 118 > OR = 60 mL/min/1 .73m2 [facility] [place] BUN/creat ratio NOT APPLICABLE 6 - 22 (calc) [facility] [place] Sodium 142 135 - 146 mmol/L [facility] [place] Potassium, pl 3.3(L) 3.5 - 5.3 mmol/L [facility] [place] Chloride 102 98 - 110 mmol/L [facility] [place] CO2 28 20 - 32 mmol/L [facility] [place] Calcium 9.9 8.6 - 10.4 mg/dL [facility] [place] Protein, sr 6.7 6.1 - 8.1 g/dL [facility] [place] Albumin 4.7 3.6 - 5.1 g/dL [facility] [place] GLOBULIN 2.0 1.9 - 3.7 g/dL (calc) [facility] [place] Alb/glob ratio 2.4 1.0 - 2.5 (calc) [facility] [place] Bilirubin, total 0.8 0.2 - 1.2 mg/dL [facility] [place] Alk phos 84 33 - 130 U/L [facility] [place] AST 18 10 - 35 U/L [facility] [place] ALT (SGPT) 19 6 - 29 U/L [facility] [place] 07/27/2018 12:0 1 PM CDT 07/27/2018 12:01 PM CDT Narrative Resulting Agency Comment Performing Organization Information: Site ID: [place] Name: [facility] Address: [id number] [place] [address] [place] [id number] Director: Berlin Cook D.O., MPH us Denise Meza MD LAB BLOOD ORDERABLES Final Resu lt [facility] [place] * Dexa Axial Skeleton Bone Density 1 or 2 Site (03/08/2015 2:17 PM CDT) Anatomical Region Laterality Modality Body N/A Radiographic Zakia ging 03/08/2015 2:17 PM CDT Narrative 03/08/2015 3:46 PM CDT MANUEL ROMERO M.D. GEMMA COLLIER M.D. FINAL REPORT The radiology attending physician has personally reviewed this study, and has reviewed and/or edited this written report and agrees with it. EXAMINATION: BONE DENSITOMETRY OF THE SPINE AND HIP DATE OF STUDY: 03/08/2015 HISTORY: 54-year-old postmenopausal woman with hysterectomy and bilateral salpingo-oophorectomy at the age of [age] years old, with rheumatoid arthritis on chronic corticosteroid therapy. She is being treated with estrogen replacement, calcium pills, and vitamin D. Evaluate bone mineral density. Additional risk factors for fracture: none. FINDINGS (SPINE): The bone mineral density of L1-L4 was assessed by dual-energy x-ray absorptiometry. The average bone mineral density within this region is 1.149 gm/sq-cm. This is 2.1 standard deviations above the mean of the average bone mineral density for age- and gender-matched subjects (the Z-score). It is 0.9 standard deviations above the mean peak bone mineral density in young adults (the T-score). FINDINGS (FEMORAL NECK): The bone mineral density of the left femoral neck was assessed by dual-energy x-ray absorptiometry. The average bone mineral density within the femoral neck region is 0.899 gm/sq-cm. This is 1.5 standard deviations above the mean of the average bone mineral density for age- and gender-matched subjects (the Z-score). It is 0.5 standard deviations above the mean peak bone mineral density in young adults (the T-score). FINDINGS (TOTAL HIP): The bone mineral density of the left hip was assessed by dual-energy x-ray absorptiometry. The average bone mineral density within the total hip region is 0.922 gm/sq-cm. This is 0.6 standard deviations above the mean of the average bone mineral density for age- and gender-matched subjects (the Z-score). It is 0.2 standard deviations below the mean peak bone mineral density in young adults (the T-score). SUMMARY OF CURRENT RESULTS: Region BMD T-score Z-score AP Spine (L1-L4) 1.149 0.9 2.1 Femoral Neck (Left) 0.899 0.5 1.5 Total Hip (Left) 0.922 -0.2 0.6 COMPARISON WITH PREVIOUS RESULTS Region Age BMD T-score BMD Change BMD Change Exam Date g/cm2 vs Baseline vs Previous AP Spine (L1-L4) 03/08/2015 54 1.149 0.9 -4.1%* -3.6%* 10/17/2011 51 1.192 1.3 -0.5% -0.5% 08/03/2009 49 1.198 1.4 Femoral Neck(Left) 03/08/2015 54 0.899 0.5 1.8% 4.5%* 10/17/2011 51 0.860 0.1 -2.6% -2.6% 08/03/2009 49 0.883 0.3 Total Hip(Left) 03/08/2015 54 0.922 -0.2 -2.2% -0.5% 10/17/2011 51 0.927 -0.1 -1.7% -1.7% 08/03/2009 49 0.943 *Denotes significance at 95% confidence level, LSC for AP Spine IMPRESSION: - 1. The bone mineral density of the lumbar spine is normal. There has been a statistically significant decrease in bone mineral density since the baseline examination of 08/03/2009. 2. The bone mineral density of the left femoral neck is normal. There has been no significant change in bone mineral density since the baseline examination of 08/03/2009. 3. The bone mineral density of the left total hip is normal. There has been no significant change in bone mineral density since the baseline examination of 08/03/2009. 4. Overall, the above findings are normal by WHO criteria. 5. Calculation of fracture risk using the FRAX model is not appropriate in certain settings. It was not performed in this patient because the patient met the following condition(s): normal bone density, hormonal therapy. General comments regarding interpretation of bone density measurements: a) In children, premenopausal woman and males under age 50 not at increased risk for fractures only Z-scores, not T-scores are used to indicate risk. A Z-score above -2.0 is defined as within the expected range for age and Z-score at or less than -2.0 is below the expected range for age. A Z-score below the expected range for age in a patient with recent fractures and/or chronic corticosteroid treatment is consistent with a diagnosis of osteoporosis. b) In post menopausal women and males over 50, comparison of the measured bone mineral density with the average value in young normal subjects (the T-score) has been found to be useful in assessing fracture risk. Fracture risk approximately doubles for each 1.0 standard deviation (SD) in individual's hip or spine bone mineral density is below the average value of young normal subjects. The World Health Organization (WHO) has defined T-scores of -1.0 to -2.5 as diagnostic of low bone mass (OSTEOPENIA), and T-scores of -2.5 or lower to be diagnostic of OSTEOPOROSIS, based on the site of lowest bone density. Note that there will be a change in reporting format and reference databases as patients move from the younger population (group a) to the older population (group b) The National Osteoporosis Foundation (www.nof.org) recommends adequate intake of calcium and vitamin D and regular weight-bearing exercise in all patients. They recommend pharmacologic treatment in postmenopausal women and men age 50 and older presenting with any of the followin) Osteoporosis, after appropriate evaluation to exclude secondary causes. 2) A hip or vertebral (clinical or radiographic) fracture, regardless of the bone density. 3) Low bone mass (Osteopenia) and one or more of: other prior fractures, secondary causes associated with high risk of fracture (such as glucocorticoid use or total immobilization), or computed high risk of fracture (10-yr probability of hip fracture >= 3% or a 10-yr probability of any major osteoporosis-related fracture >= 20% based on the U.S.-adapted WHO algorithm), available at http://www.shef.ac.uk/FRAX). Requested By: Dictated By: GEMMA COLLIER M.D. on Mar 08 2015 2:17P This document has been electronically signed by: MANUEL ROMERO M.D. on Mar 08 2015 3:46P [id number] Procedure Note Provider, MD Saumya - 01/26/2017 MANUEL ROMERO M.D. GEMMA COLLIER M.D. FINAL REPORT The radiology attending physician has personally reviewed this study, and has reviewed and/or edited this written report and agrees with it. EXAMINATION: BONE DENSITOMETRY OF THE SPINE AND HIP DATE OF STUDY: 03/08/2015 HISTORY: 54-year-old postmenopausal woman with hysterectomy and bilateral salpingo-oophorectomy at the age of [age] years old, with rheumatoid arthritis on chronic corticosteroid therapy. She is being treated with estrogen replacement, calcium pills, and vitamin D. Evaluate bone mineral density. Additional risk factors for fracture: none. FINDINGS (SPINE): The bone mineral density of L1-L4 was assessed by dual-energy x-ray absorptiometry. The average bone mineral density within this region is 1.149 gm/sq-cm. This is 2.1 standard deviations above the mean of the average bone mineral density for age- and gender-matched subjects (the Z-score). It is 0.9 standard deviations above the mean peak bone mineral density in young adults (the T-score). FINDINGS (FEMORAL NECK): The bone mineral density of the left femoral neck was assessed by dual-energy x-ray absorptiometry. The average bone mineral density within the femoral neck region is 0.899 gm/sq-cm. This is 1.5 standard deviations above the mean of the average bone mineral density for age- and gender-matched subjects (the Z-score). It is 0.5 standard deviations above the mean peak bone mineral density in young adults (the T-score). FINDINGS (TOTAL HIP): The bone mineral density of the left hip was assessed by dual-energy x-ray absorptiometry. The average bone mineral density within the total hip region is 0.922 gm/sq-cm. This is 0.6 standard deviations above the mean of the average bone mineral density for age- and gender-matched subjects (the Z-score). It is 0.2 standard deviations below the mean peak bone mineral density in young adults (the T-score). SUMMARY OF CURRENT RESULTS: Region BMD T-score Z-score AP Spine (L1-L4) 1.149 0.9 2.1 Femoral Neck (Left) 0.899 0.5 1.5 Total Hip (Left) 0.922 -0.2 0.6 COMPARISON WITH PREVIOUS RESULTS Region Age BMD T-score BMD Change BMD Change Exam Date g/cm2 vs Baseline vs Previous AP Spine (L1-L4) 03/08/2015 54 1.149 0.9 -4.1%* -3.6%* 10/17/2011 51 1.192 1.3 -0.5% -0.5% 08/03/2009 49 1.198 1.4 Femoral Neck(Left) 03/08/2015 54 0.899 0.5 1.8% 4.5%* 10/17/2011 51 0.860 0.1 -2.6% -2.6% 08/03/2009 49 0.883 0.3 Total Hip(Left) 03/08/2015 54 0.922 -0.2 -2.2% -0.5% 10/17/2011 51 0.927 -0.1 -1.7% -1.7% 08/03/2009 49 0.943 *Denotes significance at 95% confidence level, LSC for AP Spine IMPRESSION: - 1. The bone mineral density of the lumbar spine is normal. There has been a statistically significant decrease in bone mineral density since the baseline examination of 08/03/2009. 2. The bone mineral density of the left femoral neck is normal. There has been no significant change in bone mineral density since the baseline examination of 08/03/2009. 3. The bone mineral density of the left total hip is normal. There has been no significant change in bone mineral density since the baseline examination of 08/03/2009. 4. Overall, the above findings are normal by WHO criteria. 5. Calculation of fracture risk using the FRAX model is not appropriate in certain settings. It was not performed in this patient because the patient met the following condition(s): normal bone density, hormonal therapy. General comments regarding interpretation of bone density measurements: a) In children, premenopausal woman and males under age 50 not at increased risk for fractures only Z-scores, not T-scores are used to indicate risk. A Z-score above -2.0 is defined as within the expected range for age and Z-score at or less than -2.0 is below the expected range for age. A Z-score below the expected range for age in a patient with recent fractures and/or chronic corticosteroid treatment is consistent with a diagnosis of osteoporosis. b) In post menopausal women and males over 50, comparison of the measured bone mineral density with the average value in young normal subjects (the T-score) has been found to be useful in assessing fracture risk. Fracture risk approximately doubles for each 1.0 standard deviation (SD) in individual's hip or spine bone mineral density is below the average value of young normal subjects. The World Health Organization (WHO) has defined T-scores of -1.0 to -2.5 as diagnostic of low bone mass (OSTEOPENIA), and T-scores of -2.5 or lower to be diagnostic of OSTEOPOROSIS, based on the site of lowest bone density. Note that there will be a change in reporting format and reference databases as patients move from the younger population (group a) to the older population (group b) The National Osteoporosis Foundation (www.nof.org) recommends adequate intake of calcium and vitamin D and regular weight-bearing exercise in all patients. They recommend pharmacologic treatment in postmenopausal women and men age 50 and older presenting with any of the followin) Osteoporosis, after appropriate evaluation to exclude secondary causes. 2) A hip or vertebral (clinical or radiographic) fracture,regardless of the bone density. 3) Low bone mass (Osteopenia) and one or more of: other prior fractures, secondary causes associated with high risk of fracture (such as glucocorticoid use or total immobilization), or computed high risk of fracture (10-yr probability of hip fracture >= 3% or a 10-yr probability of any major osteoporosis-related fracture >= 20% based on the U.S.-adapted WHO algorithm), available at http://www.shef.ac.uk/FRAX). Requested By: Dictated By: GEMMA COLLIER M.D. on Mar 08 2015 2:17P This document has been electronically signed by: MANUEL ROMERO M.D. on Mar 08 2015 3:46P [id number] us Historical Provider IMG DXA PROCEDURES Final Result * COLONOSCOPY REPORT (02/22/2014) Anatomical Region Laterality Modality Other Narrative 02/22/2014 Ordered by an unspecified provider. us Historical Provider GI PROCEDURE ORDERABLES F inal Result from Last 3 Months or Most Recently Relevant to Health Maintenance Insurance MEDICARE [facility] Member Subscriber Plan / Payer (Ef fective 2004-Present) Name:Sheila Martinez Relation to Subscriber:Self Name:Sheila Martinez Payer ID:[id number] (NAIC) Group ID:[id number] Type:[facility] Address: [address] [place] [id number] MEDICARE [facility] Address: [address] [address] [place] [address] [facility] ACCESS [facility] AET MEDICARE GOLD [facility] ACCESS Care Teams Wire Wrapper Machine Operator Relationship Specialty Start Date End Date Luis Finch MD PCP - General Family Practice 07/10/23
--- OUTSIDE RECORDS SUMMARY | 2025-04-12 15:15 | XMS_ITS | Encounter Summary ---
Author Organization [facility] Address [address] [place] [address] Phone Care Team Providers Care Sql Tech Name Role Phone Denise Meza MD Primary Care Provider [phone] Wilian Morales MD Primary Care Provider [phone] Luis Finch MD Primary Care Provider [phone] Encounter Details Date Type Department Care Team (Latest Contact Info) Description 09/21/2017 Orders Only WU CONVERSION Scanning, Provider Social History Tobacco Use Types Packs/Day Years Used Date Smoking Tobacco: Never Assessed Comments Unknown Sex and Gender Information Value Date Recorded Sex Assigned at Not on file Legal Sex Female 11:31 PM ZINC SKIMMER Gender Identity Not on file Sexual Orientation Not on file documented as of this encounter Plan of Treatment Not on file documented as of this encounter Procedures Procedure Name Priority Date/Time Associated Diagnosis Comments PULMONARY FUNCTION TEST (PFT) 09/21/2017 12:43 PM ZINC SKIMMER documented in this encounter Results * PULMONARY FUNCTION TEST (PFT) (09/21/2017 12:43 PM ZINC SKIMMER) Anatomical Region Laterality Modality PFT us Provider Scanning PFT ORDERABLES Final Result documented in this encounter Visit Diagnoses Not on filedocumented in this encounter Care Teams Sql Tech Relationship Specialty Start Date End Date Denise Meza MD PCP - General 01/05/17 09/05/18 Wilian Morales MD [address] [place] [address] PCP - General Internal Medicine 09/06/18 07/09/23 Luis Finch MD [address] [place] [address] PCP - General Family Practice 07/10/23 documented as of this encounter
--- OUTSIDE RECORDS SUMMARY | 2025-04-12 15:15 | XMS_ITS | Clinical Summary ---
Author Organization [facility] Address [address] [place] [address] Care Team Providers Care Dust Control Engineer Name Role Phone Denise Meza MD Primary Care Provider Unavail le Source Comments [facility],non-owned Affiliates and Associated Physician Practices is amultiple site organization consisting of ambulatory clinics and hospital sitesin [place], [place], [place] and [place]. This disclosure is being madepursuant to the Care Everywhere program and may not contain all information available regarding this patient. 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 Gender Identity Not on file Sexual Orientation Not on file Plan of Treatment Health Maintenance Due Date Last Done Comments BONE DENSITY TESTING 1960 COLOGUARD (AGES 45-75) - COL ON CA SCREENING 1960 COLON MONITORING 1959 COLONOSCOPY - COLON CA SCREENING 1959 CT COLONOGRAPHY - COLON CA SCREENING 1960 Colorectal Cancer Screening 1960 FIT - COLON CA SCREENING 1959 FLEX SIG - COLON CA SCREENING 1960 LIPID TESTING 1960 MAMMOGRAM 1960 HEPATITIS C SCREENING 03/20/1977 DTAP/TDAP/TD VACCINES (1 - Tdap) 1978 PNEUMOCOCCAL VACCINE 50+ (1 of 1 - PCV) 2009 ZOSTER VACCINE (1 of 2) 2009 COVID-19 VACCINE (1 - 2024-2 5 season) 2024 DEPRESSION SCREENING 10/05/2024 MEDICARE AWV CALENDAR YEAR 2024 INFLUENZA VACCINE (Season Ended) 2025 Respiratory Syncytial Virus (RSV) Vaccine Pt: or over 60 yrs (1 - 1-dose 75+ series) 2034 HEPATITIS B VACCINE Aged Out No longe r eligible based on patient's age to complete this topic HIB VACCINE Aged Out No longer eligi ble based on patient's age to complete this topic HPV VACCINE Aged Out No longer eligi ble based on patient's age to complete this topic MENINGOCOCCAL (Group B) VACC INE SHARED DECISION-MAKING Aged Out No longer eligibl e based on patient's age to complete this topic MENINGOCOCCAL GROUPS A/C/Y/W VACCINE Aged Out No longer eligible b ased on patient's age to complete this topic Insurance MEDICARE [facility] ANTH MEDICARE AET[employer] MEDICARE ADV Care Teams Dust Control Engineer Relationship Specialty Start Date End Date Denise Meza MD PCP - General 06/29/19
--- OUTSIDE RECORDS SUMMARY | 2025-04-12 15:15 | XMS_ITS | Referral Summary ---
Author Organization [facility] Address [address] [place] [address] Care Team Providers Care Employment Officer Name Role Phone Luis Finch MD Primary Care Provider [phone] Encounters Date Type Department Care Team Description 04/03/2025 11:30 AM CDT Ancillary Procedure [facility] Medical [facility] Cardiology [address] [facility] [address] [facility] [address] [place] [phone] Recurrent syncope; Status post placement of implantable loop recorder 03/31/2025 Results Follow-Up [facility] Cardiology [address] [facility] [address] [place] [phone] Johnathan Sánchez MD Transthoracic Echo (TTE) Complete W Doppler/CF 03/29/2025 2:00 PM CDT Ancillary Procedure [facility] Cardiology at [address] [place] [address] NICM (nonischemic cardiomyopathy) (HCC); Hypertension associated with diabetes (HCC); Systolic ejection murmur 02/23/2025 2:30 PM CDT Office Visit [facility] Medical Group Cardiology at [address] [place] [address] Johnathan Sánchez MD Hyperlipidemia associated with type 2 diabetes mellitus (HCC) (Primary Dx); NICM (nonischemic cardiomyopathy) (HCC); Hypertension associated with diabetes (HCC); Recurrent syncope; Obstructive sleep apnea; Systolic ejection murmur 02/20/2025 11:15 AM CDT Ancillary Procedure [facility] Medical Group Cardiology [address] [facility] [address] [facility] [place] [phone] Recurrent syncope; Status post placement of implantable loop recorder from Last 3 Months Allergies Active Allergy Reactions Criticality Noted Date [...] implantable loop record er 07/31/2023 Overview (07/31/2023): [employer] LNQ22 Loop Recorder. Dx; Syncope. DOI 07/31/2023-Fleissner. Cherri Sánchez. Carelink remote. Recurrent syncope 07/10/2023 Preoperative cardiovascular examination 07/25/20 20 Hypokalemia 04/29/2019 Abnormal echocardiogram 09/06/2018 NICM (nonischemic cardiomyopathy) 09/06/2018 Obstructive sleep apnea 09/06/2018 Burning chest pain 09/06/2018 ORO (dyspnea on exertion) 09/06/2018 PVC (premature ventricular contraction) 09/06/20 18 PAC (premature atrial contraction) 09/06/2018 Palpitations 09/06/2018 Bilateral carotid bruits 09/06/2018 Hypertension associated with diabetes 09/06/2018 Hyperlipidemia associated with type 2 diabetes m nga 09/06/2018 Other rheumatoid arthritis w ith rheumatoid [...] syndrome 02/18/2014 Overview (01/09/2017): RESTLESS LEGS SYNDROME Immunizations Immunization Administration Dates Next Due Influenza, Trivalent, IM (MDV) 07/16/2007 Tdap 01/21/2008 Social History Tobacco Use Types Packs/Day Years Used Date Smoking Tobacco: Former Cigarettes Q uit: 09/06/2016 Smokeless Tobacco: Never Tobacco Cessation:Counseling Given: Not Answered Alcohol Use Standard Drinks/Week Comments Yes 1 (1 standard drink = 0.6 oz pur e alcohol) Comments Unknown Sex and Gender Information Value Date Recorded Sex Assigned at Not on file Legal Sex Female 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 Gender Identity Not on file Sexual Orientation Not on file Last Filed Vital Signs Vital Sign Reading Time Taken Comments Blood Pressure 138/80 02/23/2025 3:05 PM CDT Pulse 73 02/23/2025 2:41 PM CDT Temperature 36.7 C (98 F) 11/14/2020 10:38 AM STRIPPER AND TAPER Respiratory Rate 15 07/25/2020 2:16 PM CDT Oxygen Saturation 98% 02/23/2025 2:41 PM CDT Inhaled Oxygen Concentration - - Weight 67.6 kg (149 lb) 02/23/2025 2:41 PM CDT Height 165.1 cm (5' 5) 02/23/2025 2:41 PM CDT Body Mass Index 24.79 02/23/2025 2:41 PM CDT Plan of Treatment Not on file Procedures Procedure Name Priority Date/Time Associated Diagnosis [...] PM CDT Narrative 03/29/2025 4:[address] [facility] Medical Group Cardiology [address], [address], [place] [address] P:[phone] P:[phone] Echocardiographic Report Patient Name: SHEILA MARTINEZ L : 1960 Study Date: 03/29/2025 2:00:46 PM Gender: F Public Health Aide: CALIN Location: [facility] Ref Provider: JOHNATHAN SÁNCHEZ Height(Cm): 165 BSA: 1.76 Weight(Kg): 67.6 Heart Rate: 78 BP: 138 / 80 Quality: Good Order Provider: JOHNATHAN SÁNCHEZ PROCEDURES: Echocardiographic Report: Transthoracic echocardiogram with complete [...] FINDINGS: Interpretation Site: Exam was interpreted at [facility]. Left Ventricle: Normal left ventricular systolic [...] Normal sinus rhythm. Electronically Signed By: Johnathan Sánchez MD 03/29/2025 4:38:20 PM CDT Procedure Note Johnathan Sánchez MD - 03/29/2025 [facility] Medical Group Cardiology [address], [address], [place] [address] P:[phone] P:[phone] Echocardiographic Report Patient Name: JUAN SHEILA, L : 1960 Study Date: 03/29/2025 2:00:46 PM Gender: F Public Health Aide: CALIN Location: [facility] Ref Provider: JOHNATHAN SÁNCHEZ Height(Cm): 165 BSA: 1.76 Weight(Kg): 67.6 Heart Rate: 78 BP: 138 / 80 Quality: Good Order Provider: JOHNATHAN SÁNCHEZ PROCEDURES: Echocardiographic Report: Transthoracic echocardiogram with complete [...] FINDINGS: Interpretation Site: Exam was interpreted at [facility]. Left Ventricle: Normal left ventricular systolic [...] Normal sinus rhythm. Electronically Signed By: Johnathan Sánchez MD 03/29/2025 4:38:20 PM CDT Johnathan Sánchez MD CV ECHO PROCEDURES Final Result * (ABNORMAL) POCT lipid panel (02/23/2025 2:35 PM CDT) Pathologist [facility] Cholesterol, POC 205 <200 MG/DL HDL, POC 100 >=40 mg/dL Triglycerides, POC 259(A) <=149 mg/dL LDL Cholesterol POC 71 <=129 mg/dL Chol/HDL Ratio, POC 7.6 NONE Non-HDL Cholesterol, POC 105 NONE mg/dL Cholesterol Total, POC 205(A) 30 - 199 mg/dL Capillary blood 02/23/2025 2 :35 PM CDT Johnathan Sánchez MD POINT OF CARE TEST ORDERA BLES Final Result * (ABNORMAL) Comprehensive metabolic panel (07/27/2018 12:01 PM CDT) Pathologist [facility] Glucose 126(H) 65 - 99 mg/dL [facility] [place] Comment: Fasting reference interval For someone without known diabetes, a glucose value >125 mg/dL indicates that they may have diabetes and this should be confirmed with a follow-up test. BUN 13 7 - 25 mg/dL [facility] Creatinine 0.57 0.50 - 1.05 mg/dL [facility] Comment: For patients >49 years of age, the reference limit for Creatinine is approximately 13% higher for people identified as -[place]. eGFR NON-AFR. TOGOLESE 101 > OR = 60 mL/min/1 .73m2 [facility] EGFR 118 > OR = 60 mL/min/1 .73m2 [facility] BUN/creat ratio NOT APPLICABLE 6 - 22 (calc) [facility] Sodium 142 135 - 146 mmol/L [facility] Potassium, pl 3.3(L) 3.5 - 5.3 mmol/L [facility] Chloride 102 98 - 110 mmol/L [facility] CO2 28 20 - 32 mmol/L [facility] Calcium 9.9 8.6 - 10.4 mg/dL [facility] Protein, sr 6.7 6.1 - 8.1 g/dL [facility] Albumin 4.7 3.6 - 5.1 g/dL [facility] GLOBULIN 2.0 1.9 - 3.7 g/dL (calc) [facility] Alb/glob ratio 2.4 1.0 - 2.5 (calc) [facility] Bilirubin, total 0.8 0.2 - 1.2 mg/dL [facility] Alk phos 84 33 - 130 U/L [facility] AST 18 10 - 35 U/L [facility] ALT (SGPT) 19 6 - 29 U/L [facility] 07/27/2018 12:0 1 PM CDT 07/27/2018 12:01 PM CDT Narrative Resulting Agency Comment Performing Organization Information: Site ID: [place] Name: [facility] Address: [address] [place] [address] [place] [phone] Director: Berlin Cook D.O., MPH Denise Meza MD LAB BLOOD ORDERABLES Final Resu lt [facility] [place] * Dexa Axial [...] ROMERO M.D. on Mar 08 2015 3:46P [id number] Procedure Note Provider, MD Saumya - 01/26/2017 [...] ROMERO M.D. on Mar 08 2015 3:46P [id number] us Historical Provider MD DAWSON DXA PROCEDURES Final Result * COLONOSCOPY REPORT (02/22/2014) Anatomical Region Laterality Modality Other Narrative 02/22/2014 Ordered by an unspecified provider. us Historical Provider GI PROCEDURE ORDERABLES F inal Result from Last 3 Months or Most Recently Relevant to Health Maintenance Insurance MEDICARE [facility] ACCESS MEDICARE [facility] ACCESS [facility] TNA MEDICARE GOLD [facility] ACCESS Care Teams Employment Officer Relationship Specialty Start Date End Date Luis Finch MD PCP - General Family Practice 07/10/23
--- OUTSIDE RECORDS SUMMARY | 2025-04-12 15:15 | XMS_ITS | Continuity of Care Document ---
Author Organization [facility] Address [address] [place] [address] [address] [place] [address] Phone Care Team Providers Care Controls Project Engineer Name Role Phone Chapito Kingsley Unavailable Unavailable Advance Directives Directive Yes / No Effective Date File Name No Information Encounters Encounter Description Practice Location Reason(s) For Visit Diagnoses Date Provider Providers Copied on Encounter [facility], [id number] [place] [address] [address] [place], [place], [id number], [place] tel:[phone] [facility] No Information Sep-2 9-200 0 Jasbirsy Edward. [address] , [address], [place], [address], [place]. tel:[phone] Family History Family Member Type Diagnosis Age At Onset No Information Payers Payer name Insurance type Covered republican ID Authoriza tion(s) Mail Handlers Benefit Plan Commercial CI [id number] Social History Type Description Quantity Date Captured Comments Sex Female Smoking Status No Information Chief Complaint And Reason For Visit No Information Reason For Referral Reason For Referral No Information History Of Present Illness Encounter Date Complaint History Of Prese nt Illness No Information Functional Status Date Functional Assessmen t No Information Instructions Date Instruction Additional Infor mation No Information Assessments Type Assessment Date No Information Patient Care Teams Name Effective Dates (start - stop) Status Members No Information
--- OUTSIDE RECORDS SUMMARY | 2025-04-12 15:15 | XMS_ITS | Encounter Summary ---
Author Organization [facility] Healthcare Address [address] [place] [address] Care Team Providers Care Harnessmaker Name Role Phone Luis Finch MD Primary Care Provider [phone] Encounter Details Date Type Department Care Team (Latest Contact Info) Description 03/31/2025 Results Follow-Up [facility] Cardiology [address] [place] [address] Yaakov Sánchez MD [address] [facility] [address] [place], [place] [id number] Transthoracic Echo (TTE) Complete W Doppler/CF Social History Tobacco Use Types Packs/Day Years Used Date Smoking Tobacco: Former Cigarettes Q uit: 09/06/2016 Smokeless Tobacco: Never Alcohol Use Standard Drinks/Week Comments Yes 1 (1 standard drink = 0.6 oz pur e alcohol) Comments Unknown Sex and Gender Information Value Date Recorded Sex Assigned at Not on file 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
--- OUTSIDE RECORDS SUMMARY | 2025-04-12 15:15 | XMS_ITS | Encounter Summary ---
Author Organization [facility] Address [address] [place] [address] Care Team Providers Care Chief Radiologic Technologist Name Role Phone Denise Meza MD Primary Care Provider Unavail le Encounter Details Date Type Department Care Team (Late st Contact Info) Description 04/10/2022 Lab Requisition [facility] DermPath Lab [address] [place] [id number] Indra Godwin MD [address] [place] [address] Social History Tobacco Use Types Packs/Day Years Used Date Smoking Tobacco: Never Assessed Comments Unknown Sex and Gender Information Value Date Recorded Sex Assigned at Not on file 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 Gender Identity Not on file Sexual Orientation Not on file documented as of this encounter Plan of Treatment Not on file documented as of this encounter Procedures Procedure Name Priority Date/Time Associated Diagnosis Comments DERMATOPATHOLOGY Routine 04/09/2022 12:0 0 AM CDT documented in this encounter Results * DERMATOPATHOLOGY (04/09/2022 12:00 AM CDT) Case Report Dermatopathology Report Case: [id number] Authorizing Provider: Indra Godwin MD Collected: 04/09/2022 12:00 AM Ordering Location: [facility] DermPath Lab Received: 04/10/2022 02:49 PM Pathologist: Jessa Recio MD Specimen: Skin, right side nose above bulb 07/11/202 2 1:11 PM CDT DERMATOPATHOLOGY LABORATORY Final Diagnosis Specimen A. SKIN, right side nose above bulb: EPIDERMAL NECROSIS SUGGESTIVE OF EXCORIATION (L98.499) (see comment) 2 1:11 PM CDT DERMATOPATHOLOGY LABORATORY at 1311 CDT Clinical History R/O AK vs dermatitis 2 1:11 PM CDT DERMATOPATHOLOGY LABORATORY Gross Description Specimen A: Received is one formalin filled container labeled with the patient's name and designated right side nose above bulb. The specimen consists of a shave biopsy measuring 6x5x1 mm. Jar 0. 2 1:11 PM T DERMATOPATHOLOGY LABORATORY Microscopic Description Specimen A. SKIN, right side nose above bulb: The epidermis is focally necrotic and covered with a scale-crust. There is fibrin at the base. COMMENT: Given the superficial nature of the biopsy specimen, a deeper dermal process cannot be excluded. 2 1:11 PM T DERMATOPATHOLOGY LABORATORY Disclaimer An external and internal positive and negative controls are appropriate for the histochemical, immunohistochemical and immunofluorescence stain(s) in this case (if any), except where stated explicitly. The performance characteristics of the stain(s) cited in this report were developed and its performance characteristic determined by the Dermatopathology Laboratory at [facility], directed by Dr. Trung Damon. These tests need not be, and therefore are not, approved by the [place] Food and Drug Administration. The tests are used for clinical purposes. Billing Codes Specimen Charges Stain Charges 15034 1 2 1:11 PM CDT DERMATOPATHOLOGY LABORATORY Embedded Images 2 1:11 PM CDT DERMATOPATHOLOGY LABORATORY Pathology/Cytolog y TISSUE SPECIMEN FROM SKIN / Unknown 04/09/2022 04/10/2022 2:49 PM CDT Indra Godwin MD LAB - PATHOLOGY/CYTOLOGY ORD ERABLES Final Result DERMATOPATHOLOGY LABORATORY [facility] - Department of Dermatology [address], [address] [phone] documented in this encounter Visit Diagnoses Not on filedocumented in this encounter Care Teams Chief Radiologic Technologist Relationship Specialty Start Date End Date Denise Meza MD PCP - General 06/29/19 documented as of this encounter
--- OUTSIDE RECORDS SUMMARY | 2025-04-12 15:17 | XMS_ITS | Continuity of Care Document ---
Author Organization [facility] Address [address] [place] [address] [address] [place] [address] Phone Care Team Providers Care Skin Washer Name Role Phone Chapito Kingsley Unavailable Unavailable Advance Directives Directive Yes / No Effective Date File Name No Information Encounters Encounter Description Practice Location Reason(s) For Visit Diagnoses Date Provider Providers Copied on Encounter [facility], [address] [place] [address] [address], [place], [place], [id number], [place] tel:[phone] [facility] [place] No Information Sep-2 9-200 0 Jasbirsy Edward. [address] [facility] , [address], [place], [address], [place]. tel:[phone] Family History Family Member Type Diagnosis Age At Onset No Information Payers Payer name Insurance type Covered democrat ID Authoriza tion(s) Mail Handlers Benefit Plan Commercial CI [id number] Social History Type Description Quantity Date Captured [...]
[2025-04-12 15:22] VITALS: BP 133/77; PULSE 102; RESP 24; TEMP 37.3; O2SAT 99
[2025-04-12] MEDS: IPRATROPIUM 0.5 MG/ALBUTEROL SULFATE 2.5 MG AMPUL.NEB 3 ML INHALATION (15:45)
[2025-04-12 16:15] VITALS: PULSE 98; O2SAT 96
== END 2025-04-12 16:15 | disposition home or self-care (01) ==
PROVIDERS: Emergency Provider Nurse Practitioner Family; PCP Family Medicine
DX: J20.9 Acute bronchitis, unspecified (principal); M32.9 Systemic lupus erythematosus, unspecified; I42.8 Other cardiomyopathies; E11.9 Type 2 diabetes mellitus without complications; K22.70 Barrett's esophagus without dysplasia; E11.42 Type 2 diabetes mellitus with diabetic polyneuropathy; I10 Essential (primary) hypertension; K21.9 Gastro-esophageal reflux disease without esophagitis; G47.33 Obstructive sleep apnea (adult) (pediatric); M19.90 Unspecified osteoarthritis, unspecified site; R06.9 Unspecified abnormalities of breathing; Z87.891 Personal history of nicotine dependence
CPT/HCPCS: 71046; 94640; 96372; 99213; G0463; J2919

== ENCOUNTER 2025-04-25 17:00 | Emergency (ER) | payer MEDICARE, SELFPAY ==
[2025-04-25 17:02] VITALS: BP 116/66; PULSE 80; RESP 16; TEMP 36.6; O2SAT 98
--- OUTSIDE RECORDS SUMMARY | 2025-04-25 17:02 | XMS_ITS | Clinical Summary ---
Author Organization [facility] Address [address] [place] [address] Care Team Providers Care Space Operations Name Role Phone Denise Meza MD Primary Care Provider Unavail le Source Comments [facility],non-owned Affiliates and Associated Physician Practices is amultiple site organization consisting of ambulatory clinics and hospital sitesin [place], [place], [place] and [place]. This disclosure is being madepursuant to the Care Everywhere program and may not contain all information available regarding this patient. 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
--- OUTSIDE RECORDS SUMMARY | 2025-04-25 17:02 | XMS_ITS | Encounter Summary ---
Author Organization [facility] Address [address] [place] [address] Care Team Providers Care Shell Machine Operator Name Role Phone Denise Meza MD Primary Care Provider Unavail le Encounter Details Date Type Department Care Team (Late st Contact Info) Description 04/10/2022 Lab Requisition [facility] DermPath Lab [address] [place] [id number] Indra Godwin MD [address] [place] [address] Social History Tobacco Use Types Packs/Day Years Used Date Smoking Tobacco: Never Assessed Comments Unknown Sex and Gender Information Value Date Recorded Sex Assigned at Not on file 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 Gender Identity Not on file Sexual Orientation Not on file documented as of this encounter Plan of Treatment Not on file documented as of this encounter Procedures Procedure Name Priority Date/Time Associated Diagnosis Comments DERMATOPATHOLOGY Routine 04/09/2022 12:0 0 AM CDT documented in this encounter Results * DERMATOPATHOLOGY (04/09/2022 12:00 AM CDT) Case Report Dermatopathology Report Case: [id number] Authorizing Provider: Indra Godwin MD Collected: 04/09/2022 12:00 AM Ordering Location: [facility] DermPath Lab Received: 04/10/2022 02:49 PM Pathologist: [...] characteristic determined by the Dermatopathology Laboratory at [facility], directed by Dr. Trung Damon. These tests need not be, and therefore are not, approved by the [place] Food and Drug Administration. The tests are used for clinical purposes. Billing Codes Specimen Charges Stain Charges 11194 1 2 1:11 PM CDT DERMATOPATHOLOGY LABORATORY Embedded Images 2 1:11 PM CDT DERMATOPATHOLOGY LABORATORY Pathology/Cytolog y TISSUE SPECIMEN FROM SKIN / Unknown 04/09/2022 04/10/2022 2:49 PM CDT Indra Godwin MD LAB - PATHOLOGY/CYTOLOGY ORD ERABLES Final Result DERMATOPATHOLOGY LABORATORY [facility] - Department of Dermatology [address] [phone] documented in this encounter Visit Diagnoses Not on filedocumented in this encounter Care Teams Shell Machine Operator Relationship Specialty Start Date End Date Denise Meza MD PCP - General 06/29/19 documented as of this encounter
--- OUTSIDE RECORDS SUMMARY | 2025-04-25 17:02 | XMS_ITS | Continuity of Care Document ---
Author Organization [facility] Address [address] [place] [address] [address] [place] [address] Phone Care Team Providers Care Sld Teacher Name Role Phone Chapito Kingsley Unavailable Unavailable Advance Directives Directive Yes / No Effective Date File Name No Information Encounters Encounter Description Practice Location Reason(s) For Visit Diagnoses Date Provider Providers Copied on Encounter [facility], [address] [place] [address] [address], [place], [place], [id number], [place] tel:[phone] [facility] [place] No Information Jun-2 9-200 0 Jasbirsy Edward. [address] , [address], [place], [address], [place]. tel:[phone] Family History Family Member Type Diagnosis Age At Onset No Information Payers Payer name Insurance type Covered democrat ID Authoriza tion(s) Mail Handlers Benefit Plan Commercial CI [id number] Social History Type Description Quantity Date Captured [...]
--- OUTSIDE RECORDS SUMMARY | 2025-04-25 17:02 | XMS_ITS | Clinical Summary ---
Author Organization [facility] Address [address] [place] [address] Care Team Providers Care Ancillary Specialist Name Role Phone Luis Finch MD Primary Care Provider [phone] Allergies Active Allergy Reactions Criticality Noted Date [...] Description 04/03/2025 11:30 AM CDT Ancillary Procedure [facility] Cardiology [address] [facility] [address] [place] [phone] Recurrent syncope; Status post placement of implantable loop recorder 03/31/2025 Results Follow-Up [facility] Cardiology [address] [facility] [address] [place] [phone] Johnathan Sánchez MD Transthoracic Echo (TTE) Complete W Doppler/CF 03/29/2025 2:00 PM CDT Ancillary Procedure [facility] Cardiology at [address] [place] [address] NICM (nonischemic cardiomyopathy) (HCC); Hypertension associated with diabetes (HCC); Systolic ejection murmur 02/23/2025 2:30 PM CDT Office Visit [facility] Cardiology at [address] [place] [address] Johnathan Sánchez MD Hyperlipidemia associated with type 2 diabetes mellitus (HCC) (Primary Dx); NICM (nonischemic cardiomyopathy) (HCC); Hypertension associated with diabetes (HCC); Recurrent syncope; Obstructive sleep apnea; Systolic ejection murmur 02/20/2025 11:15 AM CDT Ancillary Procedure [facility] Cardiology [address] [facility] [address], [place] [address] Recurrent syncope; Status post placement of implantable loop recorder from Last 3 Months Immunizations Immunization Administration Dates Next Due Influenza, Trivalent, IM (MDV) 07/16/2007 Tdap 01/21/2008 Surgical History Surgery Date Site/Laterality Comments OTHER SURGICAL HISTORY SLING URETHROPEXY C/B NON-HEALING TOTAL ABDOMINAL HYSTERECTOMY W/ BILATERAL SALPINGOOPHORECTOMY PAULINA/BSO SALPINGOOPHORECTOMY Salpingo-oophorectomy Bilateral - (Added by TW Conv) [place] TONSILLECTOMY & ADENOIDEC TAL <AGE 12 Tonsillectomy [...] on file Legal Sex Female 11:31 PM REPORT PROGRAMMER Gender Identity Not on file Sexual Orientation Not on file Obstetrics History Last Filed Vital Signs Vital Sign Reading Time Taken Comments Blood Pressure 138/80 02/23/2025 3:05 PM CDT Pulse 73 02/23/2025 2:41 PM CDT Temperature 36.7 C (98 F) 11/14/2020 10:38 AM REPORT PROGRAMMER Respiratory Rate 15 07/25/2020 2:16 PM CDT [...] Visit 65+ 2024 Influenza Vaccine (#1) 2025 , 08/09/2019, 07/24/2018, Additional history exists Lipid Panel [...] associated with type 2 diabetes mellitus (HCC) DEVICE CHECK - REMOTE Routine 02/20/2025 3:04 PM CDT Recurrent syncope Status post placement of implantable loop recorder COMPREHENSIVE METABOLIC PANEL Routine 07/27/2018 12:01 PM [...] PM CDT Narrative 03/29/2025 4:38 PM CDT [facility] Cardiology [address], [address], [place] [address] P:[phone] P:[phone] Echocardiographic Report Patient Name: SHEILA MARTINEZ L : 1960 Study Date: 03/29/2025 2:00:46 PM Gender: F Camp Assistant: CALIN Location: EDW Ref Provider: JOHNATHAN SÁNCHEZ [...] FINDINGS: Interpretation Site: Exam was interpreted at [facility]. Left Ventricle: Normal left ventricular systolic [...] Procedure Note Johnathan Sánchez MD - 03/29/2025 [facility] Cardiology [facility], [address], [place] [address] P:[phone] P:[phone] Echocardiographic Report Patient Name: SHEILA MARTINEZ L : 1960 Study Date: 03/29/2025 2:00:46 PM Gender: F Camp Assistant: CALIN Location: EDW Ref Provider: JOHNATHAN SÁNCHEZ [...] FINDINGS: Interpretation Site: Exam was interpreted at [facility]. Left Ventricle: Normal left ventricular systolic [...] CARE TEST ORDERA BLES Final Result * DEVICE CHECK - REMOTE (02/20/2025 3:04 PM CDT) Anatomical Region Laterality Modality Other Narrative 04/20/2025 5:47 PM CDT Medtronic LNQ22 Loop Recorder. Dx; Syncope. DOI 07/31/2023-Lucio. Jody. Carelink remote. Routine ILR remote. Normal device function. Battery function-good Presenting rhythm: NSR Medications: Amlodipine 5 mg, losartan 25 mg, Toprol-XL 25 mg Counters since last scheduled transmission on 01/09/25. --0 Tachy --0 Kalyan --1 Pause - EGM demonstrates inappropriate detection due to undersensing --0 Symptom --0 AF See scanned report. CareLink remote f/u 04/03/25. Indra Dsouza RN Gucci Valdes MD [facility] CARDI[facility] SERVICES PROC EDURES Final Result * (ABNORMAL) Comprehensive metabolic panel (07/27/2018 12:01 PM CDT) Glucose 126(H) 65 - 99 mg/dL [facility] [...] approximately 13% higher for people identified as -Mosotho. eGFR NON-AFR. FINNISH 101 > OR = 60 mL/min/1 .73m2 [...] Protein, sr 6.7 6.1 - 8.1 g/dL [facility] [place] Albumin 4.7 3.6 - 5.1 g/dL [facility] [place] GLOBULIN 2.0 1.9 - 3.7 g/dL (calc) [facility] [place] Alb/glob ratio 2.4 1.0 - 2.5 (calc) [facility] [place] Bilirubin, total 0.8 0.2 - 1.2 mg/dL [facility] [place] Alk phos 84 33 - 130 U/L [facility] [place] AST 18 10 - 35 U/L [facility] [place] ALT (SGPT) 19 6 - 29 U/L [facility] [place] 07/27/2018 12:0 1 PM CDT 07/27/2018 12:01 PM CDT Narrative Resulting Agency Comment Performing Organization Information: Site ID: [place] Name: [facility] Address: [address] [place] [address] [place] [address] Director: Berlin Cook D.O., MPH Denise Meza MD LAB BLOOD ORDERABLES Final Resu lt [facility] [place] García [place] * Dexa Axial Skeleton Bone Density 1 [...] ROMERO M.D. on Mar 08 2015 3:46P [id number] Procedure Note Provider, MD Saumya - 01/26/2017 [...] ROMERO M.D. on Mar 08 2015 3:46P [id number] us Historical Provider MD LYNCHG DXA PROCEDURES Final Result * COLONOSCOPY REPORT (02/22/2014) Anatomical Region Laterality Modality Other Narrative 02/22/2014 Ordered by an unspecified provider. us Historical Provider GI PROCEDURE ORDERABLES F inal Result from Last 3 Months or Most Recently Relevant to Health Maintenance Insurance MEDICARE [facility] Address: [address] [place] [id number] ANTHEM ACCESS MEDICARE ANTHEM ACCESS [facility] AETNA MEDICARE GOLD Care Teams Ancillary Specialist Relationship Specialty Start Date End Date Luis Finch MD PCP - General Family Practice 07/10/23
--- OUTSIDE RECORDS SUMMARY | 2025-04-25 17:02 | XMS_ITS | Encounter Summary ---
Author Organization [facility] Address [address] [place] [address] Care Team Providers Care Sports Recruiter Name Role Phone Luis Finch MD Primary Care Provider [phone] Encounter Details Date Type Department Care Team (Latest Contact Info) Description 03/31/2025 Results Follow-Up [facility] Cardiology [address] [place] [address] Yaakov Sánchez MD [address] [facility] [address] [place] [address] Transthoracic Echo (TTE) Complete W Doppler/CF Social History Tobacco Use Types Packs/Day Years Used Date Smoking Tobacco: Former Cigarettes Q uit: 09/06/2016 Smokeless Tobacco: Never Alcohol Use Standard Drinks/Week Comments Yes 1 (1 standard drink = 0.6 oz pur e alcohol) Comments Unknown Sex and Gender Information Value Date Recorded Sex Assigned at Not on file Legal Sex Female 11:31 PM 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
--- OUTSIDE RECORDS SUMMARY | 2025-04-25 17:02 | XMS_ITS | Encounter Summary ---
Author Organization [facility] Address [address] [place] [address] Phone Care Team Providers Care Perinatal Instructor Name Role Phone Denise Meza MD Primary Care Provider [phone] Wilian Morales MD Primary Care Provider [phone] Luis Finch MD Primary Care Provider [phone] Encounter Details Date Type Department Care Team (Latest Contact Info) Description 09/21/2017 Orders Only [facility] CONVERSION Scanning, Provider Social History Tobacco Use Types Packs/Day Years Used Date Smoking Tobacco: Never Assessed Comments Unknown Sex and Gender Information Value Date Recorded Sex Assigned at Not on file Legal Sex Female 11:31 PM FITNESS DIRECTOR Gender Identity Not on file Sexual Orientation Not on file documented as of this encounter Plan of Treatment Not on file documented as of this encounter Procedures Procedure Name Priority Date/Time Associated Diagnosis Comments PULMONARY FUNCTION TEST (PFT) 09/21/2017 12:43 PM FITNESS DIRECTOR documented in this encounter Results * PULMONARY FUNCTION TEST (PFT) (09/21/2017 12:43 PM FITNESS DIRECTOR) Anatomical Region Laterality Modality PFT us Provider Scanning PFT ORDERABLES Final Result documented in this encounter Visit Diagnoses Not on filedocumented in this encounter Care Teams Perinatal Instructor Relationship Specialty Start Date End Date Denise Meza MD PCP - General 01/05/17 09/05/18 Wilian Morales MD [address] [place] [address] PCP - General Internal Medicine 09/06/18 07/09/23 Luis Finch MD [address] [place] [address] PCP - General Family Practice 07/10/23 documented as of this encounter
--- OUTSIDE RECORDS SUMMARY | 2025-04-25 17:02 | XMS_ITS | Referral Summary ---
Author Organization [facility] Address [address] [place] [address] Care Team Providers Care Engineering Job Titles Name Role Phone Luis Finch MD Primary Care Provider [phone] Encounters Date Type Department Care Team Description 04/03/2025 11:30 AM CDT Ancillary Procedure [facility] Cardiology [address] [place] [address] [place] [phone] Recurrent syncope; Status post placement of implantable loop recorder 03/31/2025 Results Follow-Up [facility] Cardiology [address] [facility] [address] [place] [address] Johnathan Sánchez MD Transthoracic Echo (TTE) Complete W Doppler/CF 03/29/2025 2:00 PM CDT Ancillary Procedure [facility] Cardiology at [address] [place] [address] NICM (nonischemic cardiomyopathy) (HCC); Hypertension associated with diabetes (HCC); Systolic ejection murmur 02/23/2025 2:30 PM CDT Office Visit [facility] Cardiology at [address] [place] [address] Johnathan Sánchez MD Hyperlipidemia associated with type 2 diabetes mellitus (HCC) (Primary Dx); NICM (nonischemic cardiomyopathy) (HCC); Hypertension associated with diabetes (HCC); Recurrent syncope; Obstructive sleep apnea; Systolic ejection murmur 02/20/2025 11:15 AM CDT Ancillary Procedure [facility]iology [address] [facility] [address] [place] [address] Recurrent syncope; Status post [...] Recurrent syncope 07/10/2023 Preoperative cardiovascular examination 07/25/20 Hypokalemia 04/29/2019 Abnormal echocardiogram 09/06/2018 NICM (nonischemic [...] on file Legal Sex Female 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 Gender Identity Not on file Sexual Orientation Not on file Last Filed Vital Signs Vital Sign Reading Time Taken Comments Blood Pressure 138/80 02/23/2025 3:05 PM CDT Pulse 73 02/23/2025 2:41 PM CDT Temperature 36.7 C (98 F) 11/14/2020 10:38 AM AIRPORT ELECTRICIAN Respiratory Rate 15 07/25/2020 2:16 PM CDT [...] PM CDT Narrative 03/29/2025 4:38 PM CDT [facility] Cardiology [facility], [address], [place] [address] P:[phone] P:[phone] Echocardiographic Report Patient Name: SHEILA MARTINEZ L : 1960 Study Date: 03/29/2025 2:00:46 PM Gender: F Telecommunications Project Manager: CALIN Location: EDW Ref Provider: JOHNATHAN SÁNCHEZ [...] FINDINGS: Interpretation Site: Exam was interpreted at [facility]. Left Ventricle: Normal left ventricular systolic [...] Procedure Note Johnathan Sánchez MD - 03/29/2025 [facility] Cardiology [address] [facility], [address], [place] [address] P:[phone] P:[phone] Echocardiographic Report Patient Name: SHEILA MARTINEZ L : 1960 Study Date: 03/29/2025 2:00:46 PM Gender: F Telecommunications Project Manager: CALIN Location: EDW Ref Provider: JOHNATHAN SÁNCHEZ [...] FINDINGS: Interpretation Site: Exam was interpreted at [facility]. Left Ventricle: Normal left ventricular systolic [...] lipid panel (02/23/2025 2:35 PM CDT) Pathologist [facility] Cholesterol, POC 205 <200 MG/DL HDL, POC [...] LNQ22 Loop Recorder. Dx; Syncope. DOI 07/31/2023-Fleissner. Vera. Carelink remote. Routine ILR remote. Normal device [...] approximately 13% higher for people identified as -Ghanaian. eGFR NON-AFR. ETHIOPIAN 101 > OR = 60 mL/min/1 .73m2 [...] Agency Comment Performing Organization Information: Site ID: [place] Name: [facility] Address: [address] [place] [address] Director: Berlin Cook D.O., MPH us Denise Meza MD LAB BLOOD ORDERABLES Final Resu lt [facility] [place] * Dexa Axial Skeleton [...] ROMERO M.D. on Mar 08 2015 3:46P [id number] Procedure Note Provider, MD Saumya - 01/26/2017 [...] ROMERO M.D. on Mar 08 2015 3:46P [id number] Historical Provider IMG DXA PROCEDURES Final Result * COLONOSCOPY REPORT (02/22/2014) Anatomical Region Laterality Modality Other Narrative 02/22/2014 Ordered by an unspecified provider. Historical Provider GI PROCEDURE ORDERABLES F inal Result from Last 3 Months or Most Recently Relevant to Health Maintenance Insurance [facility]IC[facility] MEDICARE [facility] TNA MEDICARE GOLD Care Teams Engineering Job Titles Relationship Specialty Start Date End Date Luis Finch MD PCP - General Family Practice 07/10/23
--- NOTE | 2025-04-25 17:15 | PC.NURSE ---
told Renetta Ford RN, she's pretty at weak I think she will feel better resting at home. Pt did not tell staff she was leaving and was seen getting in car at front entrance
--- OUTSIDE RECORDS SUMMARY | 2025-04-25 17:23 | XMS_ITS | Clinical Summary ---
Author Organization [facility] Address [address] [place] [address] Care Team Providers Care Power Shovel Operator Name Role Phone Luis Finch MD Primary Care Provider [phone] Allergies Active Allergy Reactions Criticality Noted Date [...] Description 04/03/2025 11:30 AM CDT Ancillary Procedure [facility] Cardiology [address] [facility] [address] [place] [phone] Recurrent syncope; Status post placement of implantable loop recorder 03/31/2025 Results Follow-Up [facility] Cardiology [address] [facility] [address] [place] [phone] Johnathan Sánchez MD Transthoracic Echo (TTE) Complete W Doppler/CF 03/29/2025 2:00 PM CDT Ancillary Procedure [facility] Cardiology at [address] [place] [address] NICM (nonischemic cardiomyopathy) (HCC); Hypertension associated with diabetes (HCC); Systolic ejection murmur 02/23/2025 2:30 PM CDT Office Visit [facility] Cardiology at [address] [place] [address] Johnathan Sánchez MD Hyperlipidemia associated with type 2 diabetes mellitus (HCC) (Primary Dx); NICM (nonischemic cardiomyopathy) (HCC); Hypertension associated with diabetes (HCC); Recurrent syncope; Obstructive sleep apnea; Systolic ejection murmur 02/20/2025 11:15 AM CDT Ancillary Procedure [facility] Cardiology [address] [facility] [address], [place] [address] Recurrent syncope; Status post placement of implantable loop recorder from Last 3 Months Immunizations Immunization Administration Dates Next Due Influenza, Trivalent, IM (MDV) 07/16/2007 Tdap 01/21/2008 Surgical History Surgery Date Site/Laterality Comments OTHER SURGICAL HISTORY SLING URETHROPEXY C/B NON-HEALING TOTAL ABDOMINAL HYSTERECTOMY W/ BILATERAL SALPINGOOPHORECTOMY PAULINA/BSO SALPINGOOPHORECTOMY Salpingo-oophorectomy Bilateral - (Added by TW Conv) [place] TONSILLECTOMY & ADENOIDEC TAL <AGE 12 Tonsillectomy [...] on file Legal Sex Female 11:31 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 Gender Identity Not on file Sexual Orientation Not on file Obstetrics History Last Filed Vital Signs Vital Sign Reading Time Taken Comments Blood Pressure 138/80 02/23/2025 3:05 PM CDT Pulse 73 02/23/2025 2:41 PM CDT Temperature 36.7 C (98 F) 11/14/2020 10:38 AM HANSARD REPORTER Respiratory Rate 15 07/25/2020 2:16 PM CDT [...] PM CDT Narrative 03/29/2025 4:38 PM CDT [facility] Cardiology [address], [address], [place] [address] P:[phone] P:[phone] Echocardiographic Report Patient Name: SHEILA MARTINEZ L : 1960 Study Date: 03/29/2025 2:00:46 PM Gender: F Adjunct Communications Faculty Member: CALIN Location: EDW Ref Provider: JOHNATHAN SÁNCHEZ [...] FINDINGS: Interpretation Site: Exam was interpreted at [facility]. Left Ventricle: Normal left ventricular systolic function. [...] Procedure Note Johnathan Sánchez MD - 03/29/2025 [facility] Cardiology [facility], [address], [place] [address] P:[phone] P:[phone] Echocardiographic Report Patient Name: SHEILA MARTINEZ L : 1960 Study Date: 03/29/2025 2:00:46 PM Gender: F Adjunct Communications Faculty Member: CALIN Location: EDW Ref Provider: JOHNATHAN SÁNCHEZ [...] FINDINGS: Interpretation Site: Exam was interpreted at [facility]. Left Ventricle: Normal left ventricular systolic function. [...] LNQ22 Loop Recorder. Dx; Syncope. DOI 07/31/2023-Lucio. Joyd. Carelink remote. Routine ILR remote. Normal device [...] approximately 13% higher for people identified as -Citizen Of [place]. eGFR NON-AFR. GABONESE 101 > OR = 60 mL/min/1 .73m2 [...] ratio 2.4 1.0 - 2.5 (calc) [facility] [place] Bilirubin, total 0.8 0.2 - 1.2 mg/dL [facility] [place] Alk phos 84 33 - 130 U/L [facility] [place] AST 18 10 - 35 U/L [facility] [place] ALT (SGPT) 19 6 - 29 U/L [facility] [place] 07/27/2018 12:0 1 PM CDT 07/27/2018 12:01 PM CDT Narrative Resulting Agency Comment Performing Organization Information: Site ID: [place] Name: [facility] Address: [address] [place] [address] [place] [address] Director: Berlin Cook D.O., MPH Denise Meza MD LAB BLOOD ORDERABLES Final Resu lt [facility]A - [place] García [place] * Dexa Axial Skeleton Bone Density 1 [...] ROMERO M.D. on Mar 08 2015 3:46P [id number] Procedure Note Provider, MD Saumya - 01/26/2017 [...] at [email or web address]). Requested By: Dictated By: GEMMA CLOLIER M.D. on Mar 08 2015 2:17P This document has been electronically signed by: MANUEL ROMERO M.D. on Mar 08 2015 3:46P [id number] us Historical Provider MD LYNCHG DXA PROCEDURES Final Result * COLONOSCOPY REPORT (02/22/2014) Anatomical Region Laterality Modality Other Narrative 02/22/2014 Ordered by an unspecified provider. us Historical Provider GI PROCEDURE ORDERABLES F inal Result from Last 3 Months or Most Recently Relevant to Health Maintenance Insurance MEDICARE ANTHEM ACCESS MEDICARE ANTHEM ACCESS [facility] AETNA MEDICARE GOLD Care Teams Power Shovel Operator Relationship Specialty Start Date End Date Luis Finch MD PCP - General Family Practice 07/10/23
--- OUTSIDE RECORDS SUMMARY | 2025-04-25 17:23 | XMS_ITS | Continuity of Care Document ---
Author Organization [facility] Address [address] [place] [address] [address] [place] [address] Phone Care Team Providers Care Rn Diabetes Educator Name Role Phone Chapito Kingsley Unavailable Unavailable Advance Directives Directive Yes / No Effective Date File Name No Information Encounters Encounter Description Practice Location Reason(s) For Visit Diagnoses Date Provider Providers Copied on Encounter [facility], [id number] [place] [address] [address], [place], [place], [id number], [place] tel:[phone] [facility] No Information Jun-2 9-200 0 Jasbirsy Edward. [address] [facility] , [address], [place], [address], [place]. tel:[phone] Family History Family Member Type Diagnosis Age At Onset No Information Payers Payer name Insurance type Covered republican ID Authoriza tion(s) Mail Handlers Benefit Plan Commercial CI [id number] Social History Type Description Quantity Date Captured [...]
--- OUTSIDE RECORDS SUMMARY | 2025-04-25 17:23 | XMS_ITS | Encounter Summary ---
Author Organization [facility] Address [address] [facility] [address] Care Team Providers Care Magazine Supervisor Name Role Phone Denise Meza MD Primary Care Provider Unavail le Encounter Details Date Type Department Care Team (Late st Contact Info) Description 04/10/[address] 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 DermPath Lab Received: 04/10/2022 02:49 PM [...] characteristic determined by the Dermatopathology Laboratory at [facility], directed by Dr. Trung Damon. These tests need not be, and therefore are not, approved by the [place] Food and Drug Administration. The tests are used for clinical purposes. Billing Codes Specimen Charges Stain Charges 45372 1 2 1:11 PM CDT DERMATOPATHOLOGY LABORATORY Embedded Images 2 1:11 PM CDT DERMATOPATHOLOGY LABORATORY Pathology/Cytolog y TISSUE SPECIMEN FROM SKIN / Unknown 04/09/2022 04/10/2022 2:49 PM CDT Indra Godwin MD LAB - PATHOLOGY/CYTOLOGY ORD ERABLES Final Result DERMATOPATHOLOGY LABORATORY [facility] - Department of Dermatology [address], [address] [phone] documented in this encounter Visit Diagnoses Not on filedocumented in this encounter Care Teams Magazine Supervisor Relationship Specialty Start Date End Date Denise Meza MD PCP - General 06/29/19 documented as of this encounter
--- OUTSIDE RECORDS SUMMARY | 2025-04-25 17:23 | XMS_ITS | Encounter Summary ---
Author Organization [facility] Healthcare Address [address] [place] [address] Care Team Providers Care Equipment Manager Name Role Phone Luis Finch MD Primary Care Provider [phone] Encounter Details Date Type Department Care Team (Latest Contact Info) Description 03/31/2025 Results Follow-Up [facility] Cardiology [address] [place] [address] Yaakov Sánchez MD [address] [facility] [address] [place] [address] Transthoracic Echo (TTE) Complete W Doppler/CF Social History Tobacco Use Types Packs/Day Years Used Date Smoking Tobacco: Former Cigarettes Q uit: 09/06/2016 Smokeless Tobacco: Never Alcohol Use Standard Drinks/Week Comments Yes 1 (1 standard drink = 0.6 oz pur e alcohol) Comments Unknown Sex and Gender Information Value Date Recorded Sex Assigned at Not on file Legal Sex Female 11: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
--- OUTSIDE RECORDS SUMMARY | 2025-04-25 17:23 | XMS_ITS | Referral Summary ---
Author Organization [facility] Address [address] [place] [address] Care Team Providers Care Color Mixer Name Role Phone Luis Finch MD Primary Care Provider [phone] Encounters Date Type Department Care Team Description 04/03/2025 11:30 AM CDT Ancillary Procedure [facility] Cardiology [address] [place] [address] [place] [phone] Recurrent syncope; Status post placement of implantable loop recorder 03/31/2025 Results Follow-Up [facility] Cardiology [address] [facility] [address] [place] [phone] Johnathan Sánchez MD Transthoracic Echo (TTE) Complete W Doppler/CF 03/29/2025 2:00 PM CDT Ancillary Procedure [facility] Cardiology at [address] [place] [address] NICM (nonischemic cardiomyopathy) (HCC); Hypertension associated with diabetes (HCC); Systolic ejection murmur 02/23/2025 2:30 PM CDT Office Visit [facility] Cardiology at [address] [place] [address] Johnathan Sánchez MD Hyperlipidemia associated with type 2 diabetes mellitus (HCC) (Primary Dx); NICM (nonischemic cardiomyopathy) (HCC); Hypertension associated with diabetes (HCC); Recurrent syncope; Obstructive sleep apnea; Systolic ejection murmur 02/20/2025 11:15 AM CDT Ancillary Procedure [facility] Cardiology [address] [facility] [address] [place] [address] Recurrent syncope; [...] on file Legal Sex Female 11:31 PM FLOOR BROKER Gender Identity Not on file Sexual Orientation Not on file Last Filed Vital Signs Vital Sign Reading Time Taken Comments Blood Pressure 138/80 02/23/2025 3:05 PM CDT Pulse 73 02/23/2025 2:41 PM CDT Temperature 36.7 C (98 F) 11/14/2020 10:38 AM FLOOR BROKER Respiratory Rate 15 07/25/2020 2:16 PM CDT [...] Narrative 03/29/2025 4:[address] [facility] Medical Group Cardiology [facility], [address], [place] [address] P:[phone] P:[phone] Echocardiographic Report Patient Name: SHEILA MARTINEZ L : 1960 Study Date: 03/29/2025 2:00:46 PM Gender: F Senior Financial: CALIN Location: EDW Ref Provider: JOHNATHAN SÁNCHEZ [...] FINDINGS: Interpretation Site: Exam was interpreted at [facility]. Left Ventricle: Normal left ventricular systolic function. [...] Johnathan Sánchez MD - 03/29/2025 [facility] Medical Group Cardiology [address] [facility], [address], [place] [address] P:[phone] P:[phone] Echocardiographic Report Patient Name: SHEILA MARTINEZ L : 1960 Study Date: 03/29/2025 2:00:46 PM Gender: F Senior Financial: CALIN Location: [facility] Ref Provider: JOHNATHAN SÁNCHEZ [...] FINDINGS: Interpretation Site: Exam was interpreted at [facility]. Left Ventricle: Normal left ventricular systolic function. [...] lipid panel (02/23/2025 2:35 PM CDT) Pathologist [facility] Cholesterol, POC 205 <200 MG/DL HDL, POC [...] approximately 13% higher for people identified as -Dominican. eGFR NON-AFR. PRYDEINIG 101 > OR = 60 mL/min/1 .73m2 [...] Site ID: [place] Name: Rebeka Ye Address: [address] [place] [address] Director: Berlin Cook D.O., MPH us Denise [...] ROMERO M.D. on Mar 08 2015 3:46P [id number] Procedure Note Provider, MD Saumya - 01/26/2017 MANEUL ROMERO M.D. GEMMA COLLIER M.D. FINAL REPORT [...] ROMERO M.D. on Mar 08 2015 3:46P [id number] Historical Provider IMG DXA PROCEDURES Final Result * COLONOSCOPY REPORT (02/22/2014) Anatomical Region Laterality Modality Other Narrative 02/22/2014 Ordered by an unspecified provider. Historical Provider GI PROCEDURE ORDERABLES F inal Result from Last 3 Months or Most Recently Relevant to Health Maintenance Insurance MEDICARE [facility] MEDICARE [facility] TNA MEDICARE GOLD Care Teams Color Mixer Relationship Specialty Start Date End Date Luis Finch MD PCP - General Family Practice 07/10/23
--- OUTSIDE RECORDS SUMMARY | 2025-04-25 17:23 | XMS_ITS | Clinical Summary ---
Author Organization [facility] Address [address] [place] [address] Care Team Providers Care Product Specialist Name Role Phone Denise Meza MD Primary Care Provider Unavail le Source Comments [facility],non-owned Affiliates and Associated Physician Practices is amultiple site organization consisting of ambulatory clinics and hospital sitesin [place], [place], [place] and [place]. This disclosure is being madepursuant to the Care Everywhere program and may not contain all information available regarding this patient. Last updated 18.[facility] [employer] Social History Tobacco Use Types Packs/Day Years Used Date Smoking Tobacco: Never Assessed Comments Unknown Sex and Gender Information Value Date Recorded Sex Assigned at Not on file Legal Sex Female 6:28 AM GASKET FORMER Gender Identity Not on file Sexual Orientation [...] age to complete this topic Insurance MEDICARE [facility] ANTH MEDICARE AETNA MEDICARE ADV Care Teams Product Specialist Relationship Specialty Start Date End Date Denise Meza MD PCP - General 06/29/19
--- OUTSIDE RECORDS SUMMARY | 2025-04-25 17:23 | XMS_ITS | Encounter Summary ---
Author Organization [facility] Address [address] [place] [address] Phone Care Team Providers Care Rock Dust Sprayer Name Role Phone Denise Meza MD Primary Care Provider [phone] Wilian Morales MD Primary Care Provider [phone] Luis Finch MD Primary Care Provider [phone] Encounter Details Date Type Department Care Team (Latest Contact Info) Description 09/21/2017 Orders Only [facility] CONVERSION Scanning, Provider Social History Tobacco Use Types Packs/Day Years Used Date Smoking Tobacco: Never Assessed Comments Unknown Sex and Gender Information Value Date Recorded Sex Assigned at Not on file Legal Sex Female 11:31 PM HYDRAULIC OIL TOOL OPERATOR Gender Identity Not on file Sexual Orientation Not on file documented as of this encounter Plan of Treatment Not on file documented as of this encounter Procedures Procedure Name Priority Date/Time Associated Diagnosis Comments PULMONARY FUNCTION TEST (PFT) 09/21/2017 12:43 PM HYDRAULIC OIL TOOL OPERATOR documented in this encounter Results * PULMONARY FUNCTION TEST (PFT) (09/21/2017 12:43 PM HYDRAULIC OIL TOOL OPERATOR) Anatomical Region Laterality Modality PFT us Provider Scanning PFT ORDERABLES Final Result documented in this encounter Visit Diagnoses Not on filedocumented in this encounter Care Teams Rock Dust Sprayer Relationship Specialty Start Date End Date Denise Meza MD PCP - General 01/05/17 09/05/18 Wilian Morales MD [address] [place] [address] PCP - General Internal Medicine 09/06/18 07/09/23 Luis Finch MD [address] [place] [address] PCP - General Family Practice 07/10/23 documented as of this encounter
== END 2025-04-25 17:53 | disposition left against medical advice (07) ==
PROVIDERS: PCP Family Medicine
DX: R69 Illness, unspecified (principal)
CPT/HCPCS: 99199

== ENCOUNTER 2025-04-26 04:20 | Observation (INO) | payer MEDICARE, SELFPAY ==
[2025-04-26] VITALS (14 sets, daily range): BP systolic 108–170; BP diastolic 53–81; PULSE 65–81; RESP 14–30; TEMP 36.2–37; O2SAT 90–99; BMI 23.1
--- NOTE | ~2025-04-26 | CT_ITS ---
EXAMINATION: CT brain wo con DATE: 04/26/2025 07:01 INDICATION: Migraine TECHNIQUE: Computed tomography (CT) of the head was performed without intravenous contrast. The dose- length product was 681.00 mGy-cm. Automated exposure control and iterative reconstruction technique w ere employed. COMPARISON: CT dated 10/10/2022 FINDINGS: Generalized atrophy. There are scattered mild periventricular and subcortical white matter changes, most likely related to small vessel ischemic disease (microangiopathy). No ventriculomegaly or midline shift. Basilar cisterns are patent. No acute intracranial hemorrhage, infarction, mass or mass effect. No ventriculomegaly or midline shift. Paranasal sinuses and mastoids are pneumatized. No depressed skull fractures. IMPRESSION: 1. No acute intracranial abnormality. Reviewed, dictated and finalized at location A.
--- NOTE | ~2025-04-26 | CT_ITS ---
EXAMINATION: CT chest abdomen pelvis w con DATE: 04/26/2025 7:12 CDT INDICATION: Neutropenia. Nausea. Epigastric pain. TECHNIQUE: Computed tomography (CT) of the chest, abdomen, and pelvis was performed without intraveno us contrast. The dose-length product was 584.96 mGy-cm. Automated exposure control and iterative reconstruction technique were employed. COMPARISON: CT dated 05/10/2024 FINDINGS: CHEST CT: Heart size normal. No significant pleural or pericardial effusion. No thoracic lymphadenopathy. No ce ntral pulmonary embolism. No evidence for aneurysm or dissection. Emphysema. There is dependent atele ctasis. There are calcified granulomas. No pneumothorax. No endobronchial lesions. There are changes of anterior cervical fusion and discectomy of the lower cervical spine, partially visualized. ABDOMEN/PELVIS CT: The liver, pancreas, adrenal glands are unremarkable. There is bilateral renal atrophy with cortical thinning. There are calcified granulomas of the spleen. Fatty infiltration of the liver. Nonobstructi ve bowel gas pattern. Normal appendix. Nonobstructive bowel gas pattern. No free air or free fluid. N onobstructive bowel gas pattern. No lymphadenopathy. No significant vascular abnormality. There is a battery pack in the soft tissues overlying the right gluteal muscles. IMPRESSION: 1. No acute abnormality of the chest, abdomen or pelvis. Reviewed, dictated and finalized at location A.
--- NOTE | ~2025-04-26 | XR_ITS ---
EXAMINATION: XR chest 2V 04/26/2025 04:51 INDICATION: Chest pain and vomiting PROCEDURE: 2 view chest COMPARISON: Comparison to multiple prior studies sequentially, with oldest reviewed study dated 07/05. FINDINGS: The lungs are clear. The cardiomediastinal silhouette is within normal limits. There are no pleural effusions. There is no pneumothorax suspected. There is a battery pack overlying the lef t chest. Calcified granuloma left lung base. There are fusion changes partially visualized in the low er cervical spine. The lungs are hyperinflated which is consistent with, but not diagnostic of chroni c obstructive pulmonary disease. IMPRESSION: 1: NO ACUTE CARDIOPULMONARY DISEASE. Reviewed, dictated and finalized at location A.
--- OUTSIDE RECORDS SUMMARY | 2025-04-26 04:22 | XMS_ITS | Encounter Summary ---
Author Organization [facility] Address [address] [place] [address] Phone Care Team Providers Care Senior Qa Analyst Name Role Phone Denise Meza MD Primary Care Provider [phone] Wilian Morales MD Primary Care Provider [phone] Luis Finch MD Primary Care Provider [phone] Encounter Details Date Type Department Care Team (Latest Contact Info) Description 09/21/2017 Orders Only [facility] CONVERSION Scanning, Provider Social History Tobacco Use Types Packs/Day Years Used Date Smoking Tobacco: Never Assessed Comments Unknown Sex and Gender Information Value Date Recorded Sex Assigned at Not on file Legal Sex Female 11:31 PM EMERGENCY MANAGEMENT SYSTEM DIRECTOR Gender Identity Not on file Sexual Orientation Not on file documented as of this encounter Plan of Treatment Not on file documented as of this encounter Procedures Procedure Name Priority Date/Time Associated Diagnosis Comments PULMONARY FUNCTION TEST (PFT) 09/21/2017 12:43 PM EMERGENCY MANAGEMENT SYSTEM DIRECTOR documented in this encounter Results * PULMONARY FUNCTION TEST (PFT) (09/21/2017 12:43 PM EMERGENCY MANAGEMENT SYSTEM DIRECTOR) Anatomical Region Laterality Modality PFT us Provider Scanning PFT ORDERABLES Final Result documented in this encounter Visit Diagnoses Not on filedocumented in this encounter Care Teams Senior Qa Analyst Relationship Specialty Start Date End Date Denise Meza MD PCP - General 01/05/17 09/05/18 Wilian [place] MD [address] [place] [address] PCP - General Internal Medicine 09/06/18 07/09/23 Luis Finch MD [address] [place] [address] PCP - General Family Practice 07/10/23 documented as of this encounter
--- OUTSIDE RECORDS SUMMARY | 2025-04-26 04:22 | XMS_ITS | Continuity of Care Document ---
Author Organization [facility] Address [address] [place] [address] [address] [place] [address] Phone Care Team Providers Care Day Habilitation Supervisor Name Role Phone Chapito Kingsley Unavailable Unavailable Advance Directives Directive Yes / No Effective Date File Name No Information Encounters Encounter Description Practice Location Reason(s) For Visit Diagnoses Date Provider Providers Copied on Encounter [facility], [address] [place] [address] [address], [place], [place], [id number], [place] tel:[phone] [facility] No Information Jun-2 9-200 0 Jasbirsy Edward. [address] [facility] , [address], [place], [address], [place]. tel:[phone] Family History Family Member Type Diagnosis Age At Onset No Information Payers Payer name Insurance type Covered republican ID Authoriza tion(s) Mail Handlers Benefit Plan Commercial CI [id number] Social History Type Description Quantity Date Captured [...]
--- OUTSIDE RECORDS SUMMARY | 2025-04-26 04:22 | XMS_ITS | Encounter Summary ---
Author Organization [facility] Address [address] [facility] [place] [address] Care Team Providers Care Editor Magazine Name Role Phone Denise Meza MD Primary Care Provider Unavail le Encounter Details Date Type Department Care Team (Late st Contact Info) Description 04/10/2022 Lab Requisition [facility] DermPath Lab [address] [facility] [place] [phone] Indra Godwin MD [address] [place] [address] Social History Tobacco Use Types Packs/Day Years Used Date Smoking Tobacco: Never Assessed Comments Unknown Sex and Gender Information Value Date Recorded Sex Assigned at Not on file Legal Sex Female 6:28 AM PUNCH MACHINE HAND Gender Identity Not on file Sexual Orientation Not on file documented as of this encounter Plan of Treatment Not on file documented as of this encounter Procedures Procedure Name Priority Date/Time Associated Diagnosis Comments DERMATOPATHOLOGY Routine 04/09/2022 12:0 0 AM CDT documented in this encounter Results * DERMATOPATHOLOGY (04/09/2022 12:00 AM CDT) Case Report Dermatopathology Report Case: [id number] Authorizing Provider: Indra Godwin MD Collected: 04/09/2022 12:00 AM Ordering Location: [facility] DermPath Lab Received: 04/10/2022 02:49 PM [...] characteristic determined by the Dermatopathology Laboratory at [facility], directed by Dr. Trung Damon. These tests need not be, and therefore are not, approved by the [place] Food and Drug Administration. The tests are used for clinical purposes. Billing Codes Specimen Charges Stain Charges 61032 1 2 1:11 PM CDT DERMATOPATHOLOGY LABORATORY Embedded Images 2 1:11 PM CDT DERMATOPATHOLOGY LABORATORY Pathology/Cytolog y TISSUE SPECIMEN FROM SKIN / Unknown 04/09/2022 04/10/2022 2:49 PM CDT Indra Godwin MD LAB - PATHOLOGY/CYTOLOGY ORD ERABLES Final Result DERMATOPATHOLOGY LABORATORY [facility] - Department of Dermatology [address], [address] [phone] documented in this encounter Visit Diagnoses Not on filedocumented in this encounter Care Teams Editor Magazine Relationship Specialty Start Date End Date Denise Meza MD PCP - General 06/29/19 documented as of this encounter
--- OUTSIDE RECORDS SUMMARY | 2025-04-26 04:22 | XMS_ITS | Clinical Summary ---
Author Organization [facility] Address [address] [facility] [place] [address] Care Team Providers Care Construction Stonemason Name Role Phone Denise Meza MD Primary Care Provider Unavail le Source Comments [facility],non-owned Affiliates and Associated Physician Practices is amultiple site organization consisting of ambulatory clinics and hospital sitesin [place], [place], [place] and [place]. This disclosure is being madepursuant to the Care Everywhere program and may not contain all information available regarding this patient. 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
--- OUTSIDE RECORDS SUMMARY | 2025-04-26 04:23 | XMS_ITS | Encounter Summary ---
Author Organization [facility] Healthcare Address [address] [place] [address] Care Team Providers Care Horizontal Boring Mill Set Up Operator Name Role Phone Luis Finch MD Primary Care Provider [phone] Encounter Details Date Type Department Care Team (Latest Contact Info) Description 03/31/2025 Results Follow-Up [facility] Medical Group Cardiology [address] [place] [address] Yaakov Sánchez MD [address] [facility] [address] [place] [address] Transthoracic Echo (TTE) Complete W Doppler/CF Social History Tobacco Use Types Packs/Day Years Used Date Smoking Tobacco: Former Cigarettes Q uit: 09/06/2016 Smokeless Tobacco: Never Alcohol Use Standard Drinks/Week Comments Yes 1 (1 standard drink = 0.6 oz pur e alcohol) Comments Unknown Sex and Gender Information Value Date Recorded Sex Assigned at Not on file Legal Sex Female 11:31 PM CNP Gender Identity Not on file Sexual Orientation Not on file documented as of this encounter Plan of Treatment Not on file documented as of this encounter Visit Diagnoses Not on filedocumented in this encounter Care Teams Horizontal Boring Mill Set Up Operator Relationship Specialty Start Date End Date Luis Finch MD PCP - General Family Practice 07/10/23 documented as of this encounter
--- OUTSIDE RECORDS SUMMARY | 2025-04-26 04:23 | XMS_ITS | Clinical Summary ---
Author Organization [facility] Address [address] [place] [address] Care Team Providers Care Chocolate Dipper Name Role Phone Luis Finch MD Primary Care Provider [phone] Allergies Active Allergy Reactions Criticality Noted Date [...] Description 04/03/2025 11:30 AM CDT Ancillary Procedure [facility] Cardiology [address] [facility] [address] [place] [phone] Recurrent syncope; Status post placement of implantable loop recorder 03/31/2025 Results Follow-Up [facility] Cardiology [address] [facility] [address] [place] [phone] Johnathan Sánchez MD Transthoracic Echo (TTE) Complete W Doppler/CF 03/29/2025 2:00 PM CDT Ancillary Procedure [facility] Cardiology at [address] [place] [address] NICM (nonischemic cardiomyopathy) (HCC); Hypertension associated with diabetes (HCC); Systolic ejection murmur 02/23/2025 2:30 PM CDT Office Visit [facility] Cardiology at [address] [place] [address] Johnathan Sánchez MD Hyperlipidemia associated with type 2 diabetes mellitus (HCC) (Primary Dx); NICM (nonischemic cardiomyopathy) (HCC); Hypertension associated with diabetes (HCC); Recurrent syncope; Obstructive sleep apnea; Systolic ejection murmur 02/20/2025 11:15 AM CDT Ancillary Procedure [facility] Cardiology [address] [facility] [address], [place] [address] Recurrent syncope; Status post placement of implantable loop recorder from Last 3 Months Immunizations Immunization Administration Dates Next Due Influenza, Trivalent, IM (MDV) 07/16/2007 Tdap 01/21/2008 Surgical History Surgery Date Site/Laterality Comments OTHER SURGICAL HISTORY SLING URETHROPEXY C/B NON-HEALING TOTAL ABDOMINAL HYSTERECTOMY W/ BILATERAL SALPINGOOPHORECTOMY PAULINA/BSO SALPINGOOPHORECTOMY Salpingo-oophorectomy Bilateral - (Added by TW Conv) [place] TONSILLECTOMY & ADENOIDEC TAL <AGE 11 Tonsillectomy [...] on file Legal Sex Female 11:31 PM LAY OUT FORMER Gender Identity Not on file Sexual Orientation Not on file Obstetrics History Last Filed Vital Signs Vital Sign Reading Time Taken Comments Blood Pressure 138/80 02/23/2025 3:05 PM CDT Pulse 73 02/23/2025 2:41 PM CDT Temperature 36.7 C (98 F) 11/14/2020 10:38 AM LAY OUT FORMER Respiratory Rate 15 07/25/2020 2:16 PM CDT [...] PM CDT Narrative 03/29/2025 4:38 PM CDT [facility] Cardiology [address], [address], [place] [address] P:[phone] P:[phone] Echocardiographic Report Patient Name: SHEILA MARTINEZ L : 1960 Study Date: 03/29/2025 2:00:46 PM Gender: F Potato Chip Packaging Machine Operator: CALIN Location: ED[facility] Ref Provider: JOHNATHAN SÁNCHEZ [...] Site: Exam was interpreted at [facility]. Left Ventricle: Normal left ventricular systolic function. [...] Procedure Note Johnathan Sánchez MD - 03/29/2025 [facility] Cardiology [facility], [address], [place] [address] P:[phone] P:[phone] Echocardiographic Report Patient Name: SHEILA MARTINEZ L : 1960 Study Date: 03/29/2025 2:00:46 PM Gender: F Potato Chip Packaging Machine Operator: CALIN Location: [facility] Ref Provider: JOHNATHAN SÁNCHEZ [...] Site: Exam was interpreted at [facility]. Left Ventricle: Normal left ventricular systolic function. [...] approximately 13% higher for people identified as -Trinidadian. eGFR NON-AFR. MALAYSIAN 101 > OR = 60 mL/min/1 .73m2 [...] Alb/glob ratio 2.4 1.0 - 2.5 (calc) [facility] [place] Bilirubin, total 0.8 0.2 - 1.2 mg/dL [facility] [place] Alk phos 84 33 - 130 U/L [facility] [place] AST 18 10 - 35 U/L [facility] [place] ALT (SGPT) 19 6 - 29 U/L [facility] [place] 07/27/2018 12:0 1 PM CDT 07/27/2018 12:01 PM CDT Narrative Resulting Agency Comment Performing Organization Information: Site ID: [place] Name: [facility] Address: [address] [place] [address] [place] [address] Director: Berlin Cook D.O., MPH Denise Meza MD LAB BLOOD ORDERABLES Final Resu lt [facility] - [place] * Dexa Axial Skeleton Bone Density 1 [...] ROMERO M.D. on Mar 08 2015 3:46P [id number] Procedure Note Provider, MD Saumya - 01/26/2017 [...] ROMERO M.D. on Mar 08 2015 3:46P [id number] us Historical Provider MD LYNCHG DXA PROCEDURES Final Result * COLONOSCOPY REPORT (02/22/2014) Anatomical Region Laterality Modality Other Narrative 02/22/2014 Ordered by an unspecified provider. us Historical Provider GI PROCEDURE ORDERABLES F inal Result from Last 3 Months or Most Recently Relevant to Health Maintenance Insurance MEDICARE [facility]IC[facility] AETNA MEDICARE GOLD Care Teams Chocolate Dipper Relationship Specialty Start Date End Date Luis Finch MD PCP - General Family Practice 07/10/23
--- OUTSIDE RECORDS SUMMARY | 2025-04-26 04:23 | XMS_ITS | Referral Summary ---
Author Organization [facility] Address 1 [place] [address] Care Team Providers Care Communications Manager Name Role Phone Luis Finch MD Primary Care Provider [phone] Encounters Date Type Department Care Team Description 04/03/2025 11:30 AM CDT Ancillary Procedure [facility] Cardiology [address] [place] [address] [place] [phone] Recurrent syncope; Status post placement of implantable loop recorder 03/31/2025 Results Follow-Up [facility] Cardiology [address] [facility] [address] [place] [phone] Johnathan Sánchez MD Transthoracic Echo (TTE) Complete W Doppler/CF 03/29/2025 2:00 PM CDT Ancillary Procedure [facility] Cardiology at [address] [place] [address] NICM (nonischemic cardiomyopathy) (HCC); Hypertension associated with diabetes (HCC); Systolic ejection murmur 02/23/2025 2:30 PM CDT Office Visit [facility] Cardiology at [address] [place] [address] Johnathan Sánchez MD Hyperlipidemia associated with type 2 diabetes mellitus (HCC) (Primary Dx); NICM (nonischemic cardiomyopathy) (HCC); Hypertension associated with diabetes (HCC); Recurrent syncope; Obstructive sleep apnea; Systolic ejection murmur 02/20/2025 11:15 AM CDT Ancillary Procedure [facility] Cardiology [address] [facility] [address] [place] [address] Recurrent [...] on file Legal Sex Female 11:31 PM LEAD 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 DEVELOPER Gender Identity Not on file Sexual Orientation Not on file Last Filed Vital Signs Vital Sign Reading Time Taken Comments Blood Pressure 138/80 02/23/2025 3:05 PM CDT Pulse 73 02/23/2025 2:41 PM CDT Temperature 36.7 C (98 F) 11/14/2020 10:38 AM LEAD INFORMATICA DEVELOPER Respiratory Rate 15 07/25/2020 2:16 PM CDT [...] PM CDT Narrative 03/29/2025 4:38 PM CDT [facility] Cardiology [facility], [address], [place] [address] P:[phone] P:[phone] Echocardiographic Report Patient Name: SHEILA MARTINEZ L : 1960 Study Date: 03/29/2025 2:00:46 PM Gender: F Novelty Dipper: CALIN Location: EDW Ref Provider: JOHNATHAN SÁNCHEZ [...] FINDINGS: Interpretation Site: Exam was interpreted at [facility]. Left Ventricle: Normal left ventricular systolic function. [...] Procedure Note Johnathan Sánchez MD - 03/29/2025 [facility] Cardiology [address] [facility], [address], [place] [address] P:[phone] P:[phone] Echocardiographic Report Patient Name: SHEILA MARTINEZ L : 1960 Study Date: 03/29/2025 2:00:46 PM Gender: F Novelty Dipper: CALIN Location: EDW Ref Provider: JOHNATHAN SÁNCHEZ [...] FINDINGS: Interpretation Site: Exam was interpreted at [facility]. Left Ventricle: Normal left ventricular systolic function. [...] lipid panel (02/23/2025 2:35 PM CDT) Pathologist [facility] Cholesterol, POC 205 <200 MG/DL HDL, POC [...] for people identified as -Mosotho. eGFR NON-AFR. TONGAN 101 > OR = 60 mL/min/1 .73m2 [...] Site ID: [place] Name: Rebeka Ye Address: [address] [place] [address] Director: Berlin Cook D.O., MPH us Denise [...] ROMERO M.D. on Mar 08 2015 3:46P [id number] Procedure Note Provider, MD Saumya - 01/26/2017 [...] ROMERO M.D. on Mar 08 2015 3:46P [id number] Historical Provider IMG DXA PROCEDURES Final Result * COLONOSCOPY REPORT (02/22/2014) Anatomical Region Laterality Modality Other Narrative 02/22/2014 Ordered by an unspecified provider. Historical Provider GI PROCEDURE ORDERABLES F inal Result from Last 3 Months or Most Recently Relevant to Health [place] [address] [facility] MEDICARE [facility] TNA MEDICARE GOLD Care Teams Communications Manager Relationship Specialty Start Date End Date Luis Finch MD PCP - General Family Practice 07/10/23
--- NOTE | 2025-04-26 04:27 | ECG_ITS ---
Test Date: 2025-04-26 04:37:38 Measurements Intervals Pierre Rate: 72 P: -43 WA: 159 QRS: 66 QRSD: 90 T: 107 QT: 384 QTc: 423 Interpretive Statements SINUS RHYTHM LOW QRS VOLTAGE IN PRECORDIAL LEADS [QRS DEFLECTION < 1.0 mV IN CHEST LEADS] NONSPECIFIC T-WAVE ABNORMALITY ABNORMAL ECG No previous ECG available for comparison Electronically Signed On 04-26-2025 10:06:36 CDT by Yaakov Sánchez M.D.
[2025-04-26 04:52] LABS: Hematocrit 36.3 % (37.0-47.0); Hemoglobin 11.9 g/dL (12.0-15.0); Immature Granulocyte Percent A 0.6 % (0-0.5); Immature Platelet Fraction Pct 4.4 % (0.9-11.2); Lymphocytes Absolute Auto 0.57 K/mm3 (0.9-3.2); Mean Corpuscular HGB Conc 32.8 g/dl (32-36); Mean Corpuscular Hemoglobin 31.2 pg (26-34); Mean Corpuscular Volume 95.0 fl (80-100); Nucleated Red Blood Cells Absolute Auto 0.000 K/mm3 (0.0-0.012); Nucleated Red Blood Cells Perc 0.0 % (0.0-0.2); Platelet Count Result 86 k/mm3 (150-375); Red Blood Count 3.82 M/mm3 (4.2-5.4)
[2025-04-26 05:10] LABS: White Blood Count 1.8 K/mm3 (4.5-10.0)
[2025-04-26 05:13] LABS: Alanine Aminotransferase 43 U/L (6-35); Albumin Level 3.7 g/dL (3.5-5.1); Alkaline Phosphatase 167 U/L (38-126); Anion Gap 7 mmol/L (4-12); Aspartate Amino Transferase 46 U/L (14-36); Bilirubin,Total 1.2 mg/dL (0.2-1.3); Blood Urea Nitrogen 9 mg/dL (7-17); Calcium 10.0 mg/dL (8.4-10.2); Carbon Dioxide 24 mmol/L (22-30); Chloride 100 mmol/L (98-107); Estimated CRCL calculation 42 ml/min; Estimated Glomerular Filt Rate 52; Glucose 115 mg/dL (65-110); INR 1.1; Lipase 41 U/L (23-300); Potassium 4.3 mmol/L (3.4-5.0); Prothrombin Time 14.3 Seconds (11.1-14.7); Sodium 131 mmol/L (137-145); Total Protein 6.4 g/dL (6.3-8.2)
[2025-04-26 05:14] LABS: Partial Thromboplastin Time 25.8 Seconds (22.3-36.8)
[2025-04-26 05:23] LABS: Troponin I < 0.012 ng/mL (0.000-0.034)
--- OUTSIDE RECORDS SUMMARY | 2025-04-26 05:58 | XMS_ITS | Continuity of Care Document ---
Author Organization Located within [facility] Address [address] [place] [address] [address] [place] [address] Phone Care Team Providers Care Leveler Name Role Phone Chapito Kingsley Unavailable Unavailable Advance Directives Directive Yes / No Effective Date File Name No Information Encounters Encounter Description Practice Location Reason(s) For Visit Diagnoses Date Provider Providers Copied on Encounter [facility], [address] [place] [address] [address], [place], [place], [id number], [place] tel:[phone] [facility] No Information Jun-2 9-200 0 Jasbirsy Edward. [address] [facility] , [address], [place], [address], [place]. tel:[phone] Family History Family Member Type Diagnosis Age At Onset No Information Payers Payer name Insurance type Covered green party ID Authoriza tion(s) Mail Handlers Benefit Plan Commercial CI [id number] Social History Type Description Quantity Date Captured [...]
--- OUTSIDE RECORDS SUMMARY | 2025-04-26 05:58 | XMS_ITS | Clinical Summary ---
Author Organization [facility] Address [address] [place] [address] Care Team Providers Care Rn Obgyn Name Role Phone Denise Meza MD Primary Care Provider Unavail le Source Comments [facility],non-owned Affiliates and Associated Physician Practices is amultiple site organization consisting of ambulatory clinics and hospital sitesin [place], [place], [place] and [place]. This disclosure is being madepursuant to the Care Everywhere program and may not contain all information available regarding this patient. 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
--- OUTSIDE RECORDS SUMMARY | 2025-04-26 05:58 | XMS_ITS | Encounter Summary ---
Author Organization [facility] Address [address] [place] [address] Phone Care Team Providers Care Cdl Dedicated Truck Driver Name Role Phone Denise Meza MD Primary Care Provider [phone] Wilian Morales MD Primary Care Provider [phone] Luis Finch MD Primary Care Provider [phone] Encounter Details Date Type Department Care Team (Latest Contact Info) Description 09/21/2017 Orders Only [facility] CONVERSION Scanning, Provider Social History Tobacco Use Types Packs/Day Years Used Date Smoking Tobacco: Never Assessed Comments Unknown Sex and Gender Information Value Date Recorded Sex Assigned at Not on file Legal Sex Female 11:31 PM TRAINING AND DEVELOPMENT DIRECTOR Gender Identity Not on file Sexual Orientation Not on file documented as of this encounter Plan of Treatment Not on file documented as of this encounter Procedures Procedure Name Priority Date/Time Associated Diagnosis Comments PULMONARY FUNCTION TEST (PFT) 09/21/2017 12:43 PM TRAINING AND DEVELOPMENT DIRECTOR documented in this encounter Results * PULMONARY FUNCTION TEST (PFT) (09/21/2017 12:43 PM TRAINING AND DEVELOPMENT DIRECTOR) Anatomical Region Laterality Modality PFT us Provider Scanning PFT ORDERABLES Final Result documented in this encounter Visit Diagnoses Not on filedocumented in this encounter Care Teams Cdl Dedicated Truck Driver Relationship Specialty Start Date End Date Denise Meza MD PCP - General 01/05/17 09/05/18 Wilian Morales MD [address] [place] [address] PCP - General Internal Medicine 09/06/18 07/09/23 Luis Finch MD [address] [place] [address] PCP - General Family Practice 07/10/23 documented as of this encounter
--- OUTSIDE RECORDS SUMMARY | 2025-04-26 05:58 | XMS_ITS | Encounter Summary ---
Author Organization [facility] Address [address] [facility] [place] [address] Care Team Providers Care Medical Diagnostic Radiographer Name Role Phone Denise Meza MD Primary Care Provider Unavail le Encounter Details Date Type Department Care Team (Late st Contact Info) Description 04/10/2022 Lab Requisition [facility] DermPath Lab [address] [facility] [place] [id number] Indra Godwin MD [address] [place] [address] Social History Tobacco Use Types Packs/Day Years Used Date Smoking Tobacco: Never Assessed Comments Unknown Sex and Gender Information Value Date Recorded Sex Assigned at Not on file Legal Sex Female 6:28 AM 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 SUPPORT 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 Gender Identity Not on file Sexual Orientation Not on file documented as of this encounter Plan of Treatment Not on file documented as of this encounter Procedures Procedure Name Priority Date/Time Associated Diagnosis Comments DERMATOPATHOLOGY Routine 04/09/2022 12:0 0 AM CDT documented in this encounter Results * DERMATOPATHOLOGY (04/09/2022 12:00 AM CDT) Case Report Dermatopathology Report Case: [id number] Authorizing Provider: Indra Godwin MD Collected: 04/09/2022 12:00 AM Ordering Location: [facility] Derm[facility] Lab Received: 04/10/2022 02:49 PM [...] characteristic determined by the Dermatopathology Laboratory at [facility], directed by Dr. Trung Damon. These tests need not be, and therefore are not, approved by the [place] Food and Drug Administration. The tests are used for clinical purposes. Billing Codes Specimen Charges Stain Charges 94909 1 2 1:11 PM CDT DERMATOPATHOLOGY LABORATORY Embedded Images 2 1:11 PM CDT DERMATOPATHOLOGY LABORATORY Pathology/Cytolog y TISSUE SPECIMEN FROM SKIN / Unknown 04/09/2022 04/10/2022 2:49 PM CDT Indra Godwin MD LAB - PATHOLOGY/CYTOLOGY ORD ERABLES Final Result DERMATOPATHOLOGY LABORATORY [facility] - Department of Dermatology [address], [address] [phone] documented in this encounter Visit Diagnoses Not on filedocumented in this encounter Care Teams Medical Diagnostic Radiographer Relationship Specialty Start Date End Date Denise Meza MD PCP - General 06/29/19 documented as of this encounter
--- OUTSIDE RECORDS SUMMARY | 2025-04-26 05:59 | XMS_ITS | Referral Summary ---
Author Organization [facility] Address [address] [place] [address] Care Team Providers Care Paymaster Of Purses Name Role Phone Luis Finch MD Primary Care Provider [phone] Encounters Date Type Department Care Team Description 04/03/2025 11:30 AM CDT Ancillary Procedure [facility] Cardiology [address] [place] [address] [place] [phone] Recurrent syncope; Status post placement of implantable loop recorder 03/31/2025 Results Follow-Up [facility] Cardiology [address] [facility] [address] [place] [phone] Johnathan Sánchez MD Transthoracic Echo (TTE) Complete W Doppler/CF 03/29/2025 2:00 PM CDT Ancillary Procedure [facility] Cardiology at [address] [place] [address] NICM (nonischemic cardiomyopathy) (HCC); Hypertension associated with diabetes (HCC); Systolic ejection murmur 02/23/2025 2:30 PM CDT Office Visit [facility] Cardiology at [address] [place] [address] Johnathan Sánchez MD Hyperlipidemia associated with type 2 diabetes mellitus (HCC) (Primary Dx); NICM (nonischemic cardiomyopathy) (HCC); Hypertension associated with diabetes (HCC); Recurrent syncope; Obstructive sleep apnea; Systolic ejection murmur 02/20/2025 11:15 AM CDT Ancillary Procedure [facility] Cardiology [address] [facility] [address] [place] [address] Recurrent syncope; Status post placement of implantable loop recorder from Last 3 Months Allergies Active Allergy Reactions Criticality Noted Date Comments Alejadnro Inhibitors Cough High Adhesive Tape-Silicones Blisters High [...] on file Legal Sex Female 11:31 PM LAND CHECKER Gender Identity Not on file Sexual Orientation Not on file Last Filed Vital Signs Vital Sign Reading Time Taken Comments Blood Pressure 138/80 02/23/2025 3:05 PM CDT Pulse 73 02/23/2025 2:41 PM CDT Temperature 36.7 C (98 F) 11/14/2020 10:38 AM LAND CHECKER Respiratory Rate 15 07/25/2020 2:16 PM CDT [...] PM CDT Narrative 03/29/2025 4:38 PM CDT [facility] Medical Group Cardiology [facility], [address], [place] [address] P:[phone] P:[phone] Echocardiographic Report Patient Name: SHEILA MARTINEZ L : 1960 Study Date: 03/29/2025 2:00:46 PM Gender: F Automobile Taillight Assembler: CALIN Location: EDW Ref Provider: JOHNATHAN SÁNCHEZ [...] FINDINGS: Interpretation Site: Exam was interpreted at [facility]. Left Ventricle: Normal left ventricular systolic function. [...] Procedure Note Johnathan Sánchez MD - 03/29/2025 [facility] Medical Group Cardiology [address] [facility], [address], [place] [address] P:[phone] P:[phone] Echocardiographic Report Patient Name: SHEILA MARTINEZ L : 1960 Study Date: 03/29/2025 2:00:46 PM Gender: F Automobile Taillight Assembler: CALIN Location: EDW Ref Provider: JOHNATHAN SÁNCHEZ [...] FINDINGS: Interpretation Site: Exam was interpreted at [facility]. Left Ventricle: Normal left ventricular systolic function. [...] lipid panel (02/23/2025 2:35 PM CDT) Pathologist [facility] Cholesterol, POC 205 <200 MG/DL HDL, POC [...] approximately 13% higher for people identified as -Dutch. eGFR NON-AFR. WELSH 101 > OR = 60 mL/min/1 .73m2 [...] Site ID: [place] Name: Rebeka Ye Address: [address] [place] [address] Director: Berlin Cook D.O., MPH us Denise [...] ROMERO M.D. on Mar 08 2015 3:46P [id number] Procedure Note Provider, MD Saumya - 01/26/2017 [...] ROMERO M.D. on Mar 08 2015 3:46P [id number] Historical Provider IMG DXA PROCEDURES Final Result * COLONOSCOPY REPORT (02/22/2014) Anatomical Region Laterality Modality Other Narrative 02/22/2014 Ordered by an unspecified provider. Historical Provider GI PROCEDURE ORDERABLES F inal Result from Last 3 Months or Most Recently Relevant to Health Maintenance [place] [address] [facility] MEDICARE [facility] TNA MEDICARE GOLD Care Teams Paymaster Of Purses Relationship Specialty Start Date End Date Luis Finch MD PCP - General Family Practice 07/10/23
--- OUTSIDE RECORDS SUMMARY | 2025-04-26 05:59 | XMS_ITS | Clinical Summary ---
Author Organization [facility] Address [address] [place] [address] Care Team Providers Care Nuclear Logging Engineer Name Role Phone Luis Finch MD Primary Care Provider [phone] Allergies Active Allergy Reactions Criticality Noted Date [...] Description 04/03/2025 11:30 AM CDT Ancillary Procedure [facility] Cardiology [address] [facility] [address] [place] [phone] Recurrent syncope; Status post placement of implantable loop recorder 03/31/2025 Results Follow-Up [facility] Cardiology [address] [facility] [address] [place] [phone] Johnathan Sánchez MD Transthoracic Echo (TTE) Complete W Doppler/CF 03/29/2025 2:00 PM CDT Ancillary Procedure [facility] Cardiology at [address] [place] [address] NICM (nonischemic cardiomyopathy) (HCC); Hypertension associated with diabetes (HCC); Systolic ejection murmur 02/23/2025 2:30 PM CDT Office Visit [facility] Cardiology at [address] [place] [address] Johnathan Sánchez MD Hyperlipidemia associated with type 2 diabetes mellitus (HCC) (Primary Dx); NICM (nonischemic cardiomyopathy) (HCC); Hypertension associated with diabetes (HCC); Recurrent syncope; Obstructive sleep apnea; Systolic ejection murmur 02/20/2025 11:15 AM CDT Ancillary Procedure [facility] Cardiology [address] [facility] [address], [place] [address] Recurrent syncope; Status post placement of implantable loop recorder from Last 3 Months Immunizations Immunization Administration Dates Next Due Influenza, Trivalent, IM (MDV) 07/16/2007 Tdap 01/21/2008 Surgical History Surgery Date Site/Laterality Comments OTHER SURGICAL HISTORY SLING URETHROPEXY C/B NON-HEALING TOTAL ABDOMINAL HYSTERECTOMY W/ BILATERAL SALPINGOOPHORECTOMY PAULINA/BSO SALPINGOOPHORECTOMY Salpingo-oophorectomy Bilateral - (Added by TW Conv) VT TONSILLECTOMY & ADENOIDEC TAL <AGE 11 Tonsillectomy [...] on file Legal Sex Female 11:31 PM FUEL HANDLER Gender Identity Not on file Sexual Orientation Not on file Obstetrics History Last Filed Vital Signs Vital Sign Reading Time Taken Comments Blood Pressure 138/80 02/23/2025 3:05 PM CDT Pulse 73 02/23/2025 2:41 PM CDT Temperature 36.7 C (98 F) 11/14/2020 10:38 AM FUEL HANDLER Respiratory Rate 15 07/25/2020 2:16 PM CDT [...] PM CDT Narrative 03/29/2025 4:38 PM CDT [facility] Medical Group Cardiology [address], [address], [place] [address] P:[phone] P:[phone] Echocardiographic Report Patient Name: SHEILA MARTINEZ L : 1960 Study Date: 03/29/2025 2:00:46 PM Gender: F Talent Engineer: CALIN Location: EDW Ref Provider: JOHNATHAN SÁNCHEZ [...] FINDINGS: Interpretation Site: Exam was interpreted at [facility]. Left Ventricle: Normal left ventricular systolic function. [...] Procedure Note Johnathan Sánchez MD - 03/29/2025 [facility] Medical [facility] Cardiology [facility], [address], [place] [address] P:[phone] P:[phone] Echocardiographic Report Patient Name: SHEILA MARTINEZ L : 1960 Study Date: 03/29/2025 2:00:46 PM Gender: F Talent Engineer: CALIN Location: EDW Ref Provider: JOHNATHAN SÁNCHEZ [...] FINDINGS: Interpretation Site: Exam was interpreted at [facility]. Left Ventricle: Normal left ventricular systolic function. [...] approximately 13% higher for people identified as -Irish. eGFR NON-AFR. SRI LANKAN 101 > OR = 60 mL/min/1 .73m2 [...] Alb/glob ratio 2.4 1.0 - 2.5 (calc) [facility] [place] Bilirubin, total 0.8 0.2 - 1.2 mg/dL [facility] [place] Alk phos 84 33 - 130 U/L [facility] AST 18 10 - 35 U/L [facility] [place] ALT (SGPT) 19 6 - 29 U/L [facility] [place] 07/27/2018 12:0 1 PM CDT 07/27/2018 12:01 PM CDT Narrative Resulting Agency Comment Performing Organization Information: Site ID: [place] Name: [facility] Address: [address] [place] [address] [place] [address] Director: Berlin Cook D.O., MPH Denise Meza MD LAB BLOOD ORDERABLES Final Resu lt [facility] - [place] * Dexa Axial Skeleton Bone Density 1 [...] ROMERO M.D. on Mar 08 2015 3:46P [id number] Procedure Note Provider, MD Saumya - 01/26/2017 [...] ROMERO M.D. on Mar 08 2015 3:46P [id number] us Historical Provider MD LYNCHG DXA PROCEDURES Final Result * COLONOSCOPY REPORT (02/22/2014) Anatomical Region Laterality Modality Other Narrative 02/22/2014 Ordered by an unspecified provider. us Historical Provider GI PROCEDURE ORDERABLES F inal Result from Last 3 Months or Most Recently Relevant to Health Maintenance Insurance MEDICARE ANTHEM ACCESS MEDICARE ANTHEM ACCESS [facility] AETNA MEDICARE GOLD Care Teams Nuclear Logging Engineer Relationship Specialty Start Date End Date Luis Finch MD PCP - General Family Practice 07/10/23
--- OUTSIDE RECORDS SUMMARY | 2025-04-26 05:59 | XMS_ITS | Encounter Summary ---
Author Organization [facility] Address [address] [place] [address] Care Team Providers Care Assistant Librarian Name Role Phone Luis Finch MD Primary Care Provider [phone] Encounter Details Date Type Department Care Team (Latest Contact Info) Description 03/31/2025 Results Follow-Up [facility] Group Cardiology [address] [place] [address] Yaakov Sánchez MD [address] [facility] [address] [place] [address] Transthoracic Echo (TTE) Complete W Doppler/CF Social History Tobacco Use Types Packs/Day Years Used Date Smoking Tobacco: Former Cigarettes Q uit: 09/06/2016 Smokeless Tobacco: Never Alcohol Use Standard Drinks/Week Comments Yes 1 (1 standard drink = 0.6 oz pur e alcohol) Comments Unknown Sex and Gender Information Value Date Recorded Sex Assigned at Not on file Legal Sex Female 11:31 PM LOAD CHECKER Gender Identity Not on file Sexual Orientation Not on file documented as of this encounter Plan of Treatment Not on file documented as of this encounter Visit Diagnoses Not on filedocumented in this encounter Care Teams Assistant Librarian Relationship Specialty Start Date End Date Luis Finch MD PCP - General Family Practice 07/10/23 documented as of this encounter
--- NOTE | 2025-04-26 06:31 | ED_ITS ---
HPI - Weakness General Chief complaint: Weakness Stated complaint: weakness, nausea, no appetite, headache x2mo Time Seen by Provider: 04/26/25 05:36 History of Present Illness HPI Narrative: 65-year-old female with a past medical history including SLE and rheumatoid arthritis on methotrexate and Leflunomide. Patient presents to the emergency department with 2 months of symptoms including decreased appetite, night sweats, weight loss, headaches, epigastric abdominal discomfort and cramping abdominal pain. She states she has been to her specialists her primary care doctor in Urgent [facility] and they are not finding any answers for her. She was recently diagnosed with bronchitis and given a breathing treatment and steroids during recent urgent care visit on the 9 of this month. Her is concerned about her health. No recent colonoscopies or endoscopies. No concern previously for any malignancies. Only medication changes she has had recently are starting methotrexate 3 months ago. Symptoms have been progressively worsening and now she feels like she can not eat anything, losing weight and getting diaphoretic with sweats even with minimal activity. Related Data Home Medications ?Medication ?Instructions ?Recorded ?Confirmed ?Last Taken ?Type multivitamin (Multiple Vitamins 1 tablet PO DAILY 07/23/21 06/20/24 07/30/23 History tablet) vitamin B complex (B 1 tablet PO DAILY 07/23/21 06/20/24 07/30/23 History Complex-Vitamin B12 tablet) losartan 25 mg tablet 25 mg PO DAILY 12/03/22 06/20/24 07/31/23 07:00 History amlodipine 10 mg tablet 10 mg PO DAILY 07/30/23 06/20/24 07/31/23 07:00 History metoprolol succinate 25 mg 25 mg PO DAILY 07/30/23 06/20/24 07/31/23 07:00 History tablet,extended release 24 hr abatacept 125 mg/mL subcutaneous mg subcut 04/12/25 Unknown History auto-injector (Orencia ClickJect) Allergies Allergy/AdvReac Type Severity Reaction Status Date / Time adhesive tape Allergy Intermediate Blister Verified 04/26/25 04:21 Review of Systems 2 Review of Systems: As reviewed above in HPI [facility] Past Medical History Medical History Abdominal pain Occult blood in stools Lupus (systemic lupus erythematosus) Nonischemic cardiomyopathy Mild left ventricular enlargement Diastolic dysfunction Echocardiogram 11/2020: Normal left ventricular systolic function, mild concentric left ventricular hypertrophy, impaired diastolic relaxation grade 1, EF of 55-60, mild tricuspid regurgitation Type 2 diabetes mellitus Batres's esophagus Diabetic neuropathy Essential hypertension Lymphocytic colitis Resulting in chronic diarrhea Essential (primary) hypertension Gastroesophageal reflux Lung nodule Microscopic hematuria ANYA (obstructive sleep apnea) Polysomnogram 11/2021: Mild obstructive sleep apnea with a HI 12.1. CPAP with previous settings versus auto PAP 5-15 Postmenopausal Tobacco use Anxiety Arthritis Rheumatoid arthritis (~1999) Surgical History Surgical History History of colonoscopy with polypectomy (06/2022) Tubular adenoma History of esophagogastroduodenoscopy (EGD) (06/2022) Family History Family History Mother Diabetes mellitus Family history of osteoporosis Family history of malignant neoplasm Father Cerebrovascular accident Family history of congestive heart failure Other Family history of cardiovascular disease Family history of mental disorder Hypertension Social History Social History Social History: Code status: Full code Surrogate decision maker: Smoking packs per day: 0.5 Smoking cigarettes per day: 10.0 Years smoked: 40 Smoking pack-years: 20.00 Smoking status: Former smoker Tobacco type: cigarettes Second hand tobacco smoke exposure: No Alcohol intake: current Drinks per week: 3 Alcohol use details: 3 glasses of wine per week Substance use: never Substance use type: does not use Lack of Transportation: No Lack of Food: Never True Current Housing: I Have Housing Concerned About Future Housing: No Difficulty Paying Gas/Electric Bills: No Difficulty Paying for Meds: No Currently Unemployed: No Education: High School Diploma/GED Difficulty w/ Childcare or Family Care: No Living arrangements: with family Additional living arrangements comments: Lives with her . Spiritual care concerns: No Exam 2 Narrative: GENERAL: Ill-appearing, thin and frail, not any respiratory distress HEAD: Normocephalic EYES: Pupils equal and reactive to light. Conjunctival pallor noted bilateral ENT: Nares clear, no rhinorrhea or epistaxis. Mucous membranes moist. NECK: Supple. CHEST: Clear to auscultation, no tachypnea or respiratory distress HEART: [Regular rate and rhythm]. No murmur heard. [Normal peripheral pulses.] ABDOMEN: [Soft, nondistended], tender to palpation in the epigastrium, no palpable masses, [No rigidity or guarding] EXTREMITIES: Normal range of motion. [No edema.] SKIN: Warm, dry, no rash. NEURO: [No focal deficits]. Alert and oriented [x3.] PSYCH: [Normal mood and affect.] Course Vital Signs Vital signs: Vital Signs Temperature 36.2 C L 04/26/25 04:25 Pulse Rate 81 04/26/25 04:25 Respiratory Rate 20 04/26/25 04:25 Blood Pressure 108/53 L 04/26/25 04:25 Pulse Oximetry 99 04/26/25 04:25 Oxygen Delivery Room Air 04/26/25 04:25 Temperature 36.2 C L 04/26/25 04:25 Pulse Rate 65 04/26/25 07:14 Respiratory Rate 14 04/26/25 07:14 Blood Pressure 127/59 L 04/26/25 07:14 Pulse Oximetry 96 04/26/25 07:14 Oxygen Delivery Room Air 04/26/25 04:25 MDM - Weakness MDM Narrative Medical decision making narrative: 65-year-old female with a past medical history including SLE and rheumatoid arthritis on methotrexate and Leflunomide. Patient presents to the emergency department with 2 months of symptoms including decreased appetite, night sweats, weight loss, headaches, epigastric abdominal discomfort and cramping abdominal pain. She states she has been to her specialists her primary care doctor in Urgent Care and they are not finding any answers for her. She was recently diagnosed with bronchitis and given a breathing treatment and steroids during recent urgent care visit on the 9 of this month. Her is concerned about her health. No recent colonoscopies or endoscopies. No concern previously for any malignancies. Only medication changes she has had recently are starting methotrexate 3 months ago. Symptoms have been progressively worsening and now she feels like she can not eat anything, losing weight and getting diaphoretic with sweats even with minimal activity. Patient is a vague constellation is symptoms but given concern for potential malignancy laboratory studies were ordered including CBC, CMP, lipase, urinalysis. Vital signs are normal without any significant blood pressure concerns, no tachycardia, fever or hypoxia. Patient endorses some nauseousness and epigastric discomfort. She is given a L of fluids, Pepcid and Zofran. Laboratory studies show a critical neutropenia with a white count of 1.8, absolute neutrophil count of 0.8. Hemoglobin of 11.9 which is a drop from her baseline. Platelets are also low at 86. Coagulation panel is normal. Electrolytes are largely unremarkable. Mildly elevated creatinine. Normal glucose. LFTs are elevated. Negative troponin. Normal lipase. Chest x-ray shows no cardiopulmonary disease. EKG shows sinus rhythm. Given patient's pancytopenia with elevated liver function panel in the setting of B symptoms and epigastric discomfort malignancy is higher in the differential. CT scans of the abdomen pelvis and chest with contrast were obtained as well as a CT of the head given her complaints of headaches intermittently. Patient care signed out to the oncoming ER physician pending completion of CT scans and final disposition which is likely admission for further workup. Medical Records Attestation: I reviewed the patient's medical records. Lab Data Attestation: I reviewed the patient's lab results. 04/26/25 04:43 04/26/25 04:43 Labs: Lab Results 04/26/25 Range/Units 04:43 WBC 1.8 L* (4.5-10.0) K/mm3 RBC 3.82 L (4.2-5.4) M/mm3 Hgb 11.9 L (12.0-15.0) g/dL Hct 36.3 L (37.0-47.0) % MCV 95.0 (80-100) fl MCH 31.2 (26-34) pg MCHC 32.8 (32-36) g/dl RDW 14.2 (11.5-14.5) % Plt Count 86 L D (150-375) k/mm3 MPV 10.8 H (7.4-10.4) fl Immature Gran % (Auto) 0.6 H (0-0.5) % Neut % (Auto) 45.8 (45.5-73.1) % Lymph % (Auto) 31.8 (18.3-44.2) % Sandoval % (Auto) 10.6 H (2.6-8.5) % Eos % (Auto) 10.1 H (0-4.4) % Baso % (Auto) 1.1 (0.2-1.2) % Lymph # (Auto) 0.57 L (0.9-3.2) K/mm3 [place]oval # (Auto) 0.2 (0.1-0.6) K/mm3 Eos # (Auto) 0.2 (0-0.3) K/mm3 Baso # (Auto) 0.0 (0.0-0.1) K/mm3 Abs Immat Gran (auto) 0.01 (0.00-0.031) K/mm3 Absolute Neuts (auto) 0.8 L (1.3-6.7) K/mm3 Absolute Nucleated RBC 0.000 (0.0-0.012) K/mm3 Nucleated RBC % 0.0 (0.0-0.2) % % Immature Plt Fraction 4.4 (0.9-11.2) % PT 14.3 (11.1-14.7) Seconds INR 1.1 APTT 25.8 (22.3-36.8) Seconds Sodium 131 L (137-145) mmol/L Potassium 4.3 (3.4-5.0) mmol/L Chloride 100 (98-107) mmol/L Carbon Dioxide 24 (22-30) mmol/L Anion Gap 7 (4-12) mmol/L BUN 9 (7-17) mg/dL Creatinine 1.05 H (0.7-1.0) mg/dL Estim Creat Clear Calc 42 ml/min Estimated GFR 52 L (59 - ) Glucose 115 H (65-110) mg/dL Calcium 10.0 (8.4-10.2) mg/dL Total Bilirubin 1.2 (0.2-1.3) mg/dL AST 46 H (14-36) U/L ALT 43 H (6-35) U/L Alkaline Phosphatase 167 H (38-126) U/L Troponin I < 0.012 (0.000-0.034) ng/mL Total Protein 6.4 (6.3-8.2) g/dL Albumin 3.7 (3.5-5.1) g/dL Lipase 41 (23-300) U/L Imaging Data Attestation: I personally reviewed and interpreted this imaging study as follows: My impression: Impressions Chest X-Ray 04/26/25 05:58 IMPRESSION: 1: NO ACUTE CARDIOPULMONARY DISEASE. Discharge Plan Discharge Clinical Impression: Pancytopenia, Weakness Patient Disposition: Still a Patient Condition: Stable Patient Language: Chilean Prescriptions: No Action Orencia ClickJect 125 mg/mL auto-injector SUBCUT albuterol sulfate 90 mcg/actuation HFA aerosol inhaler 2 puff inhalation Q4-6H PRN (Reason: shortness of breath or wheezing) 30 Days Qty: 8.5 0RF (DME) Space Chamber Spacer See Rx Instructions .ROUTE .MEDSUPPLY Qty: 1 0RF Rx Instructions: As directed doxycycline hyclate 100 mg capsule 100 mg PO BID 7 Days Qty: 14 0RF prednisone 20 mg tablet 40 mg PO DAILY 5 Days Qty: 10 0RF losartan 25 mg tablet 25 mg PO DAILY magnesium oxide 500 mg magnesium tablet 500 mg PO DAILY Qty: 90 1RF budesonide 3 mg capsule,delayed,extend.release 9 mg PO DAILY 30 Days Qty: 90 5RF multivitamin [Multiple Vitamins] Tablet 1 tablet PO DAILY vitamin B complex [B Complex-Vitamin B12] Tablet 1 tablet PO DAILY amlodipine 10 mg tablet 10 mg PO DAILY metoprolol succinate 25 mg tablet extended release 24 hr 25 mg PO DAILY atorvastatin 40 mg tablet 40 mg PO DAILY Qty: 90 1RF potassium chloride 20 mEq tablet extended release 20 meq PO TID Qty: 180 1RF prochlorperazine maleate 5 mg tablet 5 mg PO Q8H PRN (Reason: nausea and vomiting) Qty: 20 0RF colestipol 1 gram tablet 1 g PO BID Qty: 60 3RF leflunomide 20 mg tablet 20 mg PO DAILY Qty: 90 1RF hydroxychloroquine [Plaquenil] 200 mg tablet 200 mg PO DAILY Qty: 90 1RF hyoscyamine sulfate 0.375 mg tablet extended release 12 hr See Rx Instructions .ROUTE .COMPLEX Qty: 60 5RF Dose Instruction: TAKE 1 TABLET EVERY 12 HOURS NEEDED FOR ABDOMINAL PAIN Rx Instructions: TAKE 1 TABLET EVERY 12 HOURS NEEDED FOR ABDOMINAL PAIN cholecalciferol (vitamin D3) 1,250 mcg (50,000 unit) tablet 1,250 mcg PO WEEKLY Qty: 14 1RF buspirone 5 mg tablet 5 mg PO BID Qty: 180 1RF duloxetine 60 mg capsule,delayed release(DR/EC) 60 mg PO BID Qty: 180 1RF gabapentin 300 mg capsule See Rx Instructions .ROUTE .COMPLEX Qty: 270 1RF Dose Instruction: TAKE 1 CAPSULE BY MOUTH THREE TIMES A DAY FOR 90 DAYS Rx Instructions: TAKE 1 CAPSULE BY MOUTH THREE TIMES A DAY FOR 90 DAYS trazodone 50 mg tablet See Rx Instructions .ROUTE .COMPLEX Qty: 90 1RF Dose Instruction: TAKE 1 TABLET BY MOUTH EVERY DAY AT BEDTIME Rx Instructions: TAKE 1 TABLET BY MOUTH EVERY DAY AT BEDTIME omeprazole 40 mg capsule,delayed release(DR/EC) See Rx Instructions .ROUTE .COMPLEX Qty: 90 0RF Dose Instruction: TAKE 1 CAPSULE BY MOUTH EVERY DAY Rx Instructions: TAKE 1 CAPSULE BY MOUTH EVERY DAY Follow-up/Referrals: Luis Finch MD [Primary Care Provider] -
[2025-04-26] MEDS: FAMOTIDINE 20 MG/2 ML VIAL IV PUSH (06:49)
[2025-04-26] MEDS: ONDANSETRON INJ 4 MG/2 ML VIAL IV PUSH (06:49)
[2025-04-26] MEDS: LACTATED RINGERS 1,000 ML 999 ML IV CONT (06:49)
--- NOTE | 2025-04-26 07:32 | ECG_ITS ---
Test Date: 2025-04-26 07:40:53 Measurements Intervals Hines Rate: 69 P: -56 NE: 178 QRS: 82 QRSD: 98 T: 119 QT: 389 QTc: 418 Interpretive Statements SINUS RHYTHM LOW QRS VOLTAGE [QRS DEFLECTION < 0.5/1.0 mV IN LIMB/CHEST LEADS] SEPTAL MYOCARDIAL INFARCTION , OF INDETERMINATE AGE [40+ ms Q WAVE IN V1/V2] NONSPECIFIC T-WAVE ABNORMALITY ABNORMAL ECG Electronically Signed On 04-26-2025 10:08:02 CDT by Yaakov Sánchez M.D.
[2025-04-26 08:14] LABS: Troponin I < 0.012 ng/mL (0.000-0.034)
--- NOTE | 2025-04-26 10:39 | PC.NURSE ---
2 cups of coffe with strawberry yogurt ordered
[2025-04-26 10:45] LABS: Add Urine Microscopic? NO; Appearance Urine Clear (Clear); Glucose Urine UA Negative (Negative); Leukocyte Esterase Ur Negative LEU/UL (Negative); Nitrate Urine Negative (Negative); Specific Grav Ur 1.044 (1.001-1.035)
--- NOTE | 2025-04-26 15:01 | P.HP_ITS ---
H&P: HPI History of Present Illness Date/Time: 04/26/25 15:01 Chief Complaint: Malaise Narrative: 65-year-old female presents the hospital with complaints of malaise, nausea vomiting weakness. She states that she has been getting worse over the last few months is no longer able to take care of herself at home. Patient states she started getting sick at the end of February 02 with influenza. Then she was started on methotrexate was found to have pneumonia followed by urinary tract infection. She states that she has progressively gotten weaker and activity intolerance. She states that she stands for long periods of time or take a shower she is extremely dizzy. She is still able to walk and do some of her ADLs. Lab work in the ED shows leukopenia at 1.8, hemoglobin 11.9, platelets of 86, sodium of 131, creatinine of 1.05 which is baseline GFR 52, glucose of 115, AST 46, ALT of 43, alkaline phos of 164, troponin negative, UA negative for infection. Chest x-ray negative for acute process. Head CT negative for acute process. Chest abdomen pelvis negative for acute process. Patient being admitted for thrombocytopenia, the failure to thrive versus methotrexate toxicity Review of Systems Review of Systems: 12 systems were reviewed and are negativ e except for as per HPI. [facility] Past Medical History Medical History Abdominal pain Occult blood in stools Lupus (systemic lupus erythematosus) Nonischemic cardiomyopathy Mild left ventricular enlargement Diastolic dysfunction Echocardiogram 11/2020: Normal left ventricular systolic function, mild concentric left ventricular hypertrophy, impaired diastolic relaxation grade 1, EF of 55-60, mild tricuspid regurgitation Type 2 diabetes mellitus Batres's esophagus Diabetic neuropathy Essential hypertension Lymphocytic colitis Resulting in chronic diarrhea Essential (primary) hypertension Gastroesophageal reflux Lung nodule Microscopic hematuria ANYA (obstructive sleep apnea) Polysomnogram 11/2021: Mild obstructive sleep apnea with a HI 12.1. CPAP with previous settings versus auto PAP 5-15 Postmenopausal Tobacco use Anxiety Arthritis Rheumatoid arthritis (~1999) Surgical History Surgical History History of colonoscopy with polypectomy (06/2022) Tubular adenoma History of esophagogastroduodenoscopy (EGD) (06/2022) Family History Family History Mother Diabetes mellitus Family history of osteoporosis Family history of malignant neoplasm Father Cerebrovascular accident Family history of congestive heart failure Other Family history of cardiovascular disease Family history of mental disorder Hypertension Social History Social History Social History: Code status: Full code Surrogate decision maker: Smoking packs per day: 0.5 Smoking cigarettes per day: 10.0 Years smoked: 40 Smoking pack-years: 20.00 Smoking status: Former smoker Second hand tobacco smoke exposure: No Alcohol intake: current Drinks per week: 3 Alcohol use details: 3 glasses of wine per week Substance use: never Substance use type: does not use Do You Feel Safe in your Home?: Yes Lack of Transportation: No Lack of Food: Never True Current Housing: I Have Housing Concerned About Future Housing: No Difficulty Paying Gas/Electric Bills: No Difficulty Paying for Meds: No Currently Unemployed: No Education: High School Diploma/GED Difficulty w/ Childcare or Family Care: No Living arrangements: with family Additional living arrangements comments: Lives with her . Spiritual care concerns: No Meds Home Medications and Allergies Home Medications ?Medication ?Instructions ?Recorded ?Confirmed ?Type multivitamin (Multiple Vitamins 1 tablet PO DAILY 07/23/21 04/26/25 History tablet) vitamin B complex (B 1 tablet PO DAILY 07/23/21 04/26/25 History Complex-Vitamin B12 tablet) atorvastatin 40 mg tablet 40 mg PO DAILY #90 tabs 09/22/22 04/26/25 Rx potassium chloride 20 mEq 20 meq PO TID #180 tabs 10/02/22 04/26/25 Rx tablet,extended release losartan 25 mg tablet 25 mg PO DAILY 12/03/22 04/26/25 History amlodipine 10 mg tablet 10 mg PO DAILY 07/30/23 04/26/25 History metoprolol succinate 25 mg 25 mg PO DAILY 07/30/23 04/26/25 History tablet,extended release 24 hr budesonide 3 mg 9 mg (3 x 3 mg) PO DAILY 1 month 12/03/23 04/26/25 Rx capsule,delayed,extended release #90 ea magnesium oxide 500 mg PO DAILY #90 tabs 12/07/23 04/26/25 Rx leflunomide 20 mg tablet 20 mg PO DAILY #90 tabs 12/16/23 04/26/25 Rx hydroxychloroquine 200 mg tablet 200 mg PO DAILY #90 tabs 02/04/24 04/26/25 Rx (Plaquenil) hyoscyamine sulfate 0.375 mg See Rx Instructions .Route 02/10/24 04/26/25 Rx tablet,extended release,12 hr .COMPLEX #60 tabs buspirone 5 mg tablet 5 mg PO BID #180 tabs 11/30/24 04/26/25 Rx duloxetine 60 mg capsule,delayed 60 mg PO BID #180 caps 12/09/24 04/26/25 Rx release gabapentin 300 mg capsule See Rx Instructions .Route 01/04/25 04/26/25 Rx .COMPLEX #270 caps trazodone 50 mg tablet See Rx Instructions .Route 03/23/25 04/26/25 Rx .COMPLEX #90 tabs omeprazole 40 mg capsule,delayed See Rx Instructions .Route 04/08/25 04/26/25 Rx release .COMPLEX #90 caps abatacept 125 mg/mL subcutaneous 125 mg subcut WEEKLY 04/12/25 04/26/25 History auto-injector (Orencia ClickJect) albuterol sulfate 90 mcg/actuation 2 puff inhalation Q4-6H PRN 04/12/25 04/26/25 Rx aerosol inhaler shortness of breath or wheezing 30 days #8.5 grams doxycycline hyclate 100 mg capsule 100 mg PO BID 7 days #14 caps 04/12/25 04/26/25 Rx inhalational spacing device (Space #1 ea 04/12/25 04/26/25 Rx Chamber) methotrexate sodium 2.5 mg tablet 5 mg PO WEEKLY 04/26/25 04/26/25 History Allergies Allergy/AdvReac Type Severity Reaction Status Date / Time adhesive tape Allergy Intermediate Blister Verified 04/26/25 04:21 Vital Signs Vital Signs - 24 hr 04/26/25 04:25 04/26/25 05:10 04/26/25 07:14 Temperature 97.2 F L Pulse Rate 81 73 65 Respiratory Rate 20 14 Blood Pressure 108/53 L 127/59 L Pulse Oximetry 99 96 Oxygen Delivery Room Air 04/26/25 07:31 04/26/25 09:01 04/26/25 09:17 Temperature Pulse Rate 72 71 73 Respiratory Rate 20 24 H 30 H Blood Pressure 128/70 152/63 H 146/61 H Pulse Oximetry 94 90 91 Oxygen Delivery 04/26/25 09:32 04/26/25 12:31 Temperature Pulse Rate 77 75 Respiratory Rate 23 H 15 Blood Pressure 136/65 170/79 H Pulse Oximetry 96 Oxygen Delivery Exam Narrative: General: well appearing, appears stated age. HEENT: normocephalic, atraumatic. Mucous membranes moist. EOMI, PERRLA, bilateral sclera anicteric, no conjunctival injection. Neck supple without JVD, lymphadenopathy, or bruit. Respiratory: clear to ascultation bilaterally. No rales/rhonic/wheezes. Cardiovascular: Regular rate and rhythm, normal S1-S2 upon ascultation. No murmurs, rubs, or clicks. PMI is nondisplaced, capillary refill less than 3 second. Abdomen: Soft, round, no pulsatile masses, nondistended and nontender. No rebound, no guarding. No CVA tenderness, no hepatosplenomegaly. Bowel sounds present to all four quadrants. No high pitch or tinkling sounds, resonant to percussion. Extremities: No cyanosis, clubbing, or edema present. Pulses are palpable 2/2. Active ROM to all four extremities. Neuro: Alert and orientated x 4. PERRLA. Cranial nerves 2-12 intact without focal deficit. Skin: Warm, dry, and intact, without rash, erythema, or lesion. Psych: pleasant, cooperative, normal speech, flat affect, no hallucinations, no dysarthia H&P: Results Labs Labs: Short CBC 04/26/25 Range/Units 04:43 WBC 1.8 L* (4.5-10.0) K/mm3 Hgb 11.9 L (12.0-15.0) g/dL Hct 36.3 L (37.0-47.0) % Plt Count 86 L D (150-375) k/mm3 BMP 04/26/25 04:43 Sodium 131 L Potassium 4.3 Chloride 100 Carbon Dioxide 24 BUN 9 Creatinine 1.05 H Glucose 115 H Calcium 10.0 Cardiac Enzymes 04/26/25 04/26/25 Range/Units 04:43 07:36 Troponin I < 0.012 < 0.012 (0.000-0.034) ng/mL Liver Function 04/26/25 Range/Units 04:43 Total Bilirubin 1.2 (0.2-1.3) mg/dL AST 46 H (14-36) U/L ALT 43 H (6-35) U/L Alkaline Phosphatase 167 H (38-126) U/L Albumin 3.7 (3.5-5.1) g/dL Urine 04/26/25 Range/Units 10:37 Urine Color Yellow (Yellow) Urine Appearance Clear (Clear) Urine pH 5.5 (5.0-9.0) Ur Specific [place] 1.044 H (1.001-1.035) Urine Protein Negative (Negative) mg/dL Urine Glucose (UA) Negative (Negative) mg/dL Assessment and Plan Assessment and plan (1) Pancytopenia: Code(s): D61.818 - Other pancytopenia Status: Acute Assessment and Plan: Hematology consulted likely methotrexate induced Okay for diet (2) Weakness: Code(s): R53.1 - Weakness Status: Acute Assessment and Plan: PT OT evaluate and treat (3) Methotrexate toxicity: Code(s): T45.1X1A - Poisoning by antineoplastic and immunosuppressive drugs, accidental (unintentional), initial encounter Status: Acute Assessment and Plan: Failure to thrive versus methotrexate toxicity Hold methotrexate Follow-up with sugar mill worker to see if there another option (4) HTN (hypertension): Qualifiers: Hypertension type: essential hypertension Qualified Code(s): I10 - Essential (primary) hypertension Code(s): I10 - Essential (primary) hypertension Status: Acute (5) Diabetes: Qualifiers: Diabetes mellitus complication status: without complication Diabetes mellitus chcf insulin use: without exterminator helper use Diabetes mellitus type: type 2 Qualified Code(s): E11.9 - Type 2 diabetes mellitus without complications Code(s): E11.9 - Type 2 diabetes mellitus without complications Status: Acute Assessment and Plan: Diabetic diet Accu-Cheks a.c. HS SSI (6) Rheumatoid arthritis: Onset Date: ~1999 Qualifiers: Rheumatoid arthritis location: multiple sites Rheumatoid factor presence: with rheumatoid factor Qualified Code(s): M05.79 - Rheumatoid arthritis with rheumatoid factor of multiple sites without organ or systems involvement Code(s): M06.9 - Rheumatoid arthritis, unspecified Status: Acute Assessment and Plan: Hold methotrexate Continue hydro chloroquine and Arava (7) Elevated liver enzymes: Code(s): R74.8 - Abnormal levels of other serum enzymes Status: Acute Assessment and Plan: Could be related to methotrexate toxicity CMP in the morning (8) Pneumonia: Code(s): J18.9 - Pneumonia, unspecified organism Status: Acute Assessment and Plan: Continue doxy for 2 days Quality VTE Prophylaxis VTE prophylaxis: mechanical ordered If No VTE Prophylaxis Answer both mechanical and pharmacologic: Reason no pharmacologic proph: medical contraindication thrombocytopenia Hospitalist MIPS Advance Care Plan I have confirmed that the patient's Advanced Care Plan is present, code status is documented, or surrogate decision maker is listed in patient medical record.: Yes Medication Reconciliation I have utilized all available resources to obtain, update and review the patients current medications (includes all prescriptions, OTC, herbals, cannabis, and nutritional supplements).: Yes
--- NOTE | 2025-04-26 16:59 | ADMGEN ---
This patient, Jennifer Martinez, was admitted to [facility] S[facility] Room 312-01. Patient/family oriented to hospital policies and general routines including ID bracelet, bed and alarms, visiting hours, pain management, procedures, bathroom and other care routines, personal items, smoking policy, room service/diet, and visiting hours. Information on how to activate the Rapid Response Team has been discussed. Patient/Family are encouraged to report perceived risks to care and to ask questions if they do not understand what they are told or what they should do.
[2025-04-26] MEDS: SODIUM CHLORIDE 0.9% IV 1,000 ML 100 ML IV CONT (17:27)
--- NOTE | 2025-04-26 18:30 | WPDONCCN ---
Assessment and Plan Assessment and plan (1) Pancytopenia: Code(s): D61.818 - Other pancytopenia Status: Acute Assessment and Plan: This is a pleasant 65-year-old female with is history of rheumatoid arthritis and lupus diagnosed 39 years ago has been dealing with upper respiratory infection since February of 2025. Initially she was diagnosed with influenza a infection. Currently she is on antibiotic for bronchitis for last 1 week duration. She has been on methotrexate for 3 months duration. She is also on Plaquenil and Orencia. She came into the hospital with shortness of breath and cough. She has been dealing with malaise and generalized weakness. Labs showed [place]BC [place] 1[place] [id number]. Hemoglobin was slightly low at 11.9. Likely methotrexate induced pancytopenia. The other possibility includes infection related neutropenia and thrombocytopenia. CT scan showed no evidence of hepatosplenomegaly and lymphadenopathy. Liver enzymes were also elevated. Vitamin B12 came back low. I will start her on B12 injection and check iron level. I will check quantitative immunoglobulin level due to frequent infection. I will hold methotrexate which is due tomorrow until ANC improves more than 1000. ANC is 800. No need for Neupogen at this time. I do not see need for bone marrow biopsy testing at this time. I have provided her my office information for follow-up. HPI Data of Consult Date/Time: 04/26/25 18:30 Requesting Physician: Mesfin Jones MD Primary Care Provider: Luis Finch MD Consult Narrative Narrative: Jennifer Martinez is a 65 year old female with history of rheumatoid arthritis and lupus diagnosed 39 years ago along with history of nonischemic cardiomyopathy, type 2 diabetes, peripheral neuropathy, Batres's esophagus, hypertension and GERD admitted to the hospital with upper respiratory infection. Patient has been on methotrexate for the last 3 months duration started when Plaquenil and Orencia was not helping with the hand swelling. She is taking 5 pills once a week basis. She was on methotrexate previously but discontinued. According the patient she has been dealing with infection since February of 2025 initially with diagnosed with influenza and then recently upper respiratory infection. She has been taking antibiotic for the last [address] duration[address] Patient had [address] chest abdomen pelvis performed that showed no acute abnormality in the chest abdomen and pelvis. Liver and spleen was normal. Labs showed WBC of 1.8 with hemoglobin [place] 11[place] [address]. Denies any other complaints. Review of Systems Review of Systems: Twelve point review of system was reviewed [facility] Past Medical History Medical History Abdominal pain Occult blood in stools Lupus (systemic lupus erythematosus) Nonischemic cardiomyopathy Mild left ventricular enlargement Diastolic dysfunction Echocardiogram 11/2020: Normal left ventricular systolic function, mild concentric left ventricular hypertrophy, impaired diastolic relaxation grade 1, EF of 55-60, mild tricuspid regurgitation Type 2 diabetes mellitus Batres's esophagus Diabetic neuropathy Essential hypertension Lymphocytic colitis Resulting in chronic diarrhea Essential (primary) hypertension Gastroesophageal reflux Lung nodule Microscopic hematuria ANYA (obstructive sleep apnea) Polysomnogram 11/2021: Mild obstructive sleep apnea with a HI 12.1. CPAP with previous settings versus auto PAP 5-15 Postmenopausal Tobacco use Anxiety Arthritis Rheumatoid arthritis (~1999) Surgical History Surgical History History of colonoscopy with polypectomy (06/2022) Tubular adenoma History of esophagogastroduodenoscopy (EGD) (06/2022) Family History Family History Mother Diabetes mellitus Family history of osteoporosis Family history of malignant neoplasm Father Cerebrovascular accident Family history of congestive heart failure Other Family history of cardiovascular disease Family history of mental disorder Hypertension Social History Social History Social History: Code status: Full code Surrogate decision maker: Smoking packs per day: 0.5 Smoking cigarettes per day: 10.0 Years smoked: 40 Smoking pack-years: 20.00 Smoking status: Former smoker Second hand tobacco smoke exposure: No Alcohol intake: current Drinks per week: 3 Alcohol use details: 3 glasses of wine per week Substance use: never Substance use type: does not use Do You Feel Safe in your Home?: Yes Lack of Transportation: No Lack of Food: Never True Current Housing: I Have Housing Concerned About Future Housing: No Difficulty Paying Gas/Electric Bills: No Difficulty Paying for Meds: No Currently Unemployed: No Education: High School Diploma/GED Difficulty w/ Childcare or Family Care: No Living arrangements: with family Additional living arrangements comments: Lives with her . Spiritual care concerns: No Meds Home Medications and Allergies Home Medications ?Medication ?Instructions ?Recorded ?Confirmed ?Type multivitamin (Multiple Vitamins 1 tablet PO DAILY 07/23/21 04/26/25 History tablet) vitamin B complex (B 1 tablet PO DAILY 07/23/21 04/26/25 History Complex-Vitamin B12 tablet) atorvastatin 40 mg tablet 40 mg PO DAILY #90 tabs 09/22/22 04/26/25 Rx potassium chloride 20 mEq 20 meq PO TID #180 tabs 10/02/22 04/26/25 Rx tablet,extended release losartan 25 mg tablet 25 mg PO DAILY 12/03/22 04/26/25 History amlodipine 10 mg tablet 10 mg PO DAILY 07/30/23 04/26/25 History metoprolol succinate 25 mg 25 mg PO DAILY 07/30/23 04/26/25 History tablet,extended release 24 hr budesonide 3 mg 9 mg (3 x 3 mg) PO DAILY 1 month 12/03/23 04/26/25 Rx capsule,delayed,extended release #90 ea magnesium oxide 500 mg PO DAILY #90 tabs 12/07/23 04/26/25 Rx leflunomide 20 mg tablet 20 mg PO DAILY #90 tabs 12/16/23 04/26/25 Rx hydroxychloroquine 200 mg tablet 200 mg PO DAILY #90 tabs 02/04/24 04/26/25 Rx (Plaquenil) hyoscyamine sulfate 0.375 mg See Rx Instructions .Route 02/10/24 04/26/25 Rx tablet,extended release,12 hr .COMPLEX #60 tabs buspirone 5 mg tablet 5 mg PO BID #180 tabs 11/30/24 04/26/25 Rx duloxetine 60 mg capsule,delayed 60 mg PO BID #180 caps 12/09/24 04/26/25 Rx release gabapentin 300 mg capsule See Rx Instructions .Route 01/04/25 04/26/25 Rx .COMPLEX #270 caps trazodone 50 mg tablet See Rx Instructions .Route 03/23/25 04/26/25 Rx .COMPLEX #90 tabs omeprazole 40 mg capsule,delayed See Rx Instructions .Route 04/08/25 04/26/25 Rx release .COMPLEX #90 caps abatacept 125 mg/mL subcutaneous 125 mg subcut WEEKLY 04/12/25 04/26/25 History auto-injector (Orencia ClickJect) albuterol sulfate 90 mcg/actuation 2 puff inhalation Q4-6H PRN 04/12/25 04/26/25 Rx aerosol inhaler shortness of breath or wheezing 30 days #8.5 grams doxycycline hyclate 100 mg capsule 100 mg PO BID 7 days #14 caps 04/12/25 04/26/25 Rx inhalational spacing device (Space #1 ea 04/12/25 04/26/25 Rx Chamber) methotrexate sodium 2.5 mg tablet 5 mg PO WEEKLY 04/26/25 04/26/25 History Allergies Allergy/AdvReac Type Severity Reaction Status Date / Time adhesive tape Allergy Intermediate Blister Verified 04/26/25 04:21 Vital Signs Vital Signs - 24 hr 04/26/25 04:25 04/26/25 05:10 04/26/25 07:14 Temperature 36.2 C L Pulse Rate 81 73 65 Respiratory Rate 20 14 Blood Pressure 108/53 L 127/59 L Pulse Oximetry 99 96 Oxygen Delivery Room Air 04/26/25 07:31 04/26/25 09:01 04/26/25 09:17 Temperature Pulse Rate 72 71 73 Respiratory Rate 20 24 H 30 H Blood Pressure 128/70 152/63 H 146/61 H Pulse Oximetry 94 90 91 Oxygen Delivery 04/26/25 09:32 04/26/25 12:31 04/26/25 16:17 Temperature 36.9 C Pulse Rate 77 75 79 Respiratory Rate 23 H 15 16 Blood Pressure 136/65 170/79 H 155/81 H Pulse Oximetry 96 94 Oxygen Delivery 04/26/25 17:50 Temperature Pulse Rate Respiratory Rate Blood Pressure Pulse Oximetry 94 Oxygen Delivery Room Air Exam Narrative: Lungs bilateral congestion with occasional wheezing Cardiovascular regular rate rhythm no murmurs Abdomen soft nontender nondistended Extremities no edema Results Labs 04/26/25 04:43 04/26/25 04:43 Labs: Short CBC 04/26/25 Range/Units 04:43 WBC 1.8 L* (4.5-10.0) K/mm3 Hgb 11.9 L (12.0-15.0) g/dL Hct 36.3 L (37.0-47.0) % Plt Count 86 L D (150-375) k/mm3 BMP 04/26/25 04:43 Sodium 131 L Potassium 4.3 Chloride 100 Carbon Dioxide 24 BUN 9 Creatinine 1.05 H Glucose 115 H Calcium 10.0 Cardiac Enzymes 04/26/25 04/26/25 Range/Units 04:43 07:36 Troponin I < 0.012 < 0.012 (0.000-0.034) ng/mL Liver Function 04/26/25 Range/Units 04:43 Total Bilirubin 1.2 (0.2-1.3) mg/dL AST 46 H (14-36) U/L ALT 43 H (6-35) U/L Alkaline Phosphatase 167 H (38-126) U/L Albumin 3.7 (3.5-5.1) g/dL Urine 04/26/25 Range/Units 10:37 Urine Color Yellow (Yellow) Urine Appearance Clear (Clear) Urine pH 5.5 (5.0-9.0) Ur Specific [place] 1.044 H (1.001-1.035) Urine Protein Negative (Negative) mg/dL Urine Glucose (UA) Negative (Negative) mg/dL
[2025-04-26 19:42] LABS: Immunoglobulin A 84 mg/dL (70-400); Immunoglobulin G 440 mg/dL (700-1600); Immunoglobulin M 43 mg/dL (40-230)
[2025-04-26 19:52] LABS: Iron 46 ug/dL (37-170)
[2025-04-26 20:01] LABS: Percent Iron Saturation 19 % (20-50)
[2025-04-26 20:15] LABS: Ferritin 478.00 ng/mL (11.1-264)
[2025-04-26] MEDS: CYANOCOBALAMIN INJ 1,000 MCG/ML VIAL 1000 MCG IM (20:48)
[2025-04-26] MEDS: DULoxetine HCL 60 MG CAPSULE.DR PO (22:24)
[2025-04-26] MEDS: GABAPENTIN 300 MG CAPSULE BY MOUTH (22:25)
[2025-04-26] MEDS: DOXYCYCLINE HYCLATE 100 MG TABLET PO (22:26)
[2025-04-27] MEDS: SODIUM CHLORIDE 0.9% IV 1,000 ML 100 ML IV CONT ×2 (04:30→16:57)
[2025-04-27 05:32] VITALS: BP 162/82; PULSE 82; RESP 14; TEMP 36.7; O2SAT 98
[2025-04-27 06:02] LABS: Hematocrit 33.6 % (37.0-47.0); Hemoglobin 11.2 g/dL (12.0-15.0); Immature Platelet Fraction Pct 4.1 % (0.9-11.2); Mean Corpuscular HGB Conc 33.3 g/dl (32-36); Mean Corpuscular Hemoglobin 31.2 pg (26-34); Mean Corpuscular Volume 93.6 fl (80-100); Platelet Count Result 80 k/mm3 (150-375); Red Blood Count 3.59 M/mm3 (4.2-5.4)
[2025-04-27 06:12] LABS: White Blood Count 1.6 K/mm3 (4.5-10.0)
[2025-04-27 06:28] LABS: Basophils Absolute Manual 0.06 K/mm3 (0.0-0.1); Basophils Percent Manual 4 % (0-1); Eosinophils Absolute Manual 0.19 K/mm3 (0.02-0.50); Eosinophils Percent Manual 12 % (0-4); Lymphocytes Absolute Manual 0.25 K/mm3 (1.1-4.5); Lymphocytes Percent Manual 16.0 % (18-44); Monocytes Absolute Manual 0.32 K/mm3 (0.1-0.90); Monocytes Percent Manual 20 % (3-9); Neutrophils Percent Manual 48 % (46-73); Schistocytes None Seen; Total Cells Counted 25
[2025-04-27 06:29] LABS: Alanine Aminotransferase 34 U/L (6-35); Albumin Level 3.3 g/dL (3.5-5.1); Alkaline Phosphatase 153 U/L (38-126); Anion Gap 8 mmol/L (4-12); Aspartate Amino Transferase 43 U/L (14-36); Bilirubin,Total 1.4 mg/dL (0.2-1.3); Blood Urea Nitrogen 9 mg/dL (7-17); Calcium 9.0 mg/dL (8.4-10.2); Carbon Dioxide 22 mmol/L (22-30); Chloride 104 mmol/L (98-107); Estimated CRCL calculation 44 ml/min; Estimated Glomerular Filt Rate 55; Glucose 88 mg/dL (65-110); Potassium 3.5 mmol/L (3.4-5.0); Sodium 134 mmol/L (137-145); Total Protein 6.0 g/dL (6.3-8.2)
--- NOTE | 2025-04-27 07:30 | PM.IMPN ---
Progress Note: A&P Assessment and Plan (1) Weakness: Code(s): R53.1 - Weakness Status: Acute Assessment and Plan: Patient endorsing increased weakness, feels as though she is unable to care for herself at home - Viral panel: negative - UA nonconcerning for infection - Head CT, Chest/abdomen/pelvis CT and Chest XR: Unremarkable for acute processes - PT/OT (2) Pancytopenia: Code(s): D61.818 - Other pancytopenia Status: Acute Assessment and Plan: - WBC 1.8 > 1.6, Hgb 11.9 > 11.2, and PLT 86 > 80 - Likely methotrexate induced pancytopenia (medication started 3 months ago) vs other medication induced pancytopenia (remains on leflunomide and hydroxychloroquine) vs infection related neutropenia and thrombocytopenia however less likely infection related given no acute processes seen on chest xr and chest/abdomen/pelvis CT. UA nonconcerning and viral panel negative. - Heme/onc consulted CT scan showed no evidence of hepatosplenomegaly and lymphadenopathy. Liver enzymes were also elevated. Vitamin B12 deficient, started B12 injection. Iron WNL however TIBC low and ferrtin high. quantitative immunoglobulin level due to frequent infection. hold methotrexate until ANC improves more than 1000. No need for Neupogen or bone marrow biopsy testing at this time. (3) Elevated liver enzymes: Code(s): R74.8 - Abnormal levels of other serum enzymes Status: Acute Assessment and Plan: LFTs slightly elevated on admission, Now downtrending CT chest/abdomen/pelvis showed fatty infiltration of the liver Hepatitis panel negative Potentially related to patients methotrexate use as well (4) HTN (hypertension): Qualifiers: Hypertension type: essential hypertension Qualified Code(s): I10 - Essential (primary) hypertension Code(s): I10 - Essential (primary) hypertension Status: Acute Assessment and Plan: Chronic, continue home medications - amlodipine 10 mg daily - losartan 25 mg daily - metoprolol 25 mg daily - blood pressures stable, continue to monitor (5) Diabetes: Qualifiers: Diabetes mellitus complication status: without complication Diabetes mellitus longterm insulin use: without longterm use Diabetes mellitus type: type 2 Qualified Code(s): E11.9 - Type 2 diabetes mellitus without complications Code(s): E11.9 - Type 2 diabetes mellitus without complications Status: Acute Assessment and Plan: - hypoglycemia protocol - POC blood glucose ACHS - home medication - none - correct regimen ordered - low dose TIDWM - A1C 6.2 on 12/29/24 Glucose levels stable. Continue to monitor. (6) Rheumatoid arthritis: Onset Date: ~1999 Qualifiers: Rheumatoid arthritis location: multiple sites Rheumatoid factor presence: with rheumatoid factor Qualified Code(s): M05.79 - Rheumatoid arthritis with rheumatoid factor of multiple sites without organ or systems involvement Code(s): M06.9 - Rheumatoid arthritis, unspecified Status: Acute Assessment and Plan: Chronic - Continue leflunomide 20 mg daily and hydroxychloroquine 200 mg daily - Holding methotrexate given pancytopenia (7) Headache: Code(s): R51.9 - Headache, unspecified Status: Acute Assessment and Plan: Patient endorsing new onset frontal headaches that occur when waking up, not currently endorsing headaches No associated neurological deficits Head CT unremarkable Possibly related to patients methotrexate If headaches worsen or do not improve with the stopping of this medication consider an outpatient MRI to further evaluate Time Spent With Patient Time with patient: 25 - 35 minutes Subjective Date/time seen: 04/27/25 07:30 Interval history: 65 year old female with past medical history of hypertension, lupus, nonischemic cardiomyopathy, diastolic dysfunction, diabetes, and rheumatoid arthritis presents to the hospital for weakness, lack of appetite, nausea and headaches. Patient is pleasant lying comfortably in bed with family at bedside. She states since being admitted she is feeling much better. She continues to endorse slight difficulty breathing stating she has to think about taking deep breaths. She denies associated shortness of breath or cough. She was previously diagnosed with bronchitis on the 04/12. She states she was to be on a doxycycline for this but did not get this filled until 04/20. Will give her one more dose to complete the course of antibiotics for the bronchitis. She has no other complaints denying chest pain, palpitations, nausea/vomiting, abdominal pain, UTI like symptoms, dizziness/lightheadedness, headaches, vision changes, or gait instability. Review of Systems Review of Systems: All systems reviewed & are unremarkable except as noted in HPI and below Exam Narrative: AF HR 83 RR 14 SpO2 100 BP 127/83 General: female in no acute respiratory distress who is nontoxic appearing, lying semi recumbent in bed. HEENT: Normocephalic. Atraumatic. Extraocular movement intact. Sclera clear and anicteric. No facial asymmetry. Chest: Lungs are clear to auscultation bilaterally. No wheezes or crackles. CV: Heart was regular rate and rhythm. Abd: Abdomen was soft. Nontender. Nondistended. Positive bowel sounds. Ext: No clubbing, cyanosis, or edema. DP pulses bilaterally. Neuro: Patient is alert and oriented x4. Speech is clear. Speaking full sentences but slow speech. Objective Data Vital Signs Vital Signs: Vital Signs - 24 hr 04/26/25 07:31 04/26/25 09:01 04/26/25 09:17 Temperature Pulse Rate 72 71 73 Respiratory Rate 20 24 H 30 H Blood Pressure 128/70 152/63 H 146/61 H Pulse Oximetry 94 90 91 Oxygen Delivery 04/26/25 09:32 04/26/25 12:31 04/26/25 16:17 Temperature 98.5 F Pulse Rate 77 75 79 Respiratory Rate 23 H 15 16 Blood Pressure 136/65 170/79 H 155/81 H Pulse Oximetry 96 94 Oxygen Delivery 04/26/25 17:50 04/26/25 20:00 04/26/25 20:30 Temperature Pulse Rate 75 Respiratory Rate 16 Blood Pressure Pulse Oximetry 94 98 96 Oxygen Delivery Room Air Room Air Room Air 04/26/25 21:15 04/26/25 22:19 04/27/25 02:10 Temperature 98.6 F Pulse Rate 77 75 Respiratory Rate 16 Blood Pressure 130/67 Pulse Oximetry 91 98 Oxygen Delivery Room Air Room Air 04/27/25 05:32 Temperature 98.1 F Pulse Rate 82 Respiratory Rate 14 Blood Pressure 162/82 H Pulse Oximetry 98 Oxygen Delivery Intake/Output Intake/Output: Intake & Output 04/24/25 04/25/25 04/26/25 04/27/25 23:59 23:59 23:59 23:59 Intake Total 1240 1300 Balance 1240 1300 Meds/Results Medications: Active Medications Generic Name Dose Route Start Last Admin Trade Name Freq PRN Reason Stop Dose Admin Acetaminophen 650 mg 04/26/25 12:26 Acetaminophen 325 Mg Tablet PO Q4H PRN Mild Pain (1-3) or Fever Albuterol 2 puff 04/26/25 21:02 Albuterol Sulfate (*Sp) Aerosol 1 Puff INHALATION Q4-6H PRN shortness of breath or wheezing Amlodipine Besylate 10 mg 04/27/25 09:00 Amlodipine Besylate 10 Mg Tablet PO DAILY [facility] Atorvastatin Calcium 40 mg 04/27/25 09:00 Atorvastatin 40 Mg Tablet PO DAILY [facility] Budesonide 9 mg 04/27/25 09:00 Budesonide 3 Mg Cap.Sr.24h PO DAILY [facility] Buspirone HCl 5 mg 04/26/25 21:20 04/26/25 22:24 Buspirone Hcl 5 Mg Tablet PO 5 mg BID SMITH Administration Dextrose 12.5 gm 04/26/25 15:27 Dextrose 50% 25 Gm/50 Ml Syringe IV PUSH PRN PRN Hypoglycemia Protocol Docusate Sodium 100 mg 04/26/25 17:00 04/26/25 17:18 Docusate Sodium 100 Mg Capsule PO Not Given BID [facility] Doxycycline Hyclate 100 mg 04/26/25 22:25 04/26/25 22:26 Doxycycline Hyclate 100 Mg Tablet PO 100 mg BID SMITH Administration Duloxetine HCl 60 mg 04/26/25 21:20 04/26/25 22:24 Duloxetine Hcl 60 Mg Capsule.Dr PO 60 mg BID SMITH Administration Gabapentin 300 mg 04/26/25 21:20 04/26/25 22:25 Gabapentin 300 Mg Capsule BY MOUTH 300 mg TID SMITH Administration Glucagon 1 mg 04/26/25 15:27 Glucagon For Inj 1 Mg Vial IM PRN PRN Hypoglycemia Protocol Glucose 15 gm 04/26/25 15:27 Glucose Oral Gel 15 Gm Of Glucse In 37.5 Gm Tube PO PRN PRN Hypoglycemia Protocol Hydroxychloroquine Sulfate 200 mg 04/27/25 09:00 Hydroxychloroquine Sulfate 200 Mg Tablet PO DAILY [facility] Sodium Chloride 1,000 mls @ 100 mls/hr 04/26/25 15:05 04/27/25 04:30 Normal Saline Iv IV CONT 100 mls/hr .Q10H SMITH Administration Dextrose 1,000 mls @ 100 mls/hr 04/26/25 15:27 Dextrose 5% 1,000 Ml IVPB PRN PRN Hypoglycemia Protocol Insulin Aspart 2 - 5 units 04/26/25 17:00 04/26/25 17:19 Insulin Aspart (*Bkc) 100 Units/Ml SUB-Q Not Given TIDWM [facility] Protocol Insulin Aspart 1 - 2 units 04/26/25 21:00 04/26/25 20:56 Insulin Aspart (*Bkc) 100 Units/Ml SUB-Q Not Given HS [facility] Protocol Leflunomide 20 mg 04/27/25 09:00 Leflunomide 20 Mg Tablet PO DAILY [facility] Losartan Potassium 25 mg 04/27/25 09:00 Losartan Potassium 25 Mg Tablet PO DAILY [facility] Metoprolol Succinate 25 mg 04/27/25 09:00 Metoprolol Succinate Ext Rel 25 Mg Tabcr PO DAILY [facility] Ondansetron HCl 4 mg 04/26/25 12:26 Ondansetron Inj 4 Mg/2 Ml Vial IV PUSH Q4H PRN Nausea Trazodone HCl 50 mg 04/26/25 21:20 04/26/25 22:25 Trazodone Hcl 50 Mg Tablet BY MOUTH 50 mg HS SMITH Administration Radiology Results: ITS Impressions Chest X-Ray 04/26/25 05:58 IMPRESSION: 1: NO ACUTE CARDIOPULMONARY DISEASE. Chest/Abdomen/Pelvis CT 04/26/25 07:12 IMPRESSION: 1. No acute abnormality of the chest, abdomen or pelvis. Head CT 04/26/25 07:28 IMPRESSION: 1. No acute intracranial abnormality. Labs Labs: Laboratory Results - last 24 hr 04/26/25 04/26/25 04/26/25 07:36 10:37 16:45 WBC RBC Hgb Hct MCV MCH MCHC RDW Plt Count MPV Immature Gran % (Auto) Neut % (Auto) Lymph % (Auto) [place] % (Auto) Eos % (Auto) Baso % (Auto) Lymph # (Auto) [place] # (Auto) Eos # (Auto) Baso # (Auto) Abs Immat Gran (auto) Absolute Neuts (auto) Absolute Nucleated RBC Total Counted Neutrophils % (Manual) Band Neutrophils % Lymphocytes % (Manual) Monocytes % (Manual) Eosinophils % (Manual) Basophils % (Manual) Nucleated RBC % Abs Lymphs (Manual) Abs Monocytes (Manual) Absolute Eos (Manual) Abs Basophils (Manual) Platelet Estimate % Immature Plt Fraction Schistocytes Sodium Potassium Chloride Carbon Dioxide Anion Gap BUN Creatinine Estim Creat Clear Calc Estimated GFR Glucose POC Capillary Glucose 101 Calcium Iron TIBC % Saturation Ferritin Total Bilirubin AST ALT Alkaline Phosphatase Troponin I < 0.012 Total Protein Albumin Urine Color Yellow Urine Appearance Clear Urine pH 5.5 Ur Specific [place] 1.044 H Urine Protein Negative Urine Glucose (UA) Negative Urine Ketones Negative Ur Blood (Man) Negative Urine Nitrate Negative Urine Bilirubin Negative Urine Urobilinogen 1.0 Leukocyte Esterase Rfl Negative IgG IgA IgM 04/26/25 04/26/25 04/27/25 19:06 19:39 05:43 WBC 1.6 L* RBC 3.59 L Hgb 11.2 L Hct 33.6 L MCV 93.6 MCH 31.2 MCHC 33.3 RDW 13.6 Plt Count 80 L MPV 10.8 H Immature Gran % (Auto) Not Reportable Neut % (Auto) Not Reportable Lymph % (Auto) Not Reportable [place] % (Auto) Not Reportable Eos % (Auto) Not Reportable Baso % (Auto) Not Reportable Lymph # (Auto) Not Reportable [place] # (Auto) Not Reportable Eos # (Auto) Not Reportable Baso # (Auto) Not Reportable Abs Immat Gran (auto) Not Reportable Absolute Neuts (auto) Not Reportable Absolute Nucleated RBC Not Reportable Total Counted 25 Neutrophils % (Manual) 48 Band Neutrophils % Not Reportable Lymphocytes % (Manual) 16.0 L Monocytes % (Manual) 20 H Eosinophils % (Manual) 12 H Basophils % (Manual) 4 H Nucleated RBC % Not Reportable Abs Lymphs (Manual) 0.25 L Abs Monocytes (Manual) 0.32 Absolute Eos (Manual) 0.19 Abs Basophils (Manual) 0.06 Platelet Estimate Adequate % Immature Plt Fraction 4.1 Schistocytes None seen Sodium 134 L Potassium 3.5 Chloride 104 Carbon Dioxide 22 Anion Gap 8 BUN 9 Creatinine 1.00 Estim Creat Clear Calc 44 Estimated GFR 55 L Glucose 88 POC Capillary Glucose 128 H Calcium 9.0 Iron 46 TIBC 245 L % Saturation 19 L Ferritin 478.00 H Total Bilirubin 1.4 H AST 43 H ALT 34 Alkaline Phosphatase 153 H Troponin I Total Protein 6.0 L Albumin 3.3 L Urine Color Urine Appearance Urine pH Ur Specific [place] Urine Protein Urine Glucose (UA) Urine Ketones Ur Blood (Man) Urine Nitrate Urine Bilirubin Urine Urobilinogen Leukocyte Esterase Rfl IgG 440 L IgA 84 IgM 43 Quality VTE Prophylaxis VTE prophylaxis: mechanical ordered
[2025-04-27 08:19] VITALS: BP 127/83; PULSE 83; O2SAT 100
[2025-04-27 08:22] VITALS: PULSE 83
[2025-04-27] MEDS: HYDROXYCHLOROQUINE SULFATE 200 MG TABLET PO (08:22)
[2025-04-27] MEDS: BUDESONIDE 3 MG CAP.SR.24H 9 MG PO (08:22)
[2025-04-27] MEDS: METOPROLOL SUCCINATE EXT REL 25 MG TABCR PO (08:22)
[2025-04-27] MEDS: DULoxetine HCL 60 MG CAPSULE.DR PO ×2 (08:22→16:57)
[2025-04-27] MEDS: ATORVASTATIN 40 MG TABLET PO (08:23)
[2025-04-27] MEDS: LOSARTAN POTASSIUM 25 MG TABLET PO (08:23)
[2025-04-27] MEDS: LEFLUNOMIDE 20 MG TABLET PO (08:23)
[2025-04-27] MEDS: GABAPENTIN 300 MG CAPSULE BY MOUTH ×3 (08:23→16:56)
[2025-04-27] MEDS: DOCUSATE SODIUM 100 MG CAPSULE PO ×2 (08:23→16:56)
[2025-04-27] MEDS: ACETAMINOPHEN 325 MG TABLET 650 MG PO ×2 (08:31→20:31)
[2025-04-27 09:05] LABS: Influenza A QL RT-PCR Negative (Negative); Influenza B QL RT-PCR Negative (Negative); RSV RNA, RT-PCR Negative (Negative); SARS-CoV-2 RNA PCR Negative (Negative)
[2025-04-27 09:18] LABS: Hepatitis B Surface Antigen Negative (Negative)
[2025-04-27 09:24] LABS: HAV RESULT Negative (Negative); Hepatitis B Core IgM Result Negative (Negative)
[2025-04-27 13:36] VITALS: BP 135/68; PULSE 63; RESP 18; TEMP 36.1; O2SAT 99
[2025-04-27] MEDS: DOXYCYCLINE HYCLATE 100 MG TABLET PO (14:08)
[2025-04-27 20:00] VITALS: PULSE 73; RESP 17; O2SAT 92
[2025-04-27 22:00] VITALS: BP 152/69; PULSE 73; RESP 17; TEMP 36.8; O2SAT 92
[2025-04-28] MEDS: SODIUM CHLORIDE 0.9% IV 1,000 ML 100 ML IV CONT (05:19)
[2025-04-28 06:00] VITALS: BP 127/70; PULSE 59; RESP 16; TEMP 36.7; O2SAT 99
[2025-04-28 08:30] VITALS: O2SAT 99
[2025-04-28 08:33] VITALS: PULSE 75
[2025-04-28] MEDS: ATORVASTATIN 40 MG TABLET PO (08:33)
[2025-04-28] MEDS: HYDROXYCHLOROQUINE SULFATE 200 MG TABLET PO (08:33)
[2025-04-28] MEDS: LOSARTAN POTASSIUM 25 MG TABLET PO (08:33)
[2025-04-28] MEDS: METOPROLOL SUCCINATE EXT REL 25 MG TABCR PO (08:33)
[2025-04-28] MEDS: GABAPENTIN 300 MG CAPSULE BY MOUTH ×2 (08:33→12:02)
[2025-04-28] MEDS: DULoxetine HCL 60 MG CAPSULE.DR PO (08:33)
[2025-04-28] MEDS: BUDESONIDE 3 MG CAP.SR.24H 9 MG PO (08:33)
[2025-04-28] MEDS: DOCUSATE SODIUM 100 MG CAPSULE PO (08:34)
[2025-04-28] MEDS: LEFLUNOMIDE 20 MG TABLET PO (08:34)
[2025-04-28 09:33] LABS: Hematocrit 35.7 % (37.0-47.0); Hemoglobin 11.3 g/dL (12.0-15.0); Immature Platelet Fraction Pct 4.6 % (0.9-11.2); Mean Corpuscular HGB Conc 31.7 g/dl (32-36); Mean Corpuscular Hemoglobin 31.3 pg (26-34); Mean Corpuscular Volume 98.9 fl (80-100); Platelet Count Result 95 k/mm3 (150-375); Red Blood Count 3.61 M/mm3 (4.2-5.4); White Blood Count 2.1 K/mm3 (4.5-10.0)
[2025-04-28 09:43] LABS: Alanine Aminotransferase 40 U/L (6-35); Albumin Level 3.3 g/dL (3.5-5.1); Alkaline Phosphatase 143 U/L (38-126); Anion Gap 9 mmol/L (4-12); Aspartate Amino Transferase 57 U/L (14-36); Bilirubin,Total 1.2 mg/dL (0.2-1.3); Blood Urea Nitrogen 9 mg/dL (7-17); Calcium 9.0 mg/dL (8.4-10.2); Carbon Dioxide 18 mmol/L (22-30); Chloride 106 mmol/L (98-107); Estimated CRCL calculation 54 ml/min; Estimated Glomerular Filt Rate > 60; Glucose 112 mg/dL (65-110); Potassium 3.6 mmol/L (3.4-5.0); Sodium 133 mmol/L (137-145); Total Protein 6.3 g/dL (6.3-8.2)
[2025-04-28] MEDS: ONDANSETRON INJ 4 MG/2 ML VIAL IV PUSH (10:58)
[2025-04-28] MEDS: ACETAMINOPHEN 325 MG TABLET 650 MG PO (12:03)
[2025-04-28 14:00] VITALS: BP 125/52; PULSE 66; RESP 18; TEMP 36.4; O2SAT 94
--- NOTE | 2025-04-28 15:00 | P.DS_ITS ---
DS: Admitting Diagnosis Discharge Date 04/28/2025 Admitting Diagnosis Weakness Pancytopenia Elevated liver enzymes HTN DM RA headache DS: Discharge Diagnosis Discharge Diagnosis (1) Weakness: Code(s): R53.1 - Weakness Status: Acute (2) Pancytopenia: Code(s): D61.818 - Other pancytopenia Status: Acute (3) Elevated liver enzymes: Code(s): R74.8 - Abnormal levels of other serum enzymes Status: Acute (4) HTN (hypertension): Qualifiers: Hypertension type: essential hypertension Qualified Code(s): I10 - Essential (primary) hypertension Code(s): I10 - Essential (primary) hypertension Status: Acute (5) Diabetes: Qualifiers: Diabetes mellitus complication status: without complication Diabetes mellitus terminal computer operator insulin use: without half-way use Diabetes mellitus type: type 2 Qualified Code(s): E11.9 - Type 2 diabetes mellitus without complications Code(s): E11.9 - Type 2 diabetes mellitus without complications Status: Acute (6) Rheumatoid arthritis: Onset Date: ~1999 Qualifiers: Rheumatoid arthritis location: multiple sites Rheumatoid factor presence: with rheumatoid factor Qualified Code(s): M05.79 - Rheumatoid arthritis with rheumatoid factor of multiple sites without organ or systems involvement Code(s): M06.9 - Rheumatoid arthritis, unspecified Status: Acute (7) Headache: Code(s): R51.9 - Headache, unspecified Status: Acute DS: Summary Hospital Course Reason for hospitalization: Weakness Pancytopenia Elevated liver enzymes HTN DM RA headache Hospital Course: 65 year old female with past medical history of hypertension, lupus, nonischemic cardiomyopathy, diastolic dysfunction, diabetes, and rheumatoid arthritis presents to the hospital for weakness, lack of appetite, nausea and headaches. Patient found to be pancytopenic on admission. Likely methotrexate induced pancytopenia (medication started 3 months ago) vs other medication induced pancytopenia (remains on leflunomide and hydroxychloroquine) vs infection related neutropenia and thrombocytopenia. Viral panel negative. UA nonconcerning for infection. Head CT, Chest/abdomen/pelvis CT and Chest XR unremarkable for acute processes. Heme/onc consulted. Patient noted to have B12 deficiency and was given B12 injection and started on supplementation. Per heme/onc hold methotrexate and patient does not require Neupogen or bone marrow biopsy testing. Blood levels improved prior to discharge. Patient to follow up with heme/onc in the outpatient setting. During admission patient had slightly elevated LFTs. CT chest/abdomen/pelvis showed fatty infiltration of the liver. Hepatitis panel negative. Potentially related to patients methotrexate use as well which will remain on hold until follow up with stamping press operator. Per patient she has an appointment with her rheumotologist Dr. Ardon in early May. Patient endorsing new onset frontal headaches that occur when waking up. Not currently endorsing headache at time of discharge. No associated neurological deficits. Head CT unremarkable. Possibly related to patients methotrexate. Discussed with patient that if headaches worsen or do not improve with the stopping of this medication or if neurological symptoms occur to follow up with PCP or return to the hospital. She states understanding. Patient had no complaints at time of discharge denying chest pain, shortness a breath, palpitations, nausea/vomiting, abdominal pain, and dizziness/lightheadedness/headaches. Patient was able to ambulate throughout room without assistance and stated that she ready for discharge at this. Patient discharged home with family in a stable condition. She is to follow up with her primary care in 1 week and her stamping press operator and heme/Onc as scheduled. Status at Discharge Functional status at discharge: independent ambulation Time Spent with Patient Time attestation: Total time spent providing and/or coordinating discharge services: Time spent: Greater than 30 minutes Exam Narrative: AF HR 75 RR 16 Spo2 99 BP 127/70 General: female in no acute respiratory distress who is nontoxic appearing, ambulating throughout room prior to sitting on side of bed. HEENT: Normocephalic. Atraumatic. PERRLA. Extraocular movement intact. Sclera clear and anicteric. No facial asymmetry. Chest: Lungs are clear to auscultation bilaterally. No wheezes or crackles. CV: Heart was regular rate and rhythm. Abd: Abdomen was soft. Nontender. Nondistended. Positive bowel sounds. Ext: No clubbing, cyanosis, or edema. DP pulses bilaterally. Neuro: Patient is alert and oriented x4. Strength is symmetrical to bilateral upper and lower extremities. Speech is clear. Speaking full sentences but slow speech. DS: Data Data Completed and Pending Completed studies during hospitalization: head ct chest abdomen pelvis ct chest xr Labs on day of discharge: Labs from last 24 hours 04/28/25 04/28/25 04/28/25 11:37 09:26 07:47 WBC 2.1 L RBC 3.61 L Hgb 11.3 L Hct 35.7 L MCV 98.9 D MCH 31.3 MCHC 31.7 L RDW 13.7 Plt Count 95 L MPV 10.2 % Immature Plt Fraction 4.6 Sodium 133 L Potassium 3.6 Chloride 106 Carbon Dioxide 18 L Anion Gap 9 BUN 9 Creatinine 0.81 Estim Creat Clear Calc 54 Estimated GFR > 60 Glucose 112 H POC Capillary Glucose 98 95 Calcium 9.0 Total Bilirubin 1.2 AST 57 H ALT 40 H Alkaline Phosphatase 143 H Total Protein 6.3 Albumin 3.3 L 04/27/25 04/27/25 19:31 16:25 WBC RBC Hgb Hct MCV MCH MCHC RDW Plt Count MPV % Immature Plt Fraction Sodium Potassium Chloride Carbon Dioxide Anion Gap BUN Creatinine Estim Creat Clear Calc Estimated GFR Glucose POC Capillary Glucose 165 H 124 H Calcium Total Bilirubin AST ALT Alkaline Phosphatase Total Protein Albumin Discharge Plan Discharge Attending physician on discharge: Buffy Carter Consulting providers: Kumar Walker Discharging Clinician: Gracy Buchanan Anticipated Discharge Date/Time: 04/28/25 14:40 Patient Disposition: Home Activity: as tolerated Diet: as tolerated Discharge Instructions: Discharge disposition: Patient admitted to the hospital for weakness and pancytopenia Evaluated by heme/onc Started on B12 supplementation Follow up with heme/onc in the outpatient setting, call for an appointment Concern that methotrexate is causing lab abnormalities and headaches Continue to hold methotrexate until able to follow up with stamping press operator Dr. Ardon, call for appointment If the headaches continue after stopping this medication or worsen or if other neurological changes such as vision changes, slurred speech or weakness occur will likely need further workup Monitor blood pressures Take caution while standing, rising, or moving Change positions slowly taking a break between each position change If you standing feel dizzy sit back down and take a break Encouraged to continue with yearly vaccinations Return to the emergency department if he developed sudden shortness of breath, chest pain, nausea, vomiting, upset stomach or intractable diarrhea Return to the emergency department if you develop fever greater than 100.5 Follow-up with the primary care physician within 1-2 weeks Thank you for [facility] for your healthcare needs Patient Instructions: Pancytopenia (DC) Patient Language: Latvian Stand Alone Forms: General Discharge Information Follow-up/Referrals: Kumar Walker MD [Physician] - Call for Appointment Luis Finch MD [Primary Care Provider] - 1 Week Discharge Medications: Continued Orencia ClickJect 125 mg/mL auto-injector 125 mg SUBCUT WEEKLY Patient Comments: patient takes on albuterol sulfate 90 mcg/actuation HFA aerosol inhaler 2 puff inhalation Q4-6H PRN (Reason: shortness of breath or wheezing) 30 Days Qty: 8.5 0RF (DME) Space Chamber Spacer See Rx Instructions .ROUTE .MEDSUPPLY Qty: 1 0RF Rx Instructions: As directed losartan 25 mg tablet 25 mg PO DAILY magnesium oxide 500 mg magnesium tablet 500 mg PO DAILY Qty: 90 1RF budesonide 3 mg capsule,delayed,extend.release 9 mg PO DAILY 30 Days Qty: 90 5RF multivitamin [Multiple Vitamins] Tablet 1 tablet PO DAILY vitamin B complex [B Complex-Vitamin B12] Tablet 1 tablet PO DAILY amlodipine 10 mg tablet 10 mg PO DAILY metoprolol succinate 25 mg tablet extended release 24 hr 25 mg PO DAILY atorvastatin 40 mg tablet 40 mg PO DAILY Qty: 90 1RF potassium chloride 20 mEq tablet extended release 20 meq PO TID Qty: 180 1RF leflunomide 20 mg tablet 20 mg PO DAILY Qty: 90 1RF hydroxychloroquine [Plaquenil] 200 mg tablet 200 mg PO DAILY Qty: 90 1RF hyoscyamine sulfate 0.375 mg tablet extended release 12 hr See Rx Instructions .ROUTE .COMPLEX Qty: 60 5RF Dose Instruction: TAKE 1 TABLET EVERY 12 HOURS NEEDED FOR ABDOMINAL PAIN Rx Instructions: TAKE 1 TABLET EVERY 12 HOURS NEEDED FOR ABDOMINAL PAIN buspirone 5 mg tablet 5 mg PO BID Qty: 180 1RF duloxetine 60 mg capsule,delayed release(DR/EC) 60 mg PO BID Qty: 180 1RF gabapentin 300 mg capsule See Rx Instructions .ROUTE .COMPLEX Qty: 270 1RF Dose Instruction: TAKE 1 CAPSULE BY MOUTH THREE TIMES A DAY FOR 90 DAYS Rx Instructions: TAKE 1 CAPSULE BY MOUTH THREE TIMES A DAY FOR 90 DAYS trazodone 50 mg tablet See Rx Instructions .ROUTE .COMPLEX Qty: 90 1RF Dose Instruction: TAKE 1 TABLET BY MOUTH EVERY DAY AT BEDTIME Rx Instructions: TAKE 1 TABLET BY MOUTH EVERY DAY AT BEDTIME omeprazole 40 mg capsule,delayed release(DR/EC) See Rx Instructions .ROUTE .COMPLEX Qty: 90 0RF Dose Instruction: TAKE 1 CAPSULE BY MOUTH EVERY DAY Rx Instructions: TAKE 1 CAPSULE BY MOUTH EVERY DAY Held methotrexate sodium 2.5 mg tablet 5 mg PO WEEKLY Hold Instructions: Resume on 05/04/25. Hold until follow up with rheumatology Rx Instructions: patient takes this on Discontinued doxycycline hyclate 100 mg capsule 100 mg PO BID 7 Days Qty: 14 0RF Date of admission: 04/26/25 12:26 Primary Care Provider: Luis Finch Admitting Provider: Mesfin Jones Attending physician on admission: Mesfin Jones Condition: Stable Hospitalist MIPS Heart Failure (Exclusion) Patient has history of Heart Transplant or Left Ventricular Assistive Device?: No IF YES, STOP HERE Heart Failure (Qualifier) Patient has current or prior documentation of LVEF less than or equal to 40%, or mod/servere depressed LVSF?: No IF NO, STOP HERE
== END 2025-04-28 15:25 | disposition home or self-care (01) ==
LOC: ANHED 12:15 → ANH3MEDSUR 04-27 06:30
PROVIDERS: Internal Medicine Hematology & Oncology; Nurse Practitioner Gerontology; Student in an Organized Health Care Education/Training Program; Admitting Provider Family Medicine; Emergency Provider Emergency Medicine; PCP Family Medicine; Visit Provider Internal Medicine
DX: D61.818 Other pancytopenia (principal); R53.1 Weakness; R74.8 Abnormal levels of other serum enzymes; J18.9 Pneumonia, unspecified organism; R51.9 Headache, unspecified; T45.1X5A Adverse effect of antineoplastic and immunosuppressive drugs, initial encounter; M05.79 Rheumatoid arthritis with rheumatoid factor of multiple sites without organ or systems involvement; M32.9 Systemic lupus erythematosus, unspecified; I42.8 Other cardiomyopathies; E11.40 Type 2 diabetes mellitus with diabetic neuropathy, unspecified; I11.9 Hypertensive heart disease without heart failure; K21.9 Gastro-esophageal reflux disease without esophagitis; G47.33 Obstructive sleep apnea (adult) (pediatric); Z87.891 Personal history of nicotine dependence; Z79.631 Long term (current) use of antimetabolite agent; Z79.51 Long term (current) use of inhaled steroids; Z20.822 Contact with and (suspected) exposure to COVID-19
CPT/HCPCS: 36415; 70450; 71046; 71260; 74177; 80053; 80074; 81003; 82728; 82784; 82948; 83540; 83550; 83690; 84484; 85025; 85027; 85055; 85610; 85730; 87637; 93005; 96361; 96372; 96374; 96375; 96376; 97161; 97165; 99285; A9270; G0378; J2405; J3420; J7030; J7120; Q9967

== ENCOUNTER 2025-06-22 10:43 | Outpatient (CLI) | payer MEDICARE, SELFPAY ==
--- OUTSIDE RECORDS SUMMARY | 2025-06-22 10:30 | XMS_ITS | Encounter Summary ---
Author Organization [facility] Address [address] [place] [address] Care Team Providers Care Transistor Tester Name Role Phone Unavailable Primary Care Provider Unavailabl e Reason for Visit * Reason Comments Follow Up Encounter Details Date Type Department Care Team (Late st Contact Info) Description 06/22/2025 10:30 AM CDT Office Visit [facility] Oncology and Hematology - Asaf [address] [facility] [address] [place] [address] Kumar Walker MD [address] [facility] [address] [place] [address] Chronic anemia (Primary Dx) Social History Tobacco Use Types Packs/Day Years Used Date Smoking Tobacco: Former Cigarettes 0.5 35 0 06/22/1980 - 06/22/2015 Smokeless Tobacco: Never Alcohol Use Standard Drinks/Week Comments Yes 0 (1 standard drink = 0.6 oz pur e alcohol) Occassionally Comments Unknown Sex and Gender Information Value Date Recorded Sex Assigned at Not on file Legal Sex Female 3:54 PM CDT Gender Identity Not on file Sexual Orientation Not on file documented as of this encounter Last Filed Vital Signs Vital Sign Reading Time Taken Comments Blood Pressure 139/85 06/22/2025 10:24 AM CDT Pulse 70 06/22/2025 10:24 AM CDT Temperature 36.6 C (97.9 F) 06/22/2025 10:24 AM CDT Respiratory Rate 15 06/22/2025 10:24 AM CDT Oxygen Saturation 97% 06/22/2025 10:24 AM CDT Inhaled Oxygen Concentration - - Weight 62.7 kg (138 lb 3.2 oz) 06/22/2025 10:24 AM CDT Height 165.1 cm (5' 5) 06/22/2025 10:24 AM CDT Body Mass Index 23 06/22/2025 10:24 AM CDT documented in this encounter Progress Notes * Kumar Walker MD - 06/22/2025 10:28 AM CDT HEMATOLOGY / ONCOLOGY PROGRESS NOTE Patient Identification: Name: Jennifer Martinez Age: 65 y.o. Sex: female : 1960 DIAGNOSIS Pancytopenia CURRENT TREATMENT Iron every other day and vitamin super B complex every day. TREATMENT HISTORY SUBJECTIVE Patient came to the office for follow-up visit after being seen in the hospital. Her rheumatoid arthritis symptoms are under control now with Plaquenil and leflunomide. Methotrexate has been discontinued due to pancytopenia while she was in the hospital back in April. She denies any bleeding and bruising. Denies any excessive tiredness and fatigue. No other new complaints. Review of system Constitutional: Patient did not mention fevers, sweats, fatigue, malaise, weight loss HEENT: Patient did not mention sinus congestion, hearing or vision problems Respiratory: Patient did not mention cough, dyspnea, wheeze Cardiovascular: Patient did not mention chest pain, exertional chest pressure/discomfort, nausea, syncope, shortness of breath GI: Patient did not mention constipation, diarrhea, dsyphagia, reflux symptoms, vomiting, melena : Patient did not mention dysuria, frequency, incontinence, urgency Integumentary system: no lymphadenopathy, sweats, flushing Musculoskeletal: Patient not mention: myalgia, complain of mild arthralgia involving both hands Neurological: Patient did not mention blurry or disturbed vision, numbness/weakness, dizziness Skin: No lumps, bumps or rashes. Objective: Vital signs in last 24 hours: As per nursing note Exam: General appearance: alert, cooperative, no distress, appears stated age Head: normocephalic, without obvious abnormality, atraumatic Eyes: conjunctivae/corneas clear, EOM's intact Ears: normal external ear canals AU Nose: Nares normal. Septum midline. Mucosa normal. No drainage or sinus tenderness Throat: Lips, mucosa, and tongue normal. Teeth and gums normal Neck: supple, symmetrical, trachea midline. Lungs: clear to auscultation bilaterally Heart: regular rate and rhythm, S1, S2 normal, no murmur, click, rub or gallop Abdomen: soft, non-tender. Bowel sounds normal. No masses, No organomegaly Extremities: extremities normal, atraumatic, no cyanosis or edema Skin: Skin color, texture, turgor normal. No rashes or lesions Lymph nodes: No lymphadenopathy Neuro: No obvious focal deficit PATH LABS Labs from May 2025 showed WBC 5.6 hemoglobin 12.6 platelet 320,000. @IMAGEIMP@ Assessment: Plan: There are no active problems to display for this patient. Pancytopenia. Patient was seen in the hospital initially in April 2025 with pancytopenia. She has a history of rheumatoid arthritis and lupus for which she was taking methotrexate. She was admitted [facility] with bronchitis. Methotrexate was discontinued due to pancytopenia. CT scan was done that showed no hepatosplenomegaly and lymphadenopathy. Other labs showed vitamin D deficiency and received B12 injection. Since discontinuation of methotrexate her blood count has improved. I will repeat labs including CBC, CMP, B12 level, folic acid and iron studies. She will continue iron every other day and super B complex every day. I will discuss the labs with her in 2 weeks. Rheumatoid arthritis. She will continue leflunomide and Plaquenil. She will follow-up with Dr. Mello. ? TOBACCO COUNSELING She is not a tobacco/nicotine user. 06/22/2025 Kumar Walker MD documented in this encounter Plan of Treatment Upcoming Encounters Date Type Department Care Team (Late st Contact Info) Description 07/06/2025 4:30 PM CDT Telephone Check Up [facility] Oncology and Hematology - Asaf [address] [facility] [address] [place] [address] Kumar Walker MD [address] [facility] [address] [place] [address] Scheduled Orders Name Type Priority Associated Diagnoses Orde r Schedule CBC WITH DIFFERENTIAL Lab Stat Chronic anemia Expected: 06/22/2025, Expires: 06/22/2026 COMPREHENSIVE METABOLIC PANEL Lab Stat Chronic anemia Expected: 06/22/2025, Expires: 06/22/2026 FERRITIN Lab Routine Chronic anemia Expected: 06/22/2025, Expires: 06/22/2026 IRON, TIBC, AND PERCENT SATURATION Lab Routine Chronic anemia Expected: 06/22/2025, Expires: 06/22/2026 VITAMIN B12 AND FOLATE Lab Routine Chronic anemia Expected: 06/22/2025, Expires: 06/22/2026 METHYLMALONIC ACID Lab Routine Chronic anemia Expected: 06/22/2025, Expires: 06/22/2026 documented as of this encounter Visit Diagnoses Diagnosis Chronic anemia- Primary Anemia, unspecified documented in this encounter
[2025-06-22 11:08] LABS: Hematocrit 39.0 % (37.0-47.0); Hemoglobin 12.8 g/dL (12.0-15.0); Immature Granulocyte Percent A 0.5 % (0-0.5); Lymphocytes Absolute Auto 0.77 K/mm3 (0.9-3.2); Mean Corpuscular HGB Conc 32.8 g/dl (32-36); Mean Corpuscular Hemoglobin 31.9 pg (26-34); Mean Corpuscular Volume 97.3 fl (80-100); Nucleated Red Blood Cells Absolute Auto 0.000 K/mm3 (0.0-0.012); Nucleated Red Blood Cells Perc 0.0 % (0.0-0.2); Platelet Count Result 161 k/mm3 (150-375); Red Blood Count 4.01 M/mm3 (4.2-5.4); White Blood Count 4.0 K/mm3 (4.5-10.0)
--- OUTSIDE RECORDS SUMMARY | 2025-06-22 11:22 | XMS_ITS | Encounter Summary ---
Author Organization [facility] Address [address] [place] [address] Phone Care Team Providers Care Line Closer Name Role Phone Denise Meza MD Primary Care Provider [phone] Wilian Morales MD Primary Care Provider [phone] Luis Finch MD Primary Care Provider [phone] Encounter Details Date Type Department Care Team (Latest Contact Info) Description 09/21/2017 Orders Only [facility] CONVERSION Scanning, Provider Social History Tobacco Use Types Packs/Day Years Used Date Smoking Tobacco: Never Assessed Comments Unknown Sex and Gender Information Value Date Recorded Sex Assigned at Not on file Legal Sex Female 11:31 PM 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 STORAGE 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 Gender Identity Not on file Sexual Orientation Not on file documented as of this encounter Plan of Treatment Not on file documented as of this encounter Procedures Procedure Name Priority Date/Time Associated Diagnosis Comments PULMONARY FUNCTION TEST (PFT) 09/21/2017 12:43 PM DIE STORAGE WORKER documented in this encounter Results * PULMONARY FUNCTION TEST (PFT) (09/21/2017 12:43 PM DIE STORAGE WORKER) Anatomical Region Laterality Modality PFT us Provider Scanning PFT ORDERABLES Final Result documented in this encounter Visit Diagnoses Not on filedocumented in this encounter Care Teams Line Closer Relationship Specialty Start Date End Date Denise Meza MD PCP - General 01/05/17 09/05/18 Wilian Morales MD [address] [place] [address] PCP - General Internal Medicine 09/06/18 07/09/23 Luis Finch MD [address] [place] [address] PCP - General Family Practice 07/10/23 documented as of this encounter
--- OUTSIDE RECORDS SUMMARY | 2025-06-22 11:22 | XMS_ITS | Clinical Summary ---
Author Organization [facility] Haim Santizo Address [address] [place] [address] Care Team Providers Care Cement Despatch Operator Name Role Phone Unavailable Primary Care Provider Unavailabl e Allergies Active Allergy Reactions Criticality Noted Date Comments Decongestant Tablet Palpitations Low 10/12/2018 Medications atorvastatin (LIPITOR) 40 mg tablet Take 40 mg by mouth daily. 5 Active budesonide (ENTOCORT EC) 3 mg Enteric Coated 24 hour capsule 3 mg. 3 Active DULoxetine (CYMBALTA) 60 mg Capsule, Delayed Release(E.C.) Take 1 Capsule by mouth 2 times daily. 5 Active gabapentin (NEURONTIN) 300 mg capsule Take 1 Capsule by mouth 3 times daily. 5 Active hydroxychloroqu ine (PLAQUENIL,SOVU NA) 200 mg tablet Take 200 mg by mouth daily. 2 Active leflunomide (ARAVA) 20 mg Tablet Take 1 Tablet by mouth daily. 5 Active losartan (COZAAR) 25 mg tablet Take 25 mg by mouth daily. 5 Active omeprazole (PriLOSEC) 40 mg Capsule, Delayed Release(E.C.) Take 1 Capsule by mouth daily. 5 Active potassium CHLORIDE (K-DUR,KLOR-CON M20) 20 mEq Extended Release tablet Take 20 mEq by mouth 3 times daily. 5 Active Orencia ClickJect 125 mg/mL Auto-Injector Inject by subcutaneous injection. 4 Active albuterol sulfate HFA 90 mcg/actuation aerosol inhaler 2 PUFF INHALED EVERY 4 - 6 HOURS NEEDED FOR SHORTNESS OF BREATH OR WHEEZING FOR 30 DAYS Active Active Problems No known active problems Encounters Date Type Department Care Team Description 06/22/2025 10:30 AM CDT Office Visit [facility] Oncology and Hematology - Asaf [address] [place] [address] Kumar Walker MD Chronic anemia (Primary Dx) from Last 3 Months Family History Medical History Relation Name Comments Heart Disease Brother No Known Problems Child Heart Disease Father Diabetes Mother Pancreatic Cancer Mother Relation Name Status Comments Brother Alive Child Alive Father Mother Social History Tobacco Use Types Packs/Day Years [...] Mass Index 23 06/22/2025 10:24 AM CDT Plan of Treatment Upcoming Encounters Date Type Department Care Team (Late st Contact Info) Description 07/06/2025 4:30 PM CDT Telephone Check Up [facility] Oncology and Hematology - Asaf [address] [place] [address] Kumar Walker MD [address] [place] [address] Health Maintenance Due Date Last Done Comments BREAST CANCER SCREENING 1999 COLORECTAL SCREENING 2004 Colorectal Cancer Screening 2004 FIT-DNA Q 3 years 2004 FIT/FOBT Q 1 year 2004 Flex Sig/CT Colonography Q 5 years 2004 PNEUMOCOCCAL VACCINE 50+ YEARS (1 of 1 - PCV) 03/25/20 09 ZOSTER VACCINE (1 of 2) 2009 DTAP/TDAP/TD VACCINES (2 - Td or Tdap) 01/20/2018 OSTEOPOROSIS SCREENING 2024 03/08/2015 Medicare Advantage ([place]) Prev entative Visit/Annual Wellness Visit 10/05/2024 INFLUENZA VACCINE (#1) 2025 07/16/2007 RSV VACCINE (60+ or ) (1 - 1-dose 75+ series) [address] [facility] [facility] MCR
--- OUTSIDE RECORDS SUMMARY | 2025-06-22 11:22 | XMS_ITS | Clinical Summary ---
Author Organization [facility] Address [address] [place] [address] Care Team Providers Care Fruit Packer Name Role Phone Denise Meza MD Primary Care Provider Unavailab le Source Comments [facility],non-owned Affiliates and Associated Physician Practices is amultiple site organization consisting of ambulatory clinics and hospital sitesin [place], [place], [place] and [place]. This disclosure is being madepursuant to the Care Everywhere program and may not contain all information available regarding this patient. 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 Gender Identity Not on file Sexual Orientation Not on file Plan of Treatment Upcoming Encounters Date Type Department Care Team (Late st Contact Info) Description 10/30/2025 1:00 PM ROOMING HOUSE INSPECTOR Office Visit [facility] [place] [address] [place] [id number] Health Maintenance Due Date Last Done Comments [...] 2009 ZOSTER VACCINE (1 of 2) 2009 DEPRESSION SCREENING 10/05/2024 MEDICARE AWV CALENDAR YEAR 2024 COVID-19 VACCINE (1 - 2023-2 5 season) 2025 INFLUENZA VACCINE (#1) 2025 Respiratory Syncytial Virus [...] age to complete this topic Insurance MEDICARE [facility] MEDICARE AET[employer] MEDICARE ADV Care Teams Fruit Packer Relationship Specialty Start Date End Date Denise Meza MD PCP - General 06/29/19
--- OUTSIDE RECORDS SUMMARY | 2025-06-22 11:22 | XMS_ITS | Encounter Summary ---
Author Organization [facility] Address [address] [place] [address] Care Team Providers Care Spear Fisher Name Role Phone Denise Meza MD Primary Care Provider Unavailab le Encounter Details Date Type Department Care Team (Late Contact Info) Description 04/10/2022 Lab Requisition [facility] [address] [place] [address] Indra Godwin MD [address] [place] [address] Social History Tobacco Use Types Packs/Day Years Used Date Smoking Tobacco: Never Assessed Comments Unknown Sex and Gender Information Value Date Recorded Sex Assigned at Not on file 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 Gender Identity Not on file Sexual Orientation Not on file documented as of this encounter Plan of Treatment Upcoming Encounters Date Type Department Care Team ([facility] Contact Info) Description 10/30/2025 1:00 PM PIE ICER MACHINE Office Visit [facility] [place] [address] [place] [address] documented as of this encounter Procedures Procedure Name Priority Date/Time Associated Diagnosis Comments DERMATOPATHOLOGY Routine 04/09/2022 12:0 0 AM CDT documented in this encounter Results * DERMATOPATHOLOGY (04/09/2022 12:00 AM CDT) Case Report Dermatopathology Report Case: [id number] Authorizing Provider: Indra Godwin MD Collected: 04/09/2022 12:00 AM Ordering Location: [facility] Received: 04/10/2022 02:49 PM Pathologist: Jessa Recio MD Specimen: Skin, right side nose above bulb 2 1:11 PM CDT DERMATOPATHOLOGY LABORATORY Final Diagnosis Specimen A. SKIN, right side nose above bulb: EPIDERMAL NECROSIS SUGGESTIVE OF EXCORIATION (L98.499) (see comment) 2 1:11 PM CDT DERMATOPATHOLOGY LABORATORY at 1311 CDT Clinical History R/O AK vs dermatitis 1:11 PM CDT DERMATOPATHOLOGY LABORATORY Gross Description Specimen A: Received is one formalin filled container labeled with the patient's name and designated right side nose above bulb. The specimen consists of a shave biopsy measuring 6x5x1 mm. Jar 0. 1:11 PM CDT DERMATOPATHOLOGY LABORATORY Microscopic Description Specimen A. SKIN, right side nose above bulb: The epidermis is focally necrotic and covered with a scale-crust. There is fibrin at the base. COMMENT: Given the superficial nature of the biopsy specimen, a deeper dermal process cannot be excluded. 1:11 PM CDT DERMATOPATHOLOGY LABORATORY Disclaimer An external and internal [...] purposes. Billing Codes Specimen Charges Stain Charges [id number] 1 2 1:11 PM CDT DERMATOPATHOLOGY LABORATORY Embedded Images 1:11 PM CDT DERMATOPATHOLOGY LABORATORY Pathology/Cytolog y TISSUE SPECIMEN FROM SKIN / Unknown 04/09/2022 04/10/2022 2:49 PM CDT Indra Godwin MD LAB - PATHOLOGY/CYTOLOGY ORD ERABLES Final Result DERMATOPATHOLOGY LABORATORY [facility] - Department of Dermatology [facility] Specialized Medicine [address] [place] [address], [address] [phone] documented in this encounter Visit Diagnoses Not on filedocumented in this encounter Care Teams Spear Fisher Relationship Specialty Start Date End Date Denise Meza MD PCP - General 06/29/19 documented as of this encounter
--- OUTSIDE RECORDS SUMMARY | 2025-06-22 11:23 | XMS_ITS | Encounter Summary ---
Author Organization [facility] Address [address] [place] [address] Care Team Providers Care Industrial Analyst Name Role Phone Luis Finch MD Primary Care Provider [phone] Encounter Details Date Type Department Care Team (Late st Contact Info) Description 05/22/2025 Telephone [facility] Medical Group Cardiology [address] [place] [address] aYakov Sánchez MD [address] [facility] [address] [place] [address] Social History Tobacco Use Types Packs/Day Years Used Date Smoking Tobacco: Former Cigarettes Q uit: 09/06/2016 Smokeless Tobacco: Never Alcohol Use Standard Drinks/Week Comments Yes 1 (1 standard drink = 0.6 oz pur e alcohol) Comments Unknown Sex and Gender Information Value Date Recorded Sex Assigned at Not on file 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 Pt was discharged and followed up with her PCP a few weeks ago and she was found to be orthostatic in the office. She said PCP wanted to adjust her meds but she didn't want that and preferred MAF to make adjustments/follow up with her. Pt said she has lost a lot of weight and is still weak and tired. She gets dizzy when she stands up too quickly. Pt has not been checking her BP at home, the readings below are from a few weeks ago. Pt is also uncertain if her BP cuff at home is accurate. Scheduled pt follow with MAF as she requested. Advised her to start checking her BPs dailyabout an hour or two after her morning meds and keep a BP log. Advised her to stay well hydrated and to take her time with changing positions. Pt appreciated the advice and verbalized understanding. * Telephone Encounter - Marisel Jay - 05/22/2025 3:09 PM CDT Pt states her BP has been dropping when she stands. Reports feeling dizzy and nauseas. A month ago she went to her PCP and they told her that her BP is too low. She has not been monitoring her BP because she has a lot of other things going on. 05/04- 169/101 sitting 139/51 standing 05/05- 133/100 sitting 124/49 standing Contact: documented in this encounter Plan of Treatment Not on file documented as of this encounter Visit Diagnoses Not on filedocumented in this encounter Care Teams Industrial Analyst Relationship Specialty Start Date End Date Luis Finch MD PCP - General Family Practice 07/10/23 documented as of this encounter
--- OUTSIDE RECORDS SUMMARY | 2025-06-22 11:23 | XMS_ITS | Encounter Summary ---
Author Organization [facility] Healthcare Address [address] [place] [address] Care Team Providers Care Digital Account Manager Name Role Phone Luis Finch MD Primary Care Provider [phone] Encounter Details Date Type Department Care Team (Late st Contact Info) Description 04/26/2025 Orders Only [facility] Health Information Management [address] [place] [address] Scanning, Provider Social History Tobacco Use Types Packs/Day Years Used Date Smoking Tobacco: Former Cigarettes Q uit: 09/06/2016 Smokeless Tobacco: Never Alcohol Use Standard Drinks/Week Comments Yes 1 (1 standard drink = 0.6 oz pur e alcohol) Comments Unknown Sex and Gender Information Value Date Recorded Sex Assigned at Not on file 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 Gender Identity Not on file Sexual Orientation Not on file documented as of this encounter Plan of Treatment Not on file documented as of this encounter Procedures Procedure Name Priority Date/Time Associated Diagnosis Comments SCAN - RADIOLOGY/IMAGING 04/26/2025 documented in this encounter Results * SCAN - RADIOLOGY/IMAGING (04/26/2025) Anatomical Region Laterality Modality Other us Provider Scanning Final Result documented in this encounter Visit Diagnoses Not on filedocumented in this encounter Care Teams Digital Account Manager Relationship Specialty Start Date End Date Luis Finch MD PCP - General Family Practice 07/10/23 documented as of this encounter
--- OUTSIDE RECORDS SUMMARY | 2025-06-22 11:23 | XMS_ITS | Clinical Summary ---
Author Organization [facility] Address [address] [place] [address] Care Team Providers Care Technical Assistance Consultant Name Role Phone Luis Finch MD Primary Care Provider [phone] Allergies Active Allergy Reactions Criticality Noted Date Comments Alejandro Inhibitors Cough High Adhesive Tape-Silicones Blisters High 03/03/2018 Decongestant Tablet Palpitations Low 10/12/2018 Medications calcium carbonate-vitami n D3 400-133.3 mg-unit tablet Activ e DULoxetine DR (CYMBALTA) 60 mg capsule 2 times daily. 7 Active gabapentin (NEURONTIN) 300 mg capsule TAKE 2 CAPSULES po at night for restless legs syndrome. 5 Active multivitamin tabletIndication s:Vitamin Deficiency Prevention Active cyanocobalamin (Vitamin B-12) 100 mcg tabletIndication s:Prevention of Vitamin B12 Deficiency Active vit B complex 100 no.3-herbs 100 mg tablet daily. 7 Active omeprazole (PriLOSEC) 40 mg capsule 0 Active ALPRAZolam XR (XANAX XR) 0.5 mg 24 hr tablet alprazolam ER 0.5 mg tablet,extended release 24 hr Active leflunomide (ARAVA) 20 mg tablet 1 Active budesonide EC (ENTOCORT EC) 3 mg 24 hr capsule 3 Active hydrOXYchloroQUI NE (PLAQUENIL) 200 mg tablet 2 Active loperamide (IMODIUM) 2 mg capsule 3 Active Orencia ClickJect 125 mg/mL auto-injector Inject under the skin once a week 4 Active atorvastatin (LIPITOR) 40 mg tablet TAKE 1 TABLET BY MOUTH EVERY DAY 90 tablet 2 5 Active metoprolol XL (TOPROL-XL) 25 mg extended release tabletIndication s:PAC (premature atrial contraction),PVC (premature ventricular contraction) TAKE 1/2 TABLET BY MOUTH EVERY DAY 45 tablet 3 5 Active losartan (COZAAR) 25 mg tablet TAKE 1 TABLET (25 MG TOTAL) BY MOUTH DAILY. 90 tablet 3 5 Active amLODIPine (NORVASC) 5 mg tablet TAKE 1 TABLET (5 MG TOTAL) BY MOUTH DAILY. 90 tablet 5 05/18/20 26 Active potassium chloride ER 20 mEq CR tabletIndication s:Hypokalemia TAKE 1 TABLET BY MOUTH THREE TIMES A DAY 270 tablet 1 5 Active Active Problems Problem Noted Date Diagnosed Date Orthostatic hypotension 06/01/2025 Nonrheumatic aortic valve stenosis 06/01/2025 Systolic ejection murmur 02/23/2025 Status post placement [...] Encounters Date Type Department Care Team Description 06/01/2025 3:15 PM CDT Office Visit [facility] Cardiology [address] [facility] [address] [place] [phone] Johnathan Sánchez MD Hyperlipidemia associated with type 2 diabetes mellitus (HCC) (Primary Dx); Hypertension associated with diabetes (HCC); NICM (nonischemic cardiomyopathy) (HCC); Recurrent syncope; Orthostatic hypotension; Nonrheumatic aortic valve stenosis 05/22/2025 Telephone [facility] [address] [place] [phone] Johnathan Sánchez MD 05/15/2025 11:00 AM CDT Ancillary Procedure [facility] Cardiology [address] [facility] [address] [place] [phone] Recurrent syncope; Status post placement of implantable loop recorder 04/26/2025 Orders Only [facility] Health Information Management [address] [place] [id number] Scanning, Provider 04/03/2025 11:30 AM CDT Ancillary Procedure [facility] [address], [place] [address] Recurrent syncope; Status post placement of implantable loop recorder 03/31/2025 Results Follow-Up [facility] [address] [place] [address] Johnathan Sánchez MD Transthoracic Echo (TTE) Complete W Doppler/CF 03/29/2025 2:00 PM CDT Ancillary Procedure [facility] at [address] [place] [address] NICM (nonischemic cardiomyopathy) (HCC); Hypertension associated with diabetes (HCC); Systolic ejection murmur from Last 3 Months Immunizations Immunization Administration Dates Next Due Influenza, Trivalent, IM (MDV) 07/16/2007 Tdap 01/21/2008 Surgical History Surgery Date Site/Laterality Comments OTHER SURGICAL HISTORY SLING URETHROPEXY C/B NON-HEALING TOTAL ABDOMINAL HYSTERECTOMY W/ BILATERAL SALPINGOOPHORECTOMY PAULINA/BSO SALPINGOOPHORECTOMY Salpingo-oophorectomy Bilateral - (Added by TW Conv) [place] TONSILLECTOMY & ADENOIDEC TAL <AGE 12 Tonsillectomy [...] on file 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 Gender Identity Not on file Sexual Orientation Not on file Obstetrics History Last Filed Vital Signs Vital Sign Reading Time Taken Comments Blood Pressure 106/64 06/01/2025 3:40 PM CDT Pulse 85 06/01/2025 3:35 PM CDT Temperature 36.7 C (98 F) 11/14/2020 10:38 AM BILL POSTER 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 Respiratory Rate 15 07/25/2020 2:16 PM CDT Oxygen Saturation 97% 06/01/2025 3:35 PM CDT Inhaled Oxygen Concentration - - Weight 61.7 kg (136 lb) 06/01/2025 3:35 PM CDT Height 165.1 cm (5' 5) 06/01/2025 3:35 PM CDT Body Mass Index 22.63 06/01/2025 3:35 PM CDT Plan of Treatment Health Maintenance Due Date Last Done Comments Albumin Creatinine Ratio, Urine 1960 Breast Cancer Screening-Mammogram 1960 Depression Screening 1960 Hemoglobin A1C 1960 Hepatitis C Screening 1960 Dilated Eye Exam 1959 Foot Exam 1960 Hepatitis B Screening 1977 Pneumococcal vaccine 65+ (2 of 2 - PPSV23, PCV20, or PCV21) 03/08/2015 01/11/2015 Osteoporosis Screening-Bone Density Scan 03/08/2017 03/08/2015 eGFR 07/27/2019 07/27/2018 Fall Risk Assessment 07/25/2021 07/25/2020 Colon Cancer Screening-Colonoscopy 02/23/2024 02/22/2014 Well Visit 65+ 2024 Covid-19 Vaccine (2024-2 6 season) 2025 06/29/2023, 05/18/2022, 08/16/2021, Additional history exists Influenza Vaccine (#1) 2025 , 06/29/2023, 09/01/2022, Additional history exists Lipid Panel 02/23/2026 02/23/2025, 04/10/2023, 11/03/2022, Additional history exists DTaP/Tdap/Td Vaccine (3 - Td or Tdap) 02/15/2029 02/15/2019, 01/21/2008 Colon Cancer Screening-CT Colonography Discontinued 02/22/2014 Colon Cancer Screening-DNA Stool Discontinued 02/23/20 Colon Cancer Screening-FIT Discontinued 02/22/2014 Colon Cancer Screening-Sigmoidoscopy Discontinued 02/22/2014 Zoster Vaccine Completed 02/21/2018, 12/14/2017 Procedures Procedure Name Priority Date/Time Associated Diagnosis Comments DEVICE CHECK - REMOTE Routine 05/16/2025 11:26 AM CDT Recurrent syncope Status post placement of implantable loop recorder SCAN - LABS 04/28/2025 SCAN - RADIOLOGY/IMAGING 04/26/2025 DEVICE CHECK - REMOTE Routine 04/05/2025 2:47 PM CDT Recurrent syncope Status post placement of implantable loop recorder TRANSTHORACIC ECHO (TTE) COMPLETE W DOPPLER/CF WO [...] Recently Relevant to Health Maintenance Results * DEVICE CHECK - REMOTE (05/16/2025 11:26 AM CDT) Anatomical Region Laterality Modality Other Narrative 06/09/2025 12:40 PM CDT Medtronic [id number] Loop Recorder. Dx; Syncope. DOI 07/31/2023-Fleissner. Vera. [facility] remote. Routine ILR remote. Normal device function. Battery function-good. Presenting rhythm: NSR Medications: Amlodipine 5 mg, atorvastatin 40 mg, losartan 25 mg, Toprol-XL 25 mg Counters since last scheduled transmission on 04/03/25. No auto or patient recorded episodes noted. See scanned report. [facility] remote f/u 06/26/25. Indra Dsouza RN Gucci Valdes MD [facility] PROC EDURES Final Result * SCAN - LABS (04/28/2025) Provider Scanning Final Result * SCAN - RADIOLOGY/IMAGING (04/26/2025) Anatomical Region Laterality Modality Other us Provider Scanning Final Result * DEVICE CHECK - REMOTE (04/05/2025 2:47 PM CDT) Anatomical Region Laterality Modality Other Narrative 04/28/2025 10:16 AM CDT Medtronic [id number] Loop Recorder. Dx; Syncope. DOI 07/31/2023-Lucio. Jody. [facility] remote. Routine ILR remote. Normal device function. Battery function-good. Presenting rhythm: NSR Medications: Amlodipine 5 mg, losartan 25 mg, Toprol-XL 25 mg Counters since last scheduled transmission on 02/20/25. No auto or patient recorded episodes noted. See scanned report. [facility] remote f/u 05/15/25. Indra Dsouza RN Gucci Valdes MD [facility] PROC EDURES Final Result * TRANSTHORACIC ECHO (TTE) COMPLETE W DOPPLER/CF WO CONTRAST (03/29/2025 2:34 PM CDT) Estimated EF 60 % CONS SCIMAGE EF Mod BP 63 % CONS SCIMAGE Anatomical Region Laterality Modality Ultrasound 03/29/2025 2:00 PM CDT Narrative 03/29/2025 4:38 PM CDT [facility] [address] , [address], [place] [address] P:[phone] P:[phone] Echocardiographic Report Patient Name: SHEILA MARTINEZ L : 1960 Study Date: 03/29/2025 2:00:46 PM Gender: F Conical Mixer: Location: [facility] Ref Provider: JOHNATHAN SÁNCHEZ Height(Cm): [...] mmHg Estimated EF 60 % AV Peak Yosfe 1.93 m/s [ 1.00 - 1.70 ] [...] Interpretation Site: Exam was interpreted at [facility]. Left Ventricle: Normal left ventricular systolic [...] - 03/29/2025 [facility], [address], [place] [address] P:[phone] P:[phone] Echocardiographic Report Patient Name: SHEILA MARTINEZ L : 1960 Study Date: 03/29/2025 2:00:46 PM Gender: F Conical Mixer: CALIN Location: [facility] Ref Provider: JOHNATHAN SÁNCHEZ [...] Interpretation Site: Exam was interpreted at [facility]. Left Ventricle: Normal left ventricular systolic [...] Johnathan Sánchez MD 03/29/2025 4:38:20 PM CDT us Johnathan Sánchez MD CV ECHO PROCEDURES Final [...] Capillary blood 02/23/2025 2 :35 PM CDT us Johnathan Sánchez MD POINT OF CARE TEST [...] approximately 13% higher for people identified as -Mauritian. eGFR NON-AFR. ESTONIAN 101 > OR = 60 mL/min/1 .73m2 [...] ALT (SGPT) 19 6 - 29 U/L [facility] [place] 07/27/2018 12:0 1 PM CDT 07/27/2018 12:01 PM CDT Narrative Resulting Agency Comment Performing Organization Information: Site ID: [id number] Name: [facility] Ye Address: [address] [place] [address] Director: Berlin Cook D.O., MPH Denise Meza [...] ROMERO M.D. on Mar 08 2015 3:46P [id number] Procedure Note Provider, MD Saumya - 01/26/2017 [...] ROMERO M.D. on Mar 08 2015 3:46P [id number] us Historical Provider IMG DXA PROCEDURES Final Result * COLONOSCOPY REPORT (02/22/2014) Anatomical Region Laterality Modality Other Narrative 02/22/2014 Ordered by an unspecified provider. us Historical Provider GI PROCEDURE ORDERABLES F inal Result from Last 3 Months or Most Recently Relevant to Health Maintenance Insurance MEDICARE ANTHEM ACCESS MEDICARE ANTHEM ACCESS [facility] [employer]ET[employer] MEDICARE GOLD Care Teams Technical Assistance Consultant Relationship Specialty Start Date End Date Luis Finch MD PCP - General Family Practice 07/10/23
[2025-06-22 15:37] LABS: Alanine Aminotransferase 25 U/L (6-35); Albumin Level 4.1 g/dL (3.5-5.1); Alkaline Phosphatase 90 U/L (38-126); Anion Gap 6 mmol/L (4-12); Aspartate Amino Transferase 49 U/L (14-36); Bilirubin,Total 0.7 mg/dL (0.2-1.3); Blood Urea Nitrogen 14 mg/dL (7-17); Calcium 9.5 mg/dL (8.4-10.2); Carbon Dioxide 25 mmol/L (22-30); Chloride 103 mmol/L (98-107); Estimated Glomerular Filt Rate 58; Glucose 126 mg/dL (65-110); Iron 106 ug/dL (37-170); Potassium 4.2 mmol/L (3.4-5.0); Sodium 134 mmol/L (137-145); Total Protein 6.8 g/dL (6.3-8.2)
[2025-06-22 15:46] LABS: Percent Iron Saturation 34 % (20-50)
[2025-06-22 16:19] LABS: Ferritin 127.00 ng/mL (11.1-264)
[2025-06-22 16:48] LABS: Vitamin B12 384.0 pg/mL (239-931)
== END 2025-06-22 10:44 | disposition home or self-care (01) ==
PROVIDERS: PCP Family Medicine; Visit Provider Internal Medicine Hematology & Oncology
DX: D64.9 Anemia, unspecified (principal)
CPT/HCPCS: 36415; 80053; 82607; 82728; 82746; 83540; 83550; 83921; 85025

== ENCOUNTER 2025-07-12 08:03 | Outpatient (CLI) | payer MEDICARE, SELFPAY ==
--- NOTE | 2025-07-12 12:17 | WPDSIXMINUTE ---
Six Minute Walk Procedure Procedure Performed Pulmonary Stress Test (6 min walk) Six Minute Walk Six Minute Walk: This is a 6 minute walk test. The test was performed and interpreted in accordance with the 2014 ERS/ATS task force guidelines. Findings: The patient's resting room air oxygen saturation measured by pulse oximetry was 98%, the heart rate was 67 bpm, and the modified Jemma dyspnea score was 0.5. Patient ambulated for 244 meters and oxygen saturation remained 97 to 99%. At the end of the study the heart rate was 70 bpm and the modified Jemma dyspnea score was 0.5. The patient did not qualify for supplemental oxygen at rest or with ambulation. There are no prior studies for comparison.
--- NOTE | 2025-07-12 12:19 | WPDPFTINT ---
PFT Procedure Performed PFT Procedure Performed Spirometry with Pre/Post Bronchodilator Plethysmography (Lung Vol) Diffusing Cap (DLCO) Flow Vol Loop PFT Interpretation This is a pulmonary function test with pre and post-bronchodilator spirometry, plethysmography and diffusing capacity. The test was performed and results interpreted in accordance with the 2019 and 2005 ATS/ERS Task Force guidelines respectively using the Global Lung Function Initiative-2012 reference equations. Patient demonstrated good effort and cooperation. Reproducibility criteria were met. The quality of the pre bronchodilator spirometry maneuver was Grade A and post bronchodilator spirometry maneuver was Grade A. Findings: Spirometry: The contour the inspiratory and expiratory flow tracing are normal. The pre bronchodilator FVC is 3.29 L, 89% predicted. The pre bronchodilator FEV1 is 2.40 L, 84% predicted. The pre bronchodilator FEV1: FVC ratio is 73%. The post bronchodilator FVC is 3.28 L, representing no change. The post bronchodilator FEV1 is 2.50 L, representing a 4% increase. The post bronchodilator FEV1: FVC ratio is 76%. Plethysmography: Total lung capacity is 5.09 L, 85% predicted. The functional residual capacity is 3.26 L, 105% predicted. The residual volume is 1.80 L, 86% predicted. Diffusing capacity: The diffusing capacity unadjusted for hemoglobin and carboxyhemoglobin is 16.6, 66% predicted. The diffusing capacity adjusted for alveolar volume is 3.73, 86% predicted. Impression: The spirometry is normal without evidence of an obstructive abnormality. There is no significant improvement after inhaling a single dose of albuterol. The lung volumes are normal. The diffusing capacity unadjusted for hemoglobin and carboxyhemoglobin is mildly decreased and normalizes when adjusted for alveolar volume. There are no prior studies for comparison
== END 2025-07-12 08:04 | disposition home or self-care (01) ==
PROVIDERS: PCP Family Medicine; Visit Provider Physician Assistant
DX: J43.9 Emphysema, unspecified (principal); R06.02 Shortness of breath
CPT/HCPCS: 94060; 94618; 94726; 94729